=== PATIENT | female | born 1955 | race Caucasian/White ===

== ENCOUNTER 2017-11-02 21:20 | Emergency (ER) | payer MEDICARE, MEDICAID, SELFPAY ==
[2017-11-02 21:23] VITALS: BP 234/82; PULSE 73; RESP 19; TEMP 36.7; O2SAT 99; BMI 35.4
[2017-11-02 22:21] LABS: Absolute Lymphocyte Count 2.65 X10^3/ul (0.83-4.51); Absolute Neutrophil Count 5.7 X10^3/uL (2.0-7.7); Basophil# 0.06 X10^3/uL; Basophil% 0.6 % (0-1); Eosinophil# 0.25 X10^3/uL; Eosinophils% 2.7 % (0-5); Hematocrit 36.4 % (37-47); Hemoglobin 11.7 g/dl (12.0-15.0); Lymphocyte # 2.65 X10^3/ul (4.0); Lymphocyte % 28.3 % (19-41); Mean Corp Hgb Conc 32.1 g/gl (32-36); Mean Corpuscular Hgb 28.8 pg (27.0-32.0); Mean Corpuscular Volume 89.7 fL (81-99); Mean Platelet Vol. 10.6 fl (6.2-12.0); Monocyte# 0.67 X10^3/uL; Monocyte% 7.1 % (0-10); Neutrophil # 5.72 X10^3/uL (2.7-7.7); POSITIVE COUNT NO; POSITIVE DIFFERENTIAL NO; POSITIVE MORPHOLOGY NO; Platelet Count 381 K/mm3 (150-450); RBC Distribution Width CV 17.1 % (11.6-14.6); RBC Distribution Width SD 54.3 fl (35.1-43.9); Red Blood Count 4.06 M/mm3 (4.2-5.4); White Blood Count 9.4 K/mm3 (4.4-11.0)
[2017-11-02 22:31] LABS: Anion Gap 6 (5-15); BUN 7 mg/dL (7-18); BUN/Creat Ratio 13.3 RATIO (10-20); Calcium,Total 8.8 mg/dL (8.5-10.1); Chloride 105 mmol/L (98-107); Creatinine, Serum 0.53 mg/dL (0.55-1.02); EST Glomerular Filtration Rate 125 mL/min (>60); Est Glom Filt Rate - Afr Amer 152 mL/min (>60); Estimated Creatinine Clearance 92.21 ml/min; Glucose 88 mg/dL (70-110); Potassium 3.8 mmol/L (3.5-5.1); Sodium Level 141 mmol/L (136-145)
[2017-11-02 23:25] VITALS: BP 192/75; PULSE 70; RESP 13
--- NOTE | 2017-11-02 23:37 | ED.DCSUM_ITS ---
- ER Visit Summary Date of Service: 11/02/17 Chief Complaint: Swelling and redness right and left leg. History of Present Illness: The patient is a 61 F who presents because of redness to the right and left leg. She also reports swelling. She states all of these symptoms started today. She denies fever, chills night sweats. She denies neuropathy or diabetes. Per old records she has history of peripheral arterial disease. There is no history of trauma. She denies symptoms of claudication. There is a history of congestive heart failure however, she denies orthopnea PND. Physical Examination: Vital signs are marked for an elevated blood pressure 192/ 75. She is obese with a BMI of 35.4. HEENT exam is unremarkable. Heart is regular without murmur, gallop or rub. S1 and S2 are normal. Lungs are clear to auscultation with good movement of air bilaterally. There is lymphedema that is 2+ right and left leg and feet. DP pulse is palpable bilaterally. There is erythema with slight warmth anterior distal one third of the right leg and there is faint erythema anterior left leg. There is no induration, lymphangitis or popliteal/inguinal lymphadenopathy. Test Results: White count is normal with a hemoglobin 11.7. Electrode panel is normal. Emergency Department Course and Treatment: This may represent cellulitis. There is evidence of lymphedema secondary to inactivity. Blood work was obtained to assess kidney function and white count. I was informed by nursing staff several times that she requested pain medicine. She was offered Tylenol. Of note she had minimal pain when I assessed her. She does have a depressed affect. Treatment Plan: Because she has allergy to amoxicillin she was treated with clindamycin for strep and staph coverage. She was given a prescription for clindamycin. Disposition: Discharge to home with appropriate home-going instructions Impression: 1. Cellulitis anterior right leg 2. Bilateral lymphedema This note was generated with [employer] dictation software. It may contain incorrect words, spelling, and punctuation that were not noted in review of the chart prior to signing ED Disposition - Plan for ED Patient: Disposition: Home or Assisted Living Chief Complaint: Cellulitis Instructions: Discharge Instructions for Cellulitis, ED Lymphedema Prescriptions: Clindamycin HCl 300 mg PO 4X/DAY #30 cap Referrals: Isidro Brian MD [Primary Care Provider] - 3-5 Days Additional Instructions: Recommend taking Tylenol for your pain.
[2017-11-03] MEDS: Clindamycin HCl 150 MG Capsule 300 MG PO (00:11)
[2017-11-03 00:20] VITALS: BP 194/70; PULSE 71; RESP 20; O2SAT 98
--- NOTE | 2017-11-03 00:20 | ED.RN ---
PT BP ELEVATED SINCE ARRIVAL BY SQUAD IN ED. PT HYPERTENSIVE WHEN APPROVED FOR DISCHARGE. THIS RN SPOKE WITH DR. TRAN ABOUT PT ELEVATED BP SINCE DR. MICHELLE HAD LEFT FOR DAY. DR. TRAN REVIEWED PT VS IN ED AND HOME MEDICATIONS. PT EDUCATED TO MONITOR BP AT HOME TWICE DAILY FOR NEXT WEEK. PT DENIES PEÑALOZA, DIZZINESS, CHEST OR OTHER HTN SX. PT HAS FOLLOW UP WITH DR. HOWE TODAY. VERBALIZES UNDERSTANDING OF IMPORTANCE OF MONITORING BLOOD PRESSURE AND TAKING MEDICATION PRESCRIBED. PT EDUCATED TO RETURN IF HAVING ANY SX OF HTN SUCH HEADACHE DIZZINESS WEAKNESS. PT VERBALIZES UNDERSTANDING. IV D/C AND COVERED WITH 2X2 GAUZE AND PAPER TAPE. MINIMAL BLEEDING NOTED. PT WHEELED TO FAMILY VEHICLE IN WHEELCHAIR AFTER BEING ASSISTED UP TO BATHROOM BY THIS RN. PT VERBALIZES UNDERSTANDING OF HOMEGOING SCRIPT.
== END 2017-11-03 00:25 | disposition home or self-care (01) ==
PROVIDERS: Emergency Provider Emergency Medicine; Family Provider Internal Medicine; PCP Internal Medicine
DX: L03.115 Cellulitis of right lower limb (principal); I89.0 Lymphedema, not elsewhere classified; E66.9 Obesity, unspecified; Z68.35 Body mass index [BMI] 35.0-35.9, adult; I11.0 Hypertensive heart disease with heart failure; I50.9 Heart failure, unspecified; I73.9 Peripheral vascular disease, unspecified; Z79.82 Long term (current) use of aspirin; Z79.899 Other long term (current) drug therapy; Z72.0 Tobacco use
CPT/HCPCS: 80048; 85025; 99285; A4216

== ENCOUNTER 2017-11-12 13:50 | Emergency (ER) | payer MEDICARE, MEDICAID, SELFPAY ==
[2017-11-12 13:50] VITALS: BP 165/89; PULSE 79; RESP 16; TEMP 36.5; O2SAT 96; BMI 35.4
--- NOTE | 2017-11-12 14:07 | RAD_ITS ---
STUDY: X-RAY - PELVIS AND LEFT HIP REASON FOR EXAM: Female, 61 years old. Pain after fall from bed. TECHNIQUE: Radiological exam, hip, unilateral, with pelvis when performed; 2 or 3 views. COMPARISON: None. FINDINGS: There is a non-specific bowel gas pattern. Normal visualized soft tissue structures. Normal bilateral iliac wings, sacroiliac joints and visualized sacrum. Normal bilateral superior and inferior pubic rami. Normal pubic symphysis. Normal bilateral ischial tuberosities. Normal left visualized femoral head. Normal left acetabulum. Normal left hip joint space. Foreshortening of the right femoral neck. Impaction fracture of the right femoral neck into the right femoral head is worrisome. RAD/Hip 2-3 Views with Pelvis IMPRESSION: 1. No acute fracture or dislocation of the pelvis and left hip. 2. Suspicious telescoping fracture of the right femoral neck into the right femoral head. Dedicated radiographs of the right hip will be helpful if clinically warranted. Electronically Signed: Enrico Bermeo MD at 15:42 EST , Service support ,
--- NOTE | 2017-11-12 14:13 | RAD_ITS ---
STUDY: X-RAY - RIGHT KNEE REASON FOR EXAM: Female, 61 years old. Pain after fall from bed. TECHNIQUE: 4 view(s) of the knee. COMPARISON: 10/16/2017. FINDINGS: Diffuse osteopenia. Normal visualized distal femur. Osteophytic spurs in the medial and lateral proximal tibial condyles. Suspicious old fracture deformity underneath the medial femoral condyle. This is unchanged. Normal proximal tibiofibular articulation. Narrowing of the medial femorotibial compartment. Normal lateral femorotibial compartment. Pronounced narrowing of the patellofemoral articulation with chronic lateral subluxation of the patella. No joint effusion. The soft tissue structures are unremarkable. RAD/Knee 4 or More Views IMPRESSION: 1. 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 2. Mild degenerative osteoarthrosis in the medial femorotibial compartment. 3. Suspicious old fracture deformity underneath the left medial proximal tibial condyle. 4. No obvious acute fracture or dislocation. 5. No obvious significant interval changes when compared to 10/16/2017. COMMENT: If fracture remains a strong clinical suspicion, CT of the right knee with coronal and sagittal reconstructions will help clarify. Electronically Signed: Enrico Bermeo MD at 15:32 EST , Service support ,
--- NOTE | 2017-11-12 14:14 | RAD_ITS ---
STUDY: X-RAY - LEFT KNEE REASON FOR EXAM: Female, 61 years old. Pain after fall from bed. TECHNIQUE: 4 view(s) of the knee. COMPARISON: None. FINDINGS: Diffuse osteopenia. Normal visualized distal femur. Minimal spurs in the medial and lateral proximal tibial condyles. Normal proximal fibula. Normal proximal tibiofibular articulation. Pronounced narrowing of the medial femorotibial compartment due to chondromalacia. Normal lateral femorotibial compartment. Pronounced narrowing of the patellofemoral articulation with spur formation. There is chronic lateral subluxation of patella. The soft tissue structures are unremarkable. RAD/Knee 4 or More Views IMPRESSION: 1. No suspicious acute fracture or dislocation of the left knee. 2. Pronounced degenerative osteoarthrosis of the patellofemoral articulation with probable chronic lateral subluxation of the patella. 3. 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 Electronically Signed: Enrico Bermeo MD at 15:33 EST , Service support ,
[2017-11-12] MEDS: oxyCODONE 5 MG Tablet PO (14:26)
[2017-11-12 14:34] LABS: Absolute Lymphocyte Count 2.56 X10^3/ul (0.83-4.51); Absolute Neutrophil Count 9.4 X10^3/uL (2.0-7.7); Basophil# 0.04 X10^3/uL; Basophil% 0.3 % (0-1); Eosinophil# 0.08 X10^3/uL; Eosinophils% 0.6 % (0-5); Hematocrit 42.6 % (37-47); Hemoglobin 14.3 g/dl (12.0-15.0); Lymphocyte # 2.56 X10^3/ul (4.0); Lymphocyte % 20.3 % (19-41); Mean Corp Hgb Conc 33.6 g/gl (32-36); Mean Corpuscular Hgb 29.4 pg (27.0-32.0); Mean Corpuscular Volume 87.7 fL (81-99); Mean Platelet Vol. 9.5 fl (6.2-12.0); Monocyte# 0.52 X10^3/uL; Monocyte% 4.1 % (0-10); Neutrophil # 9.38 X10^3/uL (2.7-7.7); Neutrophil % 74.5 % (47-70); POSITIVE COUNT NO; POSITIVE DIFFERENTIAL NO; POSITIVE MORPHOLOGY NO; Platelet Count 399 K/mm3 (150-450); RBC Distribution Width CV 16.7 % (11.6-14.6); RBC Distribution Width SD 53.5 fl (35.1-43.9); Red Blood Count 4.86 M/mm3 (4.2-5.4); White Blood Count 12.6 K/mm3 (4.4-11.0)
[2017-11-12 14:48] LABS: Anion Gap 7 (5-15); BUN 7 mg/dL (7-18); BUN/Creat Ratio 12.6 RATIO (10-20); Chloride 106 mmol/L (98-107); Creatinine, Serum 0.56 mg/dL (0.55-1.02); EST Glomerular Filtration Rate 118 mL/min (>60); Est Glom Filt Rate - Afr Amer 142 mL/min (>60); Estimated Creatinine Clearance 87.27 ml/min; Glucose 95 mg/dL (74-106); Potassium 3.6 mmol/L (3.5-5.1); Sodium Level 137 mmol/L (136-145)
--- NOTE | 2017-11-12 15:53 | EKG12_ITS ---
Test Reason : DYSRHYTHMIA Blood Pressure : / mmHG Vent. Rate : 071 BPM Atrial Rate : 071 BPM P-R Int : 170 ms QRS Dur : 084 ms QT Int : 404 ms P-R-T Axes : 065 079 076 degrees QTc Int : 439 ms Normal sinus rhythm Poor R wave progression Confirmed by SHAVON ESCOBAR, AURORA ([id number]), news editor MORTEZA HUSTON ([id number]) on 11/14/2017 9:44:29 AM Referred By: MELLY Confirmed By:AURORA SANDS MD
[2017-11-12] MEDS: Ondansetron 4 MG/2 ML Vial IV (16:01)
--- NOTE | 2017-11-12 16:15 | RAD_ITS ---
STUDY: X-RAY - PELVIS AND RIGHT HIP REASON FOR EXAM: Female, 61 years old. Fall TECHNIQUE: Radiological exam, hip, unilateral, with pelvis when performed; 2 or 3 views. COMPARISON: None. FINDINGS: The bones are diffusely demineralized. There are surgical clips within the right inguinal region. There appears to be a subcapital femoral fracture. There are degenerative changes of the right hip. RAD/Hip Min 2 Views (Portable) IMPRESSION: Findings concerning for a nondisplaced right femoral fracture. Electronically Signed: Lianet Mcghee MD at 17:22 EST Tel , Service support ,
--- NOTE | 2017-11-12 16:22 | CT_ITS ---
Study: CT right lower extremity without contrast Prior study: None. CLINICAL HISTORY: Status post fall from syncope, abnormal right hip x-ray PROCEDURE: Multiple computed tomographic images of the right hip were obtained at 2.5 mm intervals using contiguous 2.5 mm thick slices in the axial projection. Coronal and sagittal reconstructions were obtained. Radiation dose: Total exam DLP: 1025.46 FINDINGS: There is no evidence of fracture of the visualized proximal right femur, right hip, or right hemipelvis. There are degenerative changes of the right femoral head with subchondral geode formation. Joint space narrowing is seen. There is subcutaneous fatty stranding of the medial right gluteal region. There is no evidence of soft tissue hematoma. Soft tissue fascial planes are preserved. An iliac bypass graft is noted. CT/Extremity Lower without Contra IMPRESSION: No evidence of fracture. Degenerative changes of the right hip as reported above. Subcutaneous fatty stranding of the medial right gluteal region. Electronically Signed: Gordon Munoz MD at 18:15 EST , Service support ,
[2017-11-12 16:24] VITALS: BP 157/79; PULSE 69; RESP 16; O2SAT 95
--- NOTE | 2017-11-12 16:26 | ED.VISSUMM ---
- ER Visit Summary Date of Service: 11/12/17 Chief Complaint: Bilateral hip and knee pain after rolling out of bed History of Present Illness: The patient is a 61 F rolled out of bed today and landed on her left hip but then essentially rolled over and hit her right hip and knee as well. She was able to walk afterwards but is having pain, mostly in the left hip. She did not hit her head or lose consciousness. She recalls the entire event and is quite adamant that she did not lose consciousness or have a syncopal event. She has no symptoms of infection or other complaints at this time. Physical Examination: No sign of head trauma. No neck tenderness. Heart tones are regular without murmur. Lungs are clear bilaterally. Abdomen is soft and nontender. No focal or lateralizing neuro findings. She does have tenderness on the left hip laterally but no pain with logroll. Bilateral knee tenderness but still fairly full range of motion. Skin is intact. No deformity. Normal distal neurovascular examination. She does have a wound on her right distal leg which she states is being treated as an outpatient and actually looks better than it has for the last few months. Test Results: Labs are basically within normal limits. Left hip plain films negative for acute fracture but revealed a possible right femoral neck fracture seen on the AP pelvis. Bilateral knee plain films negative for acute fracture. There is an old appearing fracture on the right however she really does not have any significant tenderness there and I do not think she needs a CT of the right knee as I think the likelihood of an occult fracture is extremely low. In terms of her right hip, I did reevaluate her and she does have moderate tenderness laterally but really no significant pain with logroll. She was bearing weight at home without much difficulty. I did obtain dedicated right hip plain films and the cortex appears fairly smooth inferiorly but there is a possible femoral neck fracture noted. I am not absolutely convinced that this represents a fracture and I think a CT scan is indicated at this time. This will be turned over to the oncoming physician to check the results. If negative, she would like to go home because she was ambulating prior to arrival however if positive she will be admitted for orthopedics consultation. Emergency Department Course and Treatment: CT right hip pending, to be checked by the oncoming physician Treatment Plan: Discharge home if CT right hip negative, admit if there is a fracture Disposition: Impression: Initial encounter bilateral knee contusions, initial encounter left hip contusion, initial encounter right hip pain with possible femoral neck fracture, CT scan pending This note was generated with [employer] dictation software. It may contain incorrect words, spelling, and punctuation that were not noted in review of the chart prior to signing ED Disposition - Plan for ED Patient: Chief Complaint: Syncope Referrals: Isidro Brian MD [Primary Care Provider] -
--- NOTE | 2017-11-12 18:21 | ED.DEP ---
ED Disposition - Plan for ED Patient: Chief Complaint: Syncope Instructions: ED Contusion Soft Tissue Referrals: Isidro Brian MD [Primary Care Provider] -
[2017-11-12] MEDS: oxyCODONE 5 MG Tablet 10 MG PO (18:30)
[2017-11-12 18:39] VITALS: BP 157/74; PULSE 74; O2SAT 93
== END 2017-11-12 18:41 | disposition home or self-care (01) ==
PROVIDERS: Emergency Provider Emergency Medicine; Family Provider Internal Medicine; PCP Internal Medicine
DX: S70.02XA Contusion of left hip, initial encounter (principal); S80.02XA Contusion of left knee, initial encounter; S80.01XA Contusion of right knee, initial encounter; M25.551 Pain in right hip; W06.XXXA Fall from bed, initial encounter; Y93.89 Activity, other specified; Y92.9 Unspecified place or not applicable; I73.9 Peripheral vascular disease, unspecified; I10 Essential (primary) hypertension; E78.00 Pure hypercholesterolemia, unspecified; F17.200 Nicotine dependence, unspecified, uncomplicated; Z79.82 Long term (current) use of aspirin; Z79.899 Other long term (current) drug therapy
CPT/HCPCS: 73502; 73564; 73700; 80048; 85025; 93005; 96374; 99285; A4216; J2405

== ENCOUNTER → 2018-06-04 12:44 | Outpatient (CLI) | payer MEDICARE, MEDICAID, SELFPAY ==
[2018-06-04 13:39] LABS: BUP Internal Control LINE = VALID (VALID); Buprenorphine Drug Screen Positive (<10 ng/mL)
[2018-06-04 13:46] LABS: Amphetamine Urine VISTA NEGATIVE (<1000 ng/mL); Barbiturate Urine VISTA NEGATIVE (< 200 ng/mL); Benzodiazepine Urine VISTA NEGATIVE (< 200 ng/mL); Cocaine Urine VISTA NEGATIVE (< 300 ng/mL); Ecstacy Urine VISTA POSITIVE (< 500 ng/mL); Methadone Urine VISTA NEGATIVE (< 300 ng/mL); PCP Urine VISTA NEGATIVE (< 25 ng/mL); THC Urine VISTA NEGATIVE (< 50 ng/mL); Vista UDS pH Range 5
== END ==
PROVIDERS: Family Provider Internal Medicine; PCP Internal Medicine; Visit Provider Anesthesiology Pain Medicine
DX: F11.20 Opioid dependence, uncomplicated (principal)
CPT/HCPCS: 80307

== ENCOUNTER → 2018-06-25 12:30 | Outpatient (CLI) | payer MEDICARE, MEDICAID, SELFPAY ==
[2018-06-25 12:45] LABS: Mucous, Urine 0 SEEN /hpf (<or=2+)
[2018-06-25 13:08] LABS: Color, Urine Yellow (Yellow); Glucose, Dipstick Normal (Normal); Ketone-Dipstick Negative (Negative); Leukocyte Esterase-Dipstick 25 /ul (Negative); Nitrite-Dipstick Negative (Negative); Occult Blood-Urine 10 /ul (Negative); Protein-Dipstick 30 mg/dl (Negative); Urine Bilirubin Dipstick Negative (Negative); Urine Clarity Sl. Cloudy (Clear); Urine Urobilinogen Normal (Normal)
[2018-06-25 13:14] LABS: Bacteria RARE /hpf (None Seen); Red Blood Cells-Urine 0-5 SEEN /hpf (0-5); Squamous Epithelial Cells - UA 0-5 SEEN /hpf (5-10); White Blood Cells 0-5 SEEN /hpf (0-5)
[2018-06-25 13:42] LABS: ALB/GLOB Ratio 0.6 RATIO (0.9-2.4); AST(SGOT) 16 U/L (15-37); Alanine Aminotransfer ALT/SGPT 11 U/L (13-56); Albumin, Serum 2.7 g/dL (3.2-5.0); Alkaline Phosphatase 118 U/L (45-117); Anion Gap 9 (5-15); BUN 15 mg/dL (7-18); BUN/Creat Ratio 19.3 RATIO (10-20); Calcium,Total 8.6 mg/dL (8.5-10.1); Chloride 107 mmol/L (98-107); Creatinine, Serum 0.78 mg/dL (0.55-1.02); EST Glomerular Filtration Rate 80 mL/min (>60); Est Glom Filt Rate - Afr Amer 96 mL/min (>60); Globulin 4.7 g/dL (2.2-4.2); Glucose 101 mg/dL (74-106); Potassium 4.4 mmol/L (3.5-5.1); Protein, Total 7.4 g/dL (6.4-8.2); Sodium Level 139 mmol/L (136-145)
== END ==
PROVIDERS: Family Provider Internal Medicine; PCP Internal Medicine; Visit Provider Internal Medicine
DX: K81.9 Cholecystitis, unspecified (principal); R82.99 Other abnormal findings in urine
CPT/HCPCS: 36415; 80053; 81001

== ENCOUNTER 2018-07-06 11:00 | Outpatient (RCR) | payer MEDICARE, MEDICAID, SELFPAY ==
[2018-06-15 09:16] VITALS: BP 148/62; PULSE 89; RESP 18; TEMP 35.1; BMI 33.6
--- NOTE | 2018-06-15 10:49 | PCM.WC.HP ---
(1) Peripheral arterial disease Status: Chronic Current Visit: Yes Code(s): I73.9 - Peripheral vascular disease, unspecified (2) Peripheral neuropathy Status: Chronic Current Visit: Yes Qualifiers: Peripheral neuropathy type: polyneuropathy associated with underlying disease Qualified Code(s): G63 - Polyneuropathy in diseases classified elsewhere Code(s): G62.9 - Polyneuropathy, unspecified (3) Tobacco abuse Status: Chronic Current Visit: Yes Code(s): Z72.0 - Tobacco use (4) Ulcer of left lower extremity with fat layer exposed Status: Chronic Current Visit: No Code(s): L97.922 - Non-pressure chronic ulcer of unspecified part of left lower leg with fat layer exposed (5) Venous insufficiency Status: Chronic Current Visit: Yes Code(s): I87.2 - Venous insufficiency (chronic) (peripheral) (6) stents in leg for neuropathy Status: Chronic Current Visit: Yes (7) Traumatic ulcer of left lower leg with fat layer exposed Status: Acute Current Visit: Yes Code(s): L97.922 - Non-pressure chronic ulcer of unspecified part of left lower leg with fat layer exposed History of Present Illness Date of Service: 06/15/18 Chief Complaint: Left lower leg ulcer for 3 months History of Wound: -year-old white female they came to us with an open ulcer on her left lower extremity. Patient hit it on a chair or something at home has been using antibiotic ointments she thought she had closed it and then it reopened and is now much deeper and bigger. Been followed by her primary care doctor that has been using Santyl on the ulcer and is now referred to the wound center for not improvement. Patient has the glove effect up just above the ulcer on both legs of peripheral arterial disease of redness and poor circulation. Skin is hard and she suffers from neuropathy. Past Medical History Past Medical History: Chronic Problems (Last Reviewed 06/06/18 @ 13:17 by Yaima Daniel) Ulcer of left lower extremity with fat layer exposed (Chronic) Venous insufficiency (Chronic) Tricompartmental knee joint arthritis (Chronic) Degeneration of lumbar intervertebral disc (Chronic) Asymptomatic postmenopausal status (Chronic) Impaired physical mobility (Chronic) stents in leg for neuropathy (Chronic) trigeminal neuralgia repair (Chronic) Anxiety (Chronic) Hypertension (Chronic) Dyspnea on exertion (Chronic) Peripheral arterial disease (Chronic) Peripheral neuropathy (Chronic) Localized swelling, mass or lump of neck (Chronic) Gallstone (Chronic) Goiter (Chronic) Tobacco abuse (Chronic) Past Medical History: Open ulcer traumatic left inner leg Surgical History: - Allergies/Adverse Reactions: Allergies amoxicillin Allergy (Unknown, Verified 05/25/18 15:57) Vomiting Home Medications: Ambulatory Orders Medication Instructions Recorded Tizanidine HCl [Zanaflex] 4 mg PO 4X/DAY 07/26/17 Aspirin [Aspirin, Baby] 81 mg PO DAILY@0800 07/27/17 traZODone [Desyrel] 50 mg PO QHS PRN 08/17/17 Buprenorphine 1 patch TRANSDERMAL QWEEK #1 10/19/17 patch.tdwk lisinopril 5 mg tablet 10 mg PO BID tab 11/03/17 albuterol sulfate HFA 90 2 puff INHALATION Q6H 02/06/18 mcg/actuation aerosol inhaler gabapentin 600 mg tablet 400 mg PO .qid tab 02/06/18 tramadol 50 mg tablet 50 mg PO ONCE 02/06/18 duloxetine 30 mg capsule,delayed 60 mg PO DAILY #180 cap 03/01/18 release varenicline 0.5 mg (11)-1 mg (42) See Label Instructions PO PER PKG 06/06/18 tablets in a dose pack DIR #53 tab - Family History Maternal Family History: Family History (Last Reviewed 06/06/18 @ 13:17 by Yaima Daniel) Mother Heart disease Myocardial infarction Hypertension Father Cancer Heart Disease Paternal Family History: Family History (Last Reviewed 06/06/18 @ 13:17 by Yaima Daniel) Mother Heart disease Myocardial infarction Hypertension Father Cancer No pertinent history Smoking Status: Current every day smoker Review of Systems Constitutional: Denies: Chills, Fever Eyes: Denies: Blurred vision, Drainage, Pain HEENT: Denies: Difficulty Hearing, Difficulty Swallowing, Sore Throat, Visual Changes Cardiovascular: Denies: Chest Pain, Palpitations, Syncope Respiratory: Denies: Cough, Shortness of Breath Gastrointestinal: Denies: Abdominal Pain, Nausea, Vomiting Genitourinary: Denies: Dysuria, Frequency Musculoskeletal: Denies: Joint Pain, Muscle pain Skin: Reports: Wounds - Left lower leg ulcer traumatic. Denies: Jaundice, Rash Neurological: Denies: Balance problems, Change in Speech, Difficulty swallowing, Focal weakness Psychiatric: Denies: Anxiety, Depression Endocrine: Denies: Change in Body Habitus Hematologic/ Lymphatic: Denies: Adenopathy - Physical Exam Vital Signs Temp Pulse Resp BP 95.1 F L 89 18 148/62 H 06/15/18 09:16 06/15/18 09:16 06/15/18 09:16 06/15/18 09:16 General: Oriented x3, Cooperative, Well developed HEENT: Atraumatic, PERRLA Oral: Moist Mucosa Neck: Supple, No JVD Lungs: Clear to auscultation, Normal air movement Cardiovascular: Regular rate, Regular Rhythm, Murmur Abdomen: Bowel Sounds Present, Soft, Non Tender, No Hepato-splenomegaly Extremities: No clubbing, No edema Skin: Ulcer/ Wound - Ulcer on her left lower leg inner traumatic Wound Measurements and Assessment WC - Nurse 1 - General Ulcer Measurement Start: 06/15/18 08:56 Freq: Status: Active Protocol: Activity Type Activity Date Activity User E-Sign Co-Sign Detail Recorded Client Recorded Date Recorded By Document 06/15/18 09:16 [id number] 06/15/18 09:41 06/15/18 09:16 Wound Center Nurse 1 [Ulcer Assessment] #1 LLE MEDIAL ULCER -Combined with other wound No -Current Size (cm) - Length 4.3 -Current Size (cm) - Width 2.8 -Current Size (cm) - Depth 0.3 -Total Square Cm 12.04 -Date of Last Picture (Recall this 06/15/18 field) -Photo Taken Yes -Epithelialization None Present -Tunneling No -Undermining/Tunneling Yes -Undermining/Tunneling Starts (O' 2 clock) -Undermining/Tunneling Ends (O'clock) 4 -Maximum Distance (cm) 0.4 -Circular Undermining No -Exudate Amt Medium (34-66%) -Exudate Type Serosanguineous -Wound Margin Distinct, Outline Attached -Granulation Amt None Present (0 %) -Granulation Quality N/A -Slough/Fibrin Yes -Necrosis Amt Medium (34-66%) -Necrotic Tissue Type Adherent Slough -Structure Exposed None/Limited to Skin Breakdown -Texture (Pilar-wound Skin Appearance) Assessed Localized Edema -Moisture (Pilar-wound Skin Appearance No Abnormality ) Assessed -Color (Pilar-wound Skin Appearance) Assessed Erythema -Temperature (Pilar-wound Skin No Abnormality Appearance) (Pt Warm) -Tenderness on Palpation (Pilar-wound No Skin Appearance) -Ulcer Cleansing Rinsed/ Irrigated with Saline -Foul Odor after Cleansing No -Anesthetic Used 4% Lidocaine Solution [Edema Assessment] -Lower Limb Edema Present Yes -Right Calf (cm) 32 -Right Ankle (cm) 21.5 -Left Calf (cm) 40 -Left Ankle (cm) 22 WC - Nurse 2 - General Ulcer CM Notes Start: 06/15/18 08:56 Freq: Status: Active Protocol: Activity Type Activity Date Activity User E-Sign Co-Sign Detail Recorded Client Recorded Date Recorded By Document 06/15/18 09:55 MW [id number] 06/15/18 10:02 MW 06/15/18 09:55 Wound Center Nurse 2 [Procedure/Treatment] #1 LLE MEDIAL ULCER -Time 09:56 -Correct Patient Yes -Correct Side, Site, Position Yes -Correct Procedure Yes -Procedure Performed Yes -Type of Procedure Debridement -Clinical Debridement Subcutaneous -Post Debridement Size (cm) - Length 4.3 -Post Debridement Size (cm) - Width 2.5 -Post Debridement Size (cm) - Depth 1.5 -Total Square Cm 10.75 -Wound/Ulcer Outcome Not Healed -Ulcer Cleansing Rinsed/ Irrigated with Saline -Foul Odor after Cleansing No -Bioengineered Tissue No -Bleeding Controlled with Pressure -Treatment Response Procedure Tolerated Well [See Physician Procedure note for Specifics] Pain Scale: 0-10 Numeric [Pain] -Is Patient Pain Free? Yes Musculoskeletal: No Tenderness to Palpation of Joints or Extremities Lymphatic: No Cervical, Supraclavicular, or Inguinal Adenopathy Neurological: Cranial nerves II-XII grossly intact, Neuro grossly intact Psych/Mental Status: Normal Affect, Appropriate Debridement Note Post-Debridement Measurements/Treatment WC - Nurse 2 - General Ulcer CM Notes Start: 06/15/18 08:56 Freq: Status: Active Protocol: Activity Type Activity Date Activity User E-Sign Co-Sign Detail Recorded Client Recorded Date Recorded By Document 06/15/18 09:55 MW [id number] 06/15/18 10:02 MW 06/15/18 09:55 Wound Center Nurse 2 #1 LLE MEDIAL ULCER -Time 09:56 -Correct Patient Yes -Correct Side, Site, Position Yes -Correct Procedure Yes -Procedure Performed Yes -Type of Procedure Debridement -Clinical Debridement Subcutaneous -Post Debridement Size (cm) - Length 4.3 -Post Debridement Size (cm) - Width 2.5 -Post Debridement Size (cm) - Depth 1.5 -Total Square Cm 10.75 -Wound/Ulcer Outcome Not Healed -Ulcer Cleansing Rinsed/ Irrigated with Saline -Foul Odor after Cleansing No -Bioengineered Tissue No -Bleeding Controlled with Pressure -Treatment Response Procedure Tolerated Well Pain Scale: 0-10 Numeric Is Patient Pain Free? Yes Wound debrided: Eft lower leg medial side traumatic Type of Debridement: Excisional debridement Anesthesia Used: 5% Lidocaine Gel Depth: Down to and including healthy tissue, in the subcutaneous layer, to muscle Percentage of wound debrided: 100 Instrument Used: 7mm curette Tissue Removed: Fibrin and devitalized tissue Severity: Fat Layer Exposed Amount of bleeding with debridement: Mild Bleeding Controlled with: Compression and gauze Patient tolerated procedure well Assessment/Plan Active Problems (Last Reviewed 06/06/18 @ 13:17 by Yaima Daniel) Traumatic ulcer of left lower leg with fat layer exposed (Acute) Venous insufficiency (Chronic) stents in leg for neuropathy (Chronic) Peripheral arterial disease (Chronic) Peripheral neuropathy (Chronic) Tobacco abuse (Chronic) Assessment: Traumatic ulcer left lower leg. PAD. PVD. Neuropathy bilateral lower legs Plan: Wash leg with Hibiclens. Continue using Santyl to the wound base nickel thickness cover with moistened gauze then regular gauze Mik and a single layer Tubigrip. Follow-up in 2 weeks
[2018-07-06 11:54] VITALS: BP 135/54; PULSE 95; RESP 16; TEMP 35.8; BMI 33.6
--- NOTE | 2018-07-06 12:28 | PCM.WC.PN ---
(1) Peripheral arterial disease Status: Chronic Current Visit: Yes Code(s): I73.9 - Peripheral vascular disease, unspecified (2) Peripheral neuropathy Status: Chronic Current Visit: Yes Qualifiers: Peripheral neuropathy type: polyneuropathy associated with underlying disease Qualified Code(s): G63 - Polyneuropathy in diseases classified elsewhere Code(s): G62.9 - Polyneuropathy, unspecified (3) Tobacco abuse Status: Chronic Current Visit: Yes Code(s): Z72.0 - Tobacco use (4) Ulcer of left lower extremity with fat layer exposed Status: Chronic Current Visit: No Code(s): L97.922 - Non-pressure chronic ulcer of unspecified part of left lower leg with fat layer exposed (5) Venous insufficiency Status: Chronic Current Visit: Yes Code(s): I87.2 - Venous insufficiency (chronic) (peripheral) (6) stents in leg for neuropathy Status: Chronic Current Visit: Yes (7) Traumatic ulcer of left lower leg with fat layer exposed Status: Acute Current Visit: Yes Code(s): L97.922 - Non-pressure chronic ulcer of unspecified part of left lower leg with fat layer exposed Type of Wound Chief Complaint: Left lower leg ulcer for 3 months History of Wound: -year-old white female they came to us with an open wound on her left lower extremity. Patient hit it on a chair or something at home has been using antibiotic ointments she thought she had closed it and then it reopened and is now much deeper and bigger. Been followed by her primary care doctor that has been using Santyl on the wound and is now referred to the wound center for not improvement. Patient has the glove effect up just above the ulcer on both legs of peripheral arterial disease of redness and poor circulation. Skin is hard and she suffers from neuropathy. Progress of Wound: Today is the first time we have seen her in over 2 weeks patient was put on Santyl which seems to be helping with the debridement. Large amounts of yellow slough was cleaned out of the wound. Patient tolerated well will continue using Santyl for another week before changing to may be a skin substitute. - Physical Exam Vital Signs Temp Pulse Resp BP 96.5 F L 95 16 135/54 H 07/06/18 11:54 07/06/18 11:54 07/06/18 11:54 07/06/18 11:54 General: Oriented x3, Cooperative, Well developed HEENT: Atraumatic, PERRLA Oral: Moist Mucosa Neck: Supple, No JVD Lungs: Clear to auscultation, Normal air movement Cardiovascular: Regular rate, Regular Rhythm Abdomen: Bowel Sounds Present, Soft, Non Tender, No Hepato-splenomegaly Extremities: No clubbing, Edema, - Skin: Ulcer/ Wound - Wound left lower medial leg Wound Measurements and Assessment WC - Nurse 1 - General Ulcer Measurement Start: 06/15/18 08:56 Freq: Status: Active Protocol: Activity Type Activity Date Activity User E-Sign Co-Sign Detail Recorded Client Recorded Date Recorded By Document 07/06/18 11:54 MT [id number] 07/06/18 11:56 MT 07/06/18 11:54 Wound Center Nurse 1 [Ulcer Assessment] #1 LLE MEDIAL ULCER -Combined with other wound No -Current Size (cm) - Length 4.5 -Current Size (cm) - Width 2.2 -Current Size (cm) - Depth 0.2 -Total Square Cm 9.90 -Photo Taken No -Tunneling No -Undermining/Tunneling No -Circular Undermining No -Exudate Amt Small (1-33%) -Exudate Type Serosanguineous -Wound Margin Thickened & Rolled Under -Granulation Amt Large (67-100%) -Granulation Quality Pale -Necrosis Amt Small (1-33%) -Necrotic Tissue Type Adherent Slough -Texture (Pilar-wound Skin Appearance) Assessed Localized Edema -Moisture (Pilar-wound Skin Appearance Assessed ) -Color (Pilar-wound Skin Appearance) Assessed Hemosiderin Staining -Temperature (Pilar-wound Skin No Abnormality Appearance) (Pt Warm) -Tenderness on Palpation (Pilar-wound Yes Skin Appearance) -Ulcer Cleansing Rinsed/ Irrigated with Saline -Foul Odor after Cleansing No -Anesthetic Used 4% Lidocaine Solution [Edema Assessment] -Lower Limb Edema Present Yes -Left Calf (cm) 38 -Left Ankle (cm) 22.5 WC - Nurse 2 - General Ulcer CM Notes Start: 06/15/18 08:56 Freq: Status: Active Protocol: Activity Type Activity Date Activity User E-Sign Co-Sign Detail Recorded Client Recorded Date Recorded By Document 07/06/18 12:03 MW [id number] 07/06/18 12:05 MW 09/28/18 12:03 Wound Center Nurse 2 [Procedure/Treatment] #1 LLE MEDIAL ULCER -Time 12:04 -Correct Patient Yes -Correct Side, Site, Position Yes -Correct Procedure Yes -Procedure Performed Yes -Type of Procedure Debridement -Clinical Debridement Subcutaneous -Post Debridement Size (cm) - Length 4.5 -Post Debridement Size (cm) - Width 2.2 -Post Debridement Size (cm) - Depth 0.3 -Total Square Cm 9.90 -Wound/Ulcer Outcome Not Healed -Ulcer Cleansing Rinsed/ Irrigated with Saline -Foul Odor after Cleansing No -Bioengineered Tissue No -Bleeding Controlled with Pressure -Treatment Response Procedure Tolerated Well [See Physician Procedure note for Specifics] Pain Scale: 0-10 Numeric [Pain] -Is Patient Pain Free? Yes Musculoskeletal: No Tenderness to Palpation of Joints or Extremities Lymphatic: No Cervical, Supraclavicular, or Inguinal Adenopathy Neurological: Cranial nerves II-XII grossly intact, Neuro grossly intact Psych/Mental Status: Normal Affect, Appropriate Debridement Note Post-Debridement Measurements/Treatment WC - Nurse 2 - General Ulcer CM Notes Start: 06/15/18 08:56 Freq: Status: Active Protocol: Activity Type Activity Date Activity User E-Sign Co-Sign Detail Recorded Client Recorded Date Recorded By Document 06/15/18 09:55 MW [id number] 06/15/18 10:02 MW Document 07/06/18 12:03 MW [id number] 07/06/18 12:05 MW 06/15/18 07/06/18 09:55 12:03 Wound Center Nurse 2 #1 LLE MEDIAL ULCER -Time 09:56 12:04 -Correct Patient Yes Yes -Correct Side, Site, Position Yes Yes -Correct Procedure Yes Yes -Procedure Performed Yes Yes -Type of Procedure Debridement Debridement -Clinical Debridement Subcutaneous Subcutaneous -Post Debridement Size (cm) - Length 4.3 4.5 -Post Debridement Size (cm) - Width 2.5 2.2 -Post Debridement Size (cm) - Depth 1.5 0.3 -Total Square Cm 10.75 9.90 -Wound/Ulcer Outcome Not Healed Not Healed -Ulcer Cleansing Rinsed/ Rinsed/ Irrigated with Irrigated with Saline Saline -Foul Odor after Cleansing No No -Bioengineered Tissue No No -Bleeding Controlled with Pressure Pressure -Treatment Response Procedure Procedure Tolerated Well Tolerated Well Pain Scale: 0-10 Numeric Is Patient Pain Free? Yes Yes Wound debrided: Left lower leg wound Type of Debridement: Excisional debridement Anesthesia Used: 5% Lidocaine Gel Depth: Down to and including healthy tissue, in the subcutaneous layer, to muscle Percentage of wound debrided: 100 Instrument Used: 7mm curette Tissue Removed: Slough Amount of bleeding with debridement: Mild Assessment/Plan Active Problems (Last Reviewed 06/06/18 @ 13:17 by Yaima Daniel) Traumatic ulcer of left lower leg with fat layer exposed (Acute) Venous insufficiency (Chronic) stents in leg for neuropathy (Chronic) Peripheral arterial disease (Chronic) Peripheral neuropathy (Chronic) Tobacco abuse (Chronic) Assessment: Traumatic ulcer left lower leg. PAD. PVD. Neuropathy bilateral lower legs Plan: Wash leg with Hibiclens. Continue using Santyl to the wound base nickel thickness cover with moistened gauze then regular gauze Mik and a single layer Tubigrip. Follow-up in 1 weeks
== END 2018-07-08 23:59 ==
LOC: WC 11:00
PROVIDERS: Family Provider Internal Medicine; PCP Internal Medicine; Visit Provider Nurse Practitioner
DX: I73.9 Peripheral vascular disease, unspecified (principal); G62.9 Polyneuropathy, unspecified; I87.2 Venous insufficiency (chronic) (peripheral); L97.822 Non-pressure chronic ulcer of other part of left lower leg with fat layer exposed; Z72.0 Tobacco use; I10 Essential (primary) hypertension; Z79.899 Other long term (current) drug therapy; Z79.82 Long term (current) use of aspirin
CPT/HCPCS: 11042; 87070; 87075; 87076; 87077; 87186; 87205; 99213; G0463

== ENCOUNTER 2018-07-20 08:19 | Outpatient (RCR) | payer MEDICARE, SELFPAY ==
[2018-07-09 00:15] VITALS: BP 135/54; PULSE 95; RESP 16; TEMP 35.8
[2018-07-20 11:31] VITALS: BP 123/56; PULSE 62; RESP 18; TEMP 35.8
--- NOTE | 2018-07-20 12:39 | PN.PCM_ITS ---
(1) MRSA (methicillin resistant Staphylococcus aureus) infection Status: Acute Current Visit: Yes Code(s): A49.02 - Methicillin resistant Staphylococcus aureus infection, unspecified site (2) Nonhealing ulcer of left lower extremity Status: Acute Current Visit: Yes Code(s): L97.929 - Non-pressure chronic ulcer of unspecified part of left lower leg with unspecified severity Type of Wound Chief Complaint: Left lower leg ulcer for 3 months History of Wound: -year-old white female they came to us with an open wound on her left lower extremity. Patient hit it on a chair or something at home has been using antibiotic ointments she thought she had closed it and then it reopened and is now much deeper and bigger. Been followed by her primary care doctor that has been using Santyl on the wound and is now referred to the wound center for not improvement. Patient has the glove effect up just above the ulcer on both legs of peripheral arterial disease of redness and poor circulation. Skin is hard and she suffers from neuropathy. Progress of Wound: Santyl which seems to be helping with the debridement somewhat we had to score today but did get a lot of debridement out. Recultured her because she was growing MRSA and some other bizarre bacteria's. Large amounts of yellow slough was cleaned out of the wound. Will apply for skin substitute for her and continue with the Santyl to we can get it cleaned. Still very dark and erythematous around the edge of the wound - Physical Exam Vital Signs Temp Pulse Resp BP 96.4 F L 62 18 123/56 H 07/20/18 11:31 07/20/18 11:31 07/20/18 11:31 07/20/18 11:31 General: Oriented x3, Cooperative, Well developed HEENT: Atraumatic, PERRLA Oral: Moist Mucosa Neck: Supple, No JVD Lungs: Clear to auscultation, Normal air movement Cardiovascular: Regular rate, Regular Rhythm Abdomen: Bowel Sounds Present, Soft, Non Tender, No Hepato-splenomegaly Extremities: No clubbing, No edema, - - Left lower leg wound Wound Measurements and Assessment WC - Nurse 1 - General Ulcer Measurement Start: 07/20/18 11:30 Freq: Status: Active Protocol: Activity Type Activity Date Activity User E-Sign Co-Sign Detail Recorded Client Recorded Date Recorded By Document 10/12/18 11:31 RB [id number] 07/20/18 11:47 RB 07/20/18 11:31 Wound Center Nurse 1 [Ulcer Assessment] #1 LLE MEDIAL ULCER -Combined with other wound No -Current Size (cm) - Length 4.5 -Current Size (cm) - Width 2.1 -Current Size (cm) - Depth 0.4 -Total Square Cm 9.45 -Photo Taken No -Tunneling No -Undermining/Tunneling No -Circular Undermining No -Exudate Amt Small (1-33%) -Exudate Type Serosanguineous -Wound Margin Distinct, Outline Attached -Granulation Amt Small (1-33%) -Granulation Quality [place] -Slough/Fibrin Yes -Necrosis Amt Large (67-100%) -Necrotic Tissue Type Adherent Slough -Structure Exposed N/A -Texture (Pilar-wound Skin Appearance) Assessed -Moisture (Pilar-wound Skin Appearance Assessed ) -Color (Pilar-wound Skin Appearance) Assessed -Temperature (Pilar-wound Skin No Abnormality Appearance) (Pt Warm) -Tenderness on Palpation (Pilar-wound No Skin Appearance) -Ulcer Cleansing Rinsed/ Irrigated with Saline -Foul Odor after Cleansing No -Anesthetic Used 5% Lidocaine Gel [Edema Assessment] -Lower Limb Edema Present Yes -Left Calf (cm) 37 -Left Ankle (cm) 20 WC - Nurse 2 - General Ulcer CM Notes Start: 07/20/18 11:30 Freq: Status: Active Protocol: Activity Type Activity Date Activity User E-Sign Co-Sign Detail Recorded Client Recorded Date Recorded By Document 07/20/18 12:12 MW [id number] 07/20/18 12:15 MW 07/20/18 12:12 Wound Center Nurse 2 [Procedure/Treatment] #1 LLE MEDIAL ULCER -Time 12:12 -Correct Patient Yes -Correct Side, Site, Position Yes -Correct Procedure Yes -Procedure Performed Yes -Type of Procedure Debridement -Clinical Debridement Subcutaneous -Post Debridement Size (cm) - Length 4.5 -Post Debridement Size (cm) - Width 2.0 -Post Debridement Size (cm) - Depth 0.3 -Total Square Cm 9.00 -Wound/Ulcer Outcome Not Healed -Ulcer Cleansing Rinsed/ Irrigated with Saline -Foul Odor after Cleansing No -Bioengineered Tissue No -Bleeding Controlled with Pressure -Treatment Response Procedure Tolerated Well [See Physician Procedure note for Specifics] Pain Scale: 0-10 Numeric [Pain] -Is Patient Pain Free? Yes Musculoskeletal: No Tenderness to Palpation of Joints or Extremities Lymphatic: No Cervical, Supraclavicular, or Inguinal Adenopathy Neurological: Cranial nerves II-XII grossly intact, Neuro grossly intact Psych/Mental Status: Normal Affect, Appropriate Debridement Note Post-Debridement Measurements/Treatment WC - Nurse 2 - General Ulcer CM Notes Start: 07/20/18 11:30 Freq: Status: Active Protocol: Activity Type Activity Date Activity User E-Sign Co-Sign Detail Recorded Client Recorded Date Recorded By Document 07/20/18 12:12 MW [id number] 07/20/18 12:15 MW 07/20/18 12:12 Wound Center Nurse 2 #1 LLE MEDIAL ULCER -Time 12:12 -Correct Patient Yes -Correct Side, Site, Position Yes -Correct Procedure Yes -Procedure Performed Yes -Type of Procedure Debridement -Clinical Debridement Subcutaneous -Post Debridement Size (cm) - Length 4.5 -Post Debridement Size (cm) - Width 2.0 -Post Debridement Size (cm) - Depth 0.3 -Total Square Cm 9.00 -Wound/Ulcer Outcome Not Healed -Ulcer Cleansing Rinsed/ Irrigated with Saline -Foul Odor after Cleansing No -Bioengineered Tissue No -Bleeding Controlled with Pressure -Treatment Response Procedure Tolerated Well Pain Scale: 0-10 Numeric Is Patient Pain Free? Yes Wound debrided: Eft lower leg wound Type of Debridement: Excisional debridement Anesthesia Used: 5% Lidocaine Gel Depth: Down to and including healthy tissue, in the subcutaneous layer Percentage of wound debrided: 100 Instrument Used: 7mm curette, #15 blade Tissue Removed: Slough Severity: Limited To Skin Breakdown Amount of bleeding with debridement: Mild Bleeding Controlled with: Compression and gauze Patient tolerated procedure well Assessment/Plan Cultures of the wound aerobic and anaerobic wound Active Problems (Last Reviewed 06/06/18 @ 13:17 by Yaima Daniel) MRSA (methicillin resistant Staphylococcus aureus) infection (Acute) Nonhealing ulcer of left lower extremity (Acute) Assessment: Traumatic ulcer left lower leg. PAD. PVD. Neuropathy bilateral lower legs Plan: Wash leg with Hibiclens. Continue using Santyl to the wound base nickel thickness cover with moistened gauze then regular gauze Mik and a single layer Tubigrip. Follow-up in 2 weeks. Call back with results of cultures
== END 2018-08-08 23:59 ==
LOC: WC 08:19
PROVIDERS: Family Provider Internal Medicine; PCP Internal Medicine; Referring Provider Nurse Practitioner; Visit Provider Internal Medicine
DX: I73.9 Peripheral vascular disease, unspecified (principal); Z86.14 Personal history of Methicillin resistant Staphylococcus aureus infection; G62.9 Polyneuropathy, unspecified; L97.821 Non-pressure chronic ulcer of other part of left lower leg limited to breakdown of skin
CPT/HCPCS: 11042

== ENCOUNTER 2018-09-07 10:15 | Outpatient (RCR) | payer MEDICARE, SELFPAY ==
[2018-08-09 00:27] VITALS: BP 123/56; PULSE 62; RESP 18; TEMP 35.8
[2018-08-09 10:37] VITALS: BP 128/79; PULSE 98; RESP 22; TEMP 36.3
--- NOTE | 2018-08-09 12:57 | HP.PCM_ITS ---
(1) Nonhealing ulcer of left lower extremity Status: Chronic Current Visit: Yes Code(s): L97.929 - Non-pressure chronic ulcer of unspecified part of left lower leg with unspecified severity (2) Peripheral arterial disease Status: Chronic Current Visit: Yes Code(s): I73.9 - Peripheral vascular disease, unspecified (3) Tobacco abuse Status: Chronic Current Visit: No Code(s): Z72.0 - Tobacco use (4) Venous insufficiency Status: Chronic Current Visit: Yes Code(s): I87.2 - Venous insufficiency (chronic) (peripheral) History of Present Illness Chief Complaint: Left lower leg ulcer for 3 months History of Wound: Ms. Narayanan is a 62yo well known to me and who has been seen here at the wound center by Heather Borges NP. She is now transferring care to [place]. She has been managed for left lower extremity ulcer. Denies any complaints at this time. Has been applying Santyl with some improvement noted per patient. Past Medical History Past Medical History: Chronic Problems (Last Reviewed 06/06/18 @ 13:17 by Yaima Daniel) Nonhealing ulcer of left lower extremity (Chronic) Ulcer of left lower extremity with fat layer exposed (Chronic) Venous insufficiency (Chronic) Tricompartmental knee joint arthritis (Chronic) Degeneration of lumbar intervertebral disc (Chronic) Asymptomatic postmenopausal status (Chronic) Impaired physical mobility (Chronic) stents in leg for neuropathy (Chronic) trigeminal neuralgia repair (Chronic) Anxiety (Chronic) Hypertension (Chronic) Dyspnea on exertion (Chronic) Peripheral arterial disease (Chronic) Peripheral neuropathy (Chronic) Localized swelling, mass or lump of neck (Chronic) Gallstone (Chronic) Goiter (Chronic) Tobacco abuse (Chronic) Surgical History: - Allergies/Adverse Reactions: Allergies amoxicillin Allergy (Unknown, Verified 05/25/18 15:57) Vomiting Home Medications: Ambulatory Orders Medication Instructions Recorded Tizanidine HCl [Zanaflex] 4 mg PO 4X/DAY 07/26/17 Aspirin [Aspirin, Baby] 81 mg PO DAILY@0800 07/27/17 Buprenorphine 1 patch TRANSDERMAL QWEEK #1 10/19/17 patch.tdwk lisinopril 5 mg tablet 10 mg PO BID tab 11/03/17 albuterol sulfate HFA 90 2 puff INHALATION Q6H 02/06/18 mcg/actuation aerosol inhaler gabapentin 600 mg tablet 400 mg PO .qid tab 02/06/18 tramadol 50 mg tablet 50 mg PO ONCE 02/06/18 duloxetine 30 mg capsule,delayed 60 mg PO DAILY #180 cap 03/01/18 release varenicline 0.5 mg (11)-1 mg (42) See Rx Instructions PO PER PKG DIR 06/06/18 tablets in a dose pack #53 tab trazodone 50 mg tablet 50 mg PO QHS PRN #60 tab 07/18/18 - Family History Maternal Family History: Family History (Last Reviewed 06/06/18 @ 13:17 by Yaima Daniel) Mother Heart disease Myocardial infarction Hypertension Father Cancer Heart Disease Paternal Family History: Family History (Last Reviewed 06/06/18 @ 13:17 by Yaima Daniel) Mother Heart disease Myocardial infarction Hypertension Father Cancer No pertinent history Smoking Status: Current every day smoker Review of Systems Constitutional: Denies: Anorexia, Chills, Malaise, Weakness Eyes: Denies: Blurred vision, Pain HEENT: Denies: Difficulty Hearing, Difficulty Swallowing Cardiovascular: Denies: Chest Pain, Chest Tightness Gastrointestinal: Denies: Abdominal Pain, Hematemesis, Vomiting Skin: Denies: Jaundice - Physical Exam Vital Signs Temp Pulse Resp BP 97.3 F L 98 22 H 128/79 H 08/09/18 10:37 08/09/18 10:37 08/09/18 10:37 08/09/18 10:37 General: Alert, Oriented x3, Cooperative, No apparent distress HEENT: Atraumatic Oral: Moist Mucosa Neck: Supple Lungs: Normal air movement Abdomen: Soft, Obese Extremities: No cyanosis, Edema Skin: Ulcer/ Wound Wound Measurements and Assessment WC - Nurse 1 - General Ulcer Measurement Start: 08/09/18 10:36 Freq: Status: Active Protocol: Activity Type Activity Date Activity User E-Sign Co-Sign Detail Recorded Client Recorded Date Recorded By Document 08/09/18 10:37 DL [id number] 08/09/18 10:49 DL 08/09/18 10:37 Wound Center Nurse 1 [Ulcer Assessment] #1 LLE MEDIAL ULCER -Current Size (cm) - Length 4.6 -Current Size (cm) - Width 2.2 -Current Size (cm) - Depth 0.4 -Total Square Cm 10.12 -Photo Taken No -Exudate Amt Medium (34-66%) -Exudate Type Serosanguineous -Wound Margin Distinct, Outline Attached -Granulation Amt None Present (0 %) -Slough/Fibrin Yes -Necrosis Amt Large (67-100%) -Necrotic Tissue Type Adherent Slough -Structure Exposed N/A -Texture (Pilar-wound Skin Appearance) Excoriation Localized Edema Scarring -Color (Pilar-wound Skin Appearance) Hemosiderin Staining Rubor -Temperature (Pilar-wound Skin No Abnormality Appearance) (Pt Warm) -Tenderness on Palpation (Pilar-wound No Skin Appearance) -Ulcer Cleansing Wound Cleanser -Foul Odor after Cleansing No -Anesthetic Used 4% Lidocaine Solution WC - Nurse 2 - General Ulcer CM Notes Start: 08/09/18 10:36 Freq: Status: Active Protocol: Activity Type Activity Date Activity User E-Sign Co-Sign Detail Recorded Client Recorded Date Recorded By Document 08/09/18 10:59 MW [id number] 08/09/18 11:03 MW 08/09/18 10:59 Wound Center Nurse 2 [Procedure/Treatment] -Time 11:00 -Correct Patient Yes -Correct Side, Site, Position Yes -Correct Procedure Yes -Procedure Performed Yes -Type of Procedure Debridement -Clinical Debridement Subcutaneous -Post Debridement Size (cm) - Length 4.6 -Post Debridement Size (cm) - Width 2.6 -Post Debridement Size (cm) - Depth 0.6 -Total Square Cm 11.96 -Wound/Ulcer Outcome Not Healed -Ulcer Cleansing Rinsed/ Irrigated with Saline -Foul Odor after Cleansing No -Bioengineered Tissue No -Bleeding Controlled with Pressure -Treatment Response Procedure Tolerated Well [See Physician Procedure note for Specifics] Pain Scale: 0-10 Numeric [Pain] -Is Patient Pain Free? Yes Musculoskeletal: No Muscle Wasting Neurological: Cranial nerves II-XII grossly intact Psych/Mental Status: Normal Affect Debridement Note Post-Debridement Measurements/Treatment - Nurse 2 - General Ulcer CM Notes Start: 08/09/18 10:36 Freq: Status: Active Protocol: Activity Type Activity Date Activity User E-Sign Co-Sign Detail Recorded Client Recorded Date Recorded By Document 08/09/18 10:59 MW [id number] 08/09/18 11:03 MW 08/09/18 10:59 Wound Center Nurse 2 #1 LLE MEDIAL ULCER -Time 11:00 -Correct Patient Yes -Correct Side, Site, Position Yes -Correct Procedure Yes -Procedure Performed Yes -Type of Procedure Debridement -Clinical Debridement Subcutaneous -Post Debridement Size (cm) - Length 4.6 -Post Debridement Size (cm) - Width 2.6 -Post Debridement Size (cm) - Depth 0.6 -Total Square Cm 11.96 -Wound/Ulcer Outcome Not Healed -Ulcer Cleansing Rinsed/ Irrigated with Saline -Foul Odor after Cleansing No -Bioengineered Tissue No -Bleeding Controlled with Pressure -Treatment Response Procedure Tolerated Well Pain Scale: 0-10 Numeric Is Patient Pain Free? Yes Wound debrided: Left lower extremity Wound Grade/Stage: Stage II Type of Debridement: Excisional debridement Anesthesia Used: 4% Lidocaine Solution Depth: Down to and including healthy tissue, in the subcutaneous layer Percentage of wound debrided: 100 Instrument Used: 7mm curette - Vitals Tissue Removed: Slough and devitalized tissue. Severity: Fat Layer Exposed Amount of bleeding with debridement: Mild Bleeding Controlled with: Pressure Patient tolerated procedure well Assessment/Plan Active Problems (Last Reviewed 06/06/18 @ 13:17 by Yaima Daniel) Nonhealing ulcer of left lower extremity (Chronic) Venous insufficiency (Chronic) Peripheral arterial disease (Chronic) Assessment: Left lower extremity ulcer. Peripheral arterial disease. Bilateral lower extremity edema. Plan: Debridement done as documented above. Procedure was well-tolerated. Continue Santyl daily with Adaptic over top. Double layer Tubigrip for edema management. Elevate lower extremities when seated and in bed. Avoid idle standing. Increased protein intake recommended. Exercise as tolerated. Advised to call with any questions or concerns. Follow-up in 1 week. This note was generated with [employer] dictation software. It may contain incorrect words, spelling, and punctuation that were not noted in checking the note before signing.
[2018-09-07 10:17] VITALS: BP 163/88; PULSE 78; RESP 16; TEMP 36.6
--- NOTE | 2018-09-07 11:58 | PN.PCM_ITS ---
(1) Infection of right eye Status: Acute Current Visit: Yes Code(s): H44.001 - Unspecified purulent endophthalmitis, right eye (2) Nonhealing ulcer of left lower extremity Status: Chronic Current Visit: Yes Code(s): L97.929 - Non-pressure chronic ulcer of unspecified part of left lower leg with unspecified severity (3) Peripheral arterial disease Status: Chronic Current Visit: Yes Code(s): I73.9 - Peripheral vascular disease, unspecified (4) Venous insufficiency Status: Chronic Current Visit: Yes Code(s): I87.2 - Venous insufficiency (chronic) (peripheral) (5) MRSA (methicillin resistant Staphylococcus aureus) infection Status: Acute Current Visit: No Code(s): A49.02 - Methicillin resistant Staphylococcus aureus infection, unspecified site (6) Traumatic ulcer of left lower leg with fat layer exposed Status: Acute Current Visit: No Code(s): L97.922 - Non-pressure chronic ulcer of unspecified part of left lower leg with fat layer exposed Type of Wound Chief Complaint: Left lower leg ulcer for 3 months History of Wound: Ms. Narayanan is a 62yo well known to me and who has been seen here at the wound center by Heather Borges NP. She has been managed for left lower extremity wound. The wound appears bigger and deeper at this point the slough is better we will stop using Santyl and try Huma. Noticed an odor to the ulcer and cultures will be obtained. Complaining of a right eye infection also that is watery swollen and crusts at night. Denies any complaints at this time. Has been applying Santyl with some improvement noted per patient. Progress of Wound: Santyl which seems to be helping with the debridement somewhat we had to score today but did get a lot of debridement out. Recultured her because she was growing MRSA and some other bizarre bacteria's. Large amounts of yellow slough was cleaned out of the wound. Will apply for skin substitute for her and continue with the Santyl to we can get it cleaned. Still very dark and erythematous around the edge of the wound the ulcer is improved and but still deep and bigger will try Huma now and stop Santyl. Poor healing due to her peripheral vascular disease and arterial disease we will get studies done also - Physical Exam Vital Signs Temp Pulse Resp BP 97.8 F 78 16 163/88 H 09/07/18 10:17 09/07/18 10:17 09/07/18 10:17 09/07/18 10:17 General: Oriented x3, Cooperative, Well developed HEENT: Atraumatic, PERRLA Oral: Moist Mucosa Neck: Supple, No JVD Lungs: Clear to auscultation, Normal air movement Cardiovascular: Regular rate, Regular Rhythm Abdomen: Bowel Sounds Present, Soft, Non Tender, No Hepato-splenomegaly Extremities: No clubbing, No edema, - - Left lower leg wound Wound Measurements and Assessment WC - Nurse 1 - General Ulcer Measurement Start: 08/09/18 10:36 Freq: Status: Active Protocol: Activity Type Activity Date Activity User E-Sign Co-Sign Detail Recorded Client Recorded Date Recorded By Document 09/07/18 10:17 [id number] 09/07/18 10:23 09/07/18 10:17 Wound Center Nurse 1 [Ulcer Assessment] #1 LLE MEDIAL ULCER -Combined with other wound No -Current Size (cm) - Length 5 -Current Size (cm) - Width 3.2 -Current Size (cm) - Depth 0.2 -Total Square Cm 16.0 -Date of Last Picture (Recall this 09/07/18 field) -Photo Taken Yes -Epithelialization None Present -Tunneling No -Undermining/Tunneling No -Circular Undermining No -Exudate Amt Large (67-100%) -Exudate Type Yellow/Green -Wound Margin Distinct, Outline Attached -Granulation Amt Small (1-33%) -Granulation Quality Pale [place] -Slough/Fibrin Yes -Necrosis Amt Medium (34-66%) -Necrotic Tissue Type Adherent Slough -Structure Exposed None/Limited to Skin Breakdown -Texture (Pilar-wound Skin Appearance) Assessed Localized Edema -Moisture (Pilar-wound Skin Appearance No Abnormality ) Assessed -Color (Pilar-wound Skin Appearance) Assessed Erythema Hemosiderin Staining -Temperature (Pilar-wound Skin No Abnormality Appearance) (Pt Warm) -Tenderness on Palpation (Pilar-wound Yes Skin Appearance) -Ulcer Cleansing Rinsed/ Irrigated with Saline -Foul Odor after Cleansing No -Anesthetic Used 4% Lidocaine Solution [Edema Assessment] -Lower Limb Edema Present Yes -Left Calf (cm) 37.5 -Left Ankle (cm) 22.2 WC - Nurse 2 - General Ulcer CM Notes Start: 08/09/18 10:36 Freq: Status: Active Protocol: Activity Type Activity Date Activity User E-Sign Co-Sign Detail Recorded Client Recorded Date Recorded By Document 09/07/18 10:38 MW [id number] 09/07/18 10:48 MW 09/07/18 10:38 Wound Center Nurse 2 [Procedure/Treatment] #1 LLE MEDIAL ULCER -Time 10:39 -Correct Patient Yes -Correct Side, Site, Position Yes -Correct Procedure Yes -Procedure Performed Yes -Type of Procedure Debridement -Clinical Debridement Subcutaneous -Post Debridement Size (cm) - Length 5.0 -Post Debridement Size (cm) - Width 3.0 -Post Debridement Size (cm) - Depth 0.4 -Total Square Cm 15.00 -Wound/Ulcer Outcome Not Healed -Ulcer Cleansing Rinsed/ Irrigated with Saline -Foul Odor after Cleansing No -Bioengineered Tissue No -Bleeding Controlled with Pressure -Offloading No -Treatment Response Procedure Tolerated Well [See Physician Procedure note for Specifics] Pain Scale: 0-10 Numeric [Pain] -Is Patient Pain Free? Yes Musculoskeletal: No Tenderness to Palpation of Joints or Extremities Lymphatic: No Cervical, Supraclavicular, or Inguinal Adenopathy Neurological: Cranial nerves II-XII grossly intact, Neuro grossly intact Psych/Mental Status: Normal Affect, Appropriate Debridement Note Post-Debridement Measurements/Treatment WC - Nurse 2 - General Ulcer CM Notes Start: 08/09/18 10:36 Freq: Status: Active Protocol: Activity Type Activity Date Activity User E-Sign Co-Sign Detail Recorded Client Recorded Date Recorded By Document 08/09/18 10:59 MW [id number] 08/09/18 11:03 MW Document 09/07/18 10:38 MW [id number] 09/07/18 10:48 MW 08/09/18 09/07/18 10:59 10:38 Wound Center Nurse 2 #1 LLE MEDIAL ULCER -Time 11:00 10:39 -Correct Patient Yes Yes -Correct Side, Site, Position Yes Yes -Correct Procedure Yes Yes -Procedure Performed Yes Yes -Type of Procedure Debridement Debridement -Clinical Debridement Subcutaneous Subcutaneous -Post Debridement Size (cm) - Length 4.6 5.0 -Post Debridement Size (cm) - Width 2.6 3.0 -Post Debridement Size (cm) - Depth 0.6 0.4 -Total Square Cm 11.96 15.00 -Wound/Ulcer Outcome Not Healed Not Healed -Ulcer Cleansing Rinsed/ Rinsed/ Irrigated with Irrigated with Saline Saline -Foul Odor after Cleansing No No -Bioengineered Tissue No No -Bleeding Controlled with Pressure Pressure -Offloading No -Treatment Response Procedure Procedure Tolerated Well Tolerated Well Pain Scale: 0-10 Numeric Is Patient Pain Free? Yes Yes Wound debrided: Lower leg wound Type of Debridement: Excisional debridement Anesthesia Used: 5% Lidocaine Gel Depth: Down to and including healthy tissue, in the subcutaneous layer Percentage of wound debrided: 100 Instrument Used: 7mm curette Tissue Removed: Slough and fibrin Severity: Limited To Skin Breakdown Amount of bleeding with debridement: Mild Bleeding Controlled with: Compression and gauze Patient tolerated procedure well Assessment/Plan Cultures to be done in a pre-albumin Active Problems (Last Reviewed 08/15/18 @ 13:38 by Juli Quarles) Nonhealing ulcer of left lower extremity (Chronic) Infection of right eye (Acute) Venous insufficiency (Chronic) Peripheral arterial disease (Chronic) Assessment: Left lower extremity ulcer. Peripheral arterial disease. Bilateral lower extremity edema. Plan: Debridement done as documented above. Procedure was well-tolerated. Sta rt Huma covered with Adaptic gauze and dressing daily. Double layer Tubigrip for edema management. Elevate lower extremities when seated and in bed. Avoid idle standing. Increased protein intake recommended. Exercise as tolerated. Will get arterial brachial and venous studies. Will start ciprofloxacin 500 mg twice daily times 14 days. Metronidazole 250 mg 3 times daily times 14 days. Erythromycin ophthalmic ointment 1 ribbon to right lower lid 3 times daily for 5 days if not improved see ophthalmology. Follow-up in 1 week. Advised to call with any questions or concerns. Follow-up in 1 week. This note was generated with [employer] software. It may contain incorrect words, spelling, and punctuation that were not noted in checking the note before signing.
[2018-09-07 15:09] LABS: Prealbumin 17.7 mg/dL (20.0-40.0)
== END 2018-09-07 23:59 ==
LOC: WC 10:15
PROVIDERS: Family Provider Internal Medicine; PCP Internal Medicine; Referring Provider Nurse Practitioner; Visit Provider Nurse Practitioner
DX: I73.9 Peripheral vascular disease, unspecified (principal); I87.2 Venous insufficiency (chronic) (peripheral); G62.9 Polyneuropathy, unspecified; Z72.0 Tobacco use; Z86.14 Personal history of Methicillin resistant Staphylococcus aureus infection; L97.822 Non-pressure chronic ulcer of other part of left lower leg with fat layer exposed; R60.0 Localized edema; I10 Essential (primary) hypertension; Z79.899 Other long term (current) drug therapy; Z79.82 Long term (current) use of aspirin
CPT/HCPCS: 11042; 84134; 87070; 87075; 87076; 87077; 87186; 87205

== ENCOUNTER 2018-10-05 11:00 | Outpatient (RCR) | payer MEDICARE, SELFPAY ==
[2018-09-08 00:30] VITALS: BP 163/88; PULSE 78; RESP 16; TEMP 36.6; BMI 35.4
[2018-09-21 11:25] VITALS: BP 186/78; PULSE 71; RESP 18; TEMP 37.4; BMI 35.4
--- NOTE | 2018-09-21 12:40 | PCM.WC.PN ---
(1) MRSA (methicillin resistant Staphylococcus aureus) infection Status: Acute Current Visit: Yes Code(s): A49.02 - Methicillin resistant Staphylococcus aureus infection, unspecified site (2) Traumatic ulcer of left lower leg with fat layer exposed Status: Acute Current Visit: Yes Code(s): L97.922 - Non-pressure chronic ulcer of unspecified part of left lower leg with fat layer exposed (3) Anxiety Status: Chronic Current Visit: Yes Code(s): F41.9 - Anxiety disorder, unspecified (4) Nonhealing ulcer of left lower extremity Status: Chronic Current Visit: Yes Code(s): L97.929 - Non-pressure chronic ulcer of unspecified part of left lower leg with unspecified severity Type of Wound Chief Complaint: Left lower leg ulcer for 3 months History of Wound: Ms. Narayanan is a 62yo well known to me and who has been seen here at the wound center by Heather Borges NP. She has been managed for left lower extremity wound. The wound appears bigger and deeper at this point the slough is better we will stop using Santyl and try Huma. Noticed an odor to the ulcer and cultures will be obtained. Complaining of a right eye infection also that is watery swollen and crusts at night. Denies any complaints at this time. Has been applying Santyl with some improvement noted per patient. Progress of Wound: Based still is some yellow discharge but lifts out easily patient was approved for puraply #1 was applied today. Patient tolerated well the wound is smaller than it measured 2 weeks ago patient has a compliance problem. Her eye is completely healed - Physical Exam Vital Signs Temp Pulse Resp BP 99.3 F H 71 18 186/78 H 09/21/18 11:25 09/21/18 11:25 09/21/18 11:25 09/21/18 11:25 General: Oriented x3, Cooperative, Well developed HEENT: Atraumatic, PERRLA Oral: Moist Mucosa Neck: Supple, No JVD Lungs: Clear to auscultation, Normal air movement Cardiovascular: Regular rate, Regular Rhythm Abdomen: Bowel Sounds Present, Soft, Non Tender, No Hepato-splenomegaly Extremities: No clubbing, No edema, - - Open ulcer left lower inner leg Skin: Ulcer/ Wound Wound Measurements and Assessment WC - Nurse 1 - General Ulcer Measurement Start: 12/14/18 11:19 Freq: Status: Active Protocol: Activity Type Activity Date Activity User E-Sign Co-Sign Detail Recorded Client Recorded Date Recorded By Document 09/21/18 11:25 CS [id number] 09/21/18 11:27 CS 09/21/18 11:25 Wound Center Nurse 1 [Ulcer Assessment] #1 LLE MEDIAL ULCER -Combined with other wound No -Current Size (cm) - Length 4.8 -Current Size (cm) - Width 3.2 -Current Size (cm) - Depth 0.2 -Total Square Cm 15.36 -Photo Taken No -Epithelialization None Present -Tunneling No -Undermining/Tunneling No -Circular Undermining No -Exudate Amt Medium (34-66%) -Exudate Type Serosanguineous -Wound Margin Distinct, Outline Attached -Granulation Amt None Present (0 %) -Granulation Quality N/A -Slough/Fibrin Yes -Necrosis Amt Medium (34-66%) -Necrotic Tissue Type Adherent Slough -Structure Exposed None/Limited to Skin Breakdown -Texture (Pilar-wound Skin Appearance) Localized Edema -Moisture (Pilar-wound Skin Appearance Assessed ) -Color (Pilar-wound Skin Appearance) Assessed Erythema -Temperature (Pilar-wound Skin No Abnormality Appearance) (Pt Warm) -Tenderness on Palpation (Pilar-wound Yes Skin Appearance) -Ulcer Cleansing Rinsed/ Irrigated with Saline -Foul Odor after Cleansing No -Anesthetic Used 4% Lidocaine Solution [Edema Assessment] -Lower Limb Edema Present Yes -Right Calf (cm) 36 -Right Ankle (cm) 24 -Left Calf (cm) 37 -Left Ankle (cm) 21.5 WC - Nurse 2 - General Ulcer CM Notes Start: 09/21/18 11:19 Freq: Status: Active Protocol: Activity Type Activity Date Activity User E-Sign Co-Sign Detail Recorded Client Recorded Date Recorded By Document 09/21/18 11:51 MW [id number] 09/21/18 11:55 MW 09/21/18 11:51 Wound Center Nurse 2 [Procedure/Treatment] #1 LLE MEDIAL ULCER -Time 11:51 -Correct Patient Yes -Correct Side, Site, Position Yes -Correct Procedure Yes -Procedure Performed Yes -Type of Procedure Debridement -Clinical Debridement Subcutaneous -Post Debridement Size (cm) - Length 4.8 -Post Debridement Size (cm) - Width 2.5 -Post Debridement Size (cm) - Depth 0.4 -Total Square Cm 12.00 -Wound/Ulcer Outcome Not Healed -Ulcer Cleansing Rinsed/ Irrigated with Saline -Foul Odor after Cleansing No -Bioengineered Tissue Yes -Type of bioengineered Tissue [id number] -Expiration Date 01/11/21 -Product Lot Number [id number] -Percent Used 100 -Saline Lot Number [id number] -Bleeding Controlled with Pressure -Offloading No -Treatment Response Procedure Tolerated Well [See Physician Procedure note for Specifics] Pain Scale: 0-10 Numeric [Pain] -Is Patient Pain Free? Yes Musculoskeletal: No Tenderness to Palpation of Joints or Extremities Lymphatic: No Cervical, Supraclavicular, or Inguinal Adenopathy Neurological: Cranial nerves II-XII grossly intact, Neuro grossly intact Psych/Mental Status: Normal Affect, Appropriate Debridement Note Post-Debridement Measurements/Treatment WC - Nurse 2 - General Ulcer CM Notes Start: 09/21/18 11:19 Freq: Status: Active Protocol: Activity Type Activity Date Activity User E-Sign Co-Sign Detail Recorded Client Recorded Date Recorded By Document 09/21/18 11:51 MW [id number] 09/21/18 11:55 MW 09/21/18 11:51 Wound Center Nurse 2 #1 LLE MEDIAL ULCER -Time 11:51 -Correct Patient Yes -Correct Side, Site, Position Yes -Correct Procedure Yes -Procedure Performed Yes -Type of Procedure Debridement -Clinical Debridement Subcutaneous -Post Debridement Size (cm) - Length 4.8 -Post Debridement Size (cm) - Width 2.5 -Post Debridement Size (cm) - Depth 0.4 -Total Square Cm 12.00 -Wound/Ulcer Outcome Not Healed -Ulcer Cleansing Rinsed/ Irrigated with Saline -Foul Odor after Cleansing No -Bioengineered Tissue Yes -Type of bioengineered Tissue [id number] -Expiration Date 01/11/21 -Product Lot Number [id number] -Percent Used 100 -Saline Lot Number [id number] -Bleeding Controlled with Pressure -Offloading No -Treatment Response Procedure Tolerated Well Pain Scale: 0-10 Numeric Is Patient Pain Free? Yes Wound debrided: Left lower leg wound Type of Debridement: Excisional debridement Anesthesia Used: 5% Lidocaine Gel Depth: Down to and including healthy tissue, in the subcutaneous layer, to muscle Percentage of wound debrided: 100 Instrument Used: 5mm curette Tissue Removed: Slough and fibrin Severity: Fat Layer Exposed Amount of bleeding with debridement: Mild Bleeding Controlled with: Compression and gauze Patient tolerated procedure well Assessment/Plan Active Problems (Last Reviewed 08/15/18 @ 13:38 by Juli Quarles) Traumatic ulcer of left lower leg with fat layer exposed (Acute) MRSA (methicillin resistant Staphylococcus aureus) infection (Acute) Nonhealing ulcer of left lower extremity (Chronic) Anxiety (Chronic) Assessment: Left lower extremity ulcer. Peripheral arterial disease. Bilateral lower extremity edema. MRSA infection finishing antibiotics now Plan: Debridement done as documented above. Procedure was well-tolerated. 1 puraply applied to the area if comes off she is to go to a Promogran dressing patient is to leave dressing alone and for 1 week and follow-up in 1 week . Exercise as tolerated. Advised to call with any questions or concerns. Follow-up in 1 week. This note was generated with [employer] dictation software. It may contain incorrect words, spelling, and punctuation that were not noted in checking the note before signing.
--- NOTE | 2018-09-21 12:44 | PN.PCM_ITS ---
(1) MRSA (methicillin resistant Staphylococcus aureus) infection Status: Acute Current Visit: Yes Code(s): A49.02 - Methicillin resistant Staphylococcus aureus infection, unspecified site (2) Traumatic ulcer of left lower leg with fat layer exposed Status: Acute Current Visit: Yes Code(s): L97.922 - Non-pressure chronic ulcer of unspecified part of left lower leg with fat layer exposed (3) Anxiety Status: Chronic Current Visit: Yes Code(s): F41.9 - Anxiety disorder, unspecified (4) Nonhealing ulcer of left lower extremity Status: Chronic Current Visit: Yes Code(s): L97.929 - Non-pressure chronic ulcer of unspecified part of left lower leg with unspecified severity Type of Wound Chief Complaint: Left lower leg ulcer for 3 months History of Wound: Ms. Narayanan is a 62yo well known to me and who has been seen here at the wound center by Heather Borges NP. She has been managed for left lower extremity wound. The wound appears bigger and deeper at this point the slough is better we will stop using Santyl and try Huma. Noticed an odor to the ulcer and cultures will be obtained. Complaining of a right eye infection also that is watery swollen and crusts at night. Denies any complaints at this time. Has been applying Santyl with some improvement noted per patient. Progress of Wound: Based still is some yellow discharge but lifts out easily patient was approved for puraply #1 was applied today. Patient tolerated well the wound is smaller than it measured 2 weeks ago patient has a compliance problem. Her eye is completely healed - Physical Exam Vital Signs Temp Pulse Resp BP 99.3 F H 71 18 186/78 H 09/21/18 11:25 09/21/18 11:25 09/21/18 11:25 09/21/18 11:25 General: Oriented x3, Cooperative, Well developed HEENT: Atraumatic, PERRLA Oral: Moist Mucosa Neck: Supple, No JVD Lungs: Clear to auscultation, Normal air movement Cardiovascular: Regular rate, Regular Rhythm Abdomen: Bowel Sounds Present, Soft, Non Tender, No Hepato-splenomegaly Extremities: No clubbing, No edema, - - Open ulcer left lower inner leg Skin: Ulcer/ Wound Wound Measurements and Assessment WC - Nurse 1 - General Ulcer Measurement Start: 12/14/18 11:19 Freq: Status: Active Protocol: Activity Type Activity Date Activity User E-Sign Co-Sign Detail Recorded Client Recorded Date Recorded By Document 09/21/18 11:25 CS [id number] 09/21/18 11:27 CS 09/21/18 11:25 Wound Center Nurse 1 [Ulcer Assessment] #1 LLE MEDIAL ULCER -Combined with other wound No -Current Size (cm) - Length 4.8 -Current Size (cm) - Width 3.2 -Current Size (cm) - Depth 0.2 -Total Square Cm 15.36 -Photo Taken No -Epithelialization None Present -Tunneling No -Undermining/Tunneling No -Circular Undermining No -Exudate Amt Medium (34-66%) -Exudate Type Serosanguineous -Wound Margin Distinct, Outline Attached -Granulation Amt None Present (0 %) -Granulation Quality N/A -Slough/Fibrin Yes -Necrosis Amt Medium (34-66%) -Necrotic Tissue Type Adherent Slough -Structure Exposed None/Limited to Skin Breakdown -Texture (Pilar-wound Skin Appearance) Localized Edema -Moisture (Pilar-wound Skin Appearance Assessed ) -Color (Pilar-wound Skin Appearance) Assessed Erythema -Temperature (Pilar-wound Skin No Abnormality Appearance) (Pt Warm) -Tenderness on Palpation (Pilar-wound Yes Skin Appearance) -Ulcer Cleansing Rinsed/ Irrigated with Saline -Foul Odor after Cleansing No -Anesthetic Used 4% Lidocaine Solution [Edema Assessment] -Lower Limb Edema Present Yes -Right Calf (cm) 36 -Right Ankle (cm) 24 -Left Calf (cm) 37 -Left Ankle (cm) 21.5 WC - Nurse 2 - General Ulcer CM Notes Start: 09/21/18 11:19 Freq: Status: Active Protocol: Activity Type Activity Date Activity User E-Sign Co-Sign Detail Recorded Client Recorded Date Recorded By Document 09/21/18 11:51 MW [id number] 09/21/18 11:55 MW 09/21/18 11:51 Wound Center Nurse 2 [Procedure/Treatment] #1 LLE MEDIAL ULCER -Time 11:51 -Correct Patient Yes -Correct Side, Site, Position Yes -Correct Procedure Yes -Procedure Performed Yes -Type of Procedure Debridement -Clinical Debridement Subcutaneous -Post Debridement Size (cm) - Length 4.8 -Post Debridement Size (cm) - Width 2.5 -Post Debridement Size (cm) - Depth 0.4 -Total Square Cm 12.00 -Wound/Ulcer Outcome Not Healed -Ulcer Cleansing Rinsed/ Irrigated with Saline -Foul Odor after Cleansing No -Bioengineered Tissue Yes -Type of bioengineered Tissue [id number] -Expiration Date 01/11/21 -Product Lot Number [id number] -Percent Used 100 -Saline Lot Number [id number] -Bleeding Controlled with Pressure -Offloading No -Treatment Response Procedure Tolerated Well [See Physician Procedure note for Specifics] Pain Scale: 0-10 Numeric [Pain] -Is Patient Pain Free? Yes Musculoskeletal: No Tenderness to Palpation of Joints or Extremities Lymphatic: No Cervical, Supraclavicular, or Inguinal Adenopathy Neurological: Cranial nerves II-XII grossly intact, Neuro grossly intact Psych/Mental Status: Normal Affect, Appropriate Debridement Note Post-Debridement Measurements/Treatment WC - Nurse 2 - General Ulcer CM Notes Start: 09/21/18 11:19 Freq: Status: Active Protocol: Activity Type Activity Date Activity User E-Sign Co-Sign Detail Recorded Client Recorded Date Recorded By Document 09/21/18 11:51 MW [id number] 09/21/18 11:55 MW 09/21/18 11:51 Wound Center Nurse 2 #1 LLE MEDIAL ULCER -Time 11:51 -Correct Patient Yes -Correct Side, Site, Position Yes -Correct Procedure Yes -Procedure Performed Yes -Type of Procedure Debridement -Clinical Debridement Subcutaneous -Post Debridement Size (cm) - Length 4.8 -Post Debridement Size (cm) - Width 2.5 -Post Debridement Size (cm) - Depth 0.4 -Total Square Cm 12.00 -Wound/Ulcer Outcome Not Healed -Ulcer Cleansing Rinsed/ Irrigated with Saline -Foul Odor after Cleansing No -Bioengineered Tissue Yes -Type of bioengineered Tissue [id number] -Expiration Date 01/11/21 -Product Lot Number [id number] -Percent Used 100 -Saline Lot Number [id number] -Bleeding Controlled with Pressure -Offloading No -Treatment Response Procedure Tolerated Well Pain Scale: 0-10 Numeric Is Patient Pain Free? Yes Wound debrided: Left lower leg wound Type of Debridement: Excisional debridement Anesthesia Used: 5% Lidocaine Gel Depth: Down to and including healthy tissue, in the subcutaneous layer, to muscle Percentage of wound debrided: 100 Instrument Used: 5mm curette Tissue Removed: Slough and fibrin Severity: Fat Layer Exposed Amount of bleeding with debridement: Mild Bleeding Controlled with: Compression and gauze Patient tolerated procedure well Assessment/Plan Active Problems (Last Reviewed 08/15/18 @ 13:38 by Juli Quarles) Traumatic ulcer of left lower leg with fat layer exposed (Acute) MRSA (methicillin resistant Staphylococcus aureus) infection (Acute) Nonhealing ulcer of left lower extremity (Chronic) Anxiety (Chronic) Assessment: Left lower extremity ulcer. Peripheral arterial disease. Bilateral lower extremity edema. MRSA infection finishing antibiotics now Plan: Debridement done as documented above. Procedure was well-tolerated. 1 puraply applied to the area if comes off she is to go to a Promogran dressing patient is to leave dressing alone and for 1 week and follow-up in 1 week . Exercise as tolerated. Advised to call with any questions or concerns. Follow- up in 1 week. This note was generated with [employer] dictation software. It may contain incorrect words, spelling, and punctuation that were not noted in checking the note before signing.
[2018-09-28 11:04] VITALS: BP 119/73; PULSE 95; RESP 18; TEMP 36.8; BMI 35.4
--- NOTE | 2018-09-28 11:26 | PCM.WC.PN ---
(1) MRSA (methicillin resistant Staphylococcus aureus) infection Status: Acute Current Visit: Yes Code(s): A49.02 - Methicillin resistant Staphylococcus aureus infection, unspecified site (2) Traumatic ulcer of left lower leg with fat layer exposed Status: Acute Current Visit: Yes Code(s): L97.922 - Non-pressure chronic ulcer of unspecified part of left lower leg with fat layer exposed (3) Anxiety Status: Chronic Current Visit: Yes Code(s): F41.9 - Anxiety disorder, unspecified (4) Nonhealing ulcer of left lower extremity Status: Chronic Current Visit: Yes Code(s): L97.929 - Non-pressure chronic ulcer of unspecified part of left lower leg with unspecified severity Type of Wound Chief Complaint: Left lower leg ulcer for 3 months History of Wound: Ms. Narayanan is a 62yo well known to me and who has been seen here at the wound center by Heather Borges NP. She has been managed for left lower extremity wound. The wound appears bigger and deeper at this point the slough is better we will stop using Santyl and try Huma. Noticed an odor to the ulcer and cultures will be obtained. Complaining of a right eye infection also that is watery swollen and crusts at night. Denies any complaints at this time. Has been applying Santyl with some improvement noted per patient. Progress of Wound: Based still is some yellow discharge but lifts out easily patient was approved for puraply #2 was applied today. Patient complained of some swelling in the upper leg above the ulcer will again culture wound to make sure we are on the right track area around the wound is good supple skin. Patient tolerated well the wound is smaller than it measured 2 weeks ago patient has a compliance problem. - Physical Exam Vital Signs Temp Pulse Resp BP 98.2 F 95 18 119/73 09/28/18 11:04 09/28/18 11:04 09/28/18 11:04 09/28/18 11:04 General: Oriented x3, Cooperative, Well developed HEENT: Atraumatic, PERRLA Oral: Moist Mucosa Neck: Supple, No JVD Lungs: Clear to auscultation, Normal air movement Cardiovascular: Regular rate, Regular Rhythm Abdomen: Bowel Sounds Present, Soft, Non Tender, No Hepato-splenomegaly Extremities: No clubbing, No edema Wound Measurements and Assessment WC - Nurse 1 - General Ulcer Measurement Start: 12/14/18 11:19 Freq: Status: Active Protocol: Activity Type Activity Date Activity User E-Sign Co-Sign Detail Recorded Client Recorded Date Recorded By Document 09/28/18 11:04 [facility] [id number] 09/28/18 11:10 [facility] 09/28/18 11:04 Wound Center Nurse 1 [Ulcer Assessment] #1 LLE MEDIAL ULCER -Combined with other wound No -Current Size (cm) - Length 5.1 -Current Size (cm) - Width 2.1 -Current Size (cm) - Depth 0.3 -Total Square Cm 10.71 -Photo Taken No -Tunneling No -Undermining/Tunneling No -Circular Undermining No -Exudate Amt Medium (34-66%) -Exudate Type Serosanguineous -Wound Margin Thickened -Granulation Amt Small (1-33%) -Granulation Quality [place] -Slough/Fibrin Yes -Necrosis Amt Large (67-100%) -Necrotic Tissue Type Adherent Slough -Structure Exposed N/A -Texture (Pilar-wound Skin Appearance) Scarring Rash -Moisture (Pilar-wound Skin Appearance Assessed ) -Color (Pilar-wound Skin Appearance) Assessed -Temperature (Pilar-wound Skin No Abnormality Appearance) (Pt Warm) -Tenderness on Palpation (Pilar-wound No Skin Appearance) -Anesthetic Used 5% Lidocaine Gel [Edema Assessment] -Lower Limb Edema Present Yes -Left Calf (cm) 40.1 -Left Ankle (cm) 20 WC - Nurse 2 - General Ulcer CM Notes Start: 09/21/18 11:19 Freq: Status: Active Protocol: Activity Type Activity Date Activity User E-Sign Co-Sign Detail Recorded Client Recorded Date Recorded By Document 09/28/18 11:21 [id number] 09/28/18 11:23 09/28/18 11:21 Wound Center Nurse 2 [Procedure/Treatment] #1 LLE MEDIAL ULCER -Time 11:21 -Correct Patient Yes -Correct Side, Site, Position Yes -Correct Procedure Yes -Procedure Performed Yes -Type of Procedure Debridement -Clinical Debridement Subcutaneous -Post Debridement Size (cm) - Length 5.0 -Post Debridement Size (cm) - Width 2.3 -Post Debridement Size (cm) - Depth 0.3 -Total Square Cm 11.50 -Wound/Ulcer Outcome Not Healed -Ulcer Cleansing Rinsed/ Irrigated with Saline -Foul Odor after Cleansing No -Bioengineered Tissue Yes -Type of bioengineered Tissue [id number] -Expiration Date 01/11/21 -Product Lot Number [id number] -Percent Used 100 -Saline Lot Number [id number] -Bleeding Controlled with Pressure -Offloading No -Treatment Response Procedure Tolerated Well [See Physician Procedure note for Specifics] Pain Scale: 0-10 Numeric [Pain] -Is Patient Pain Free? Yes Musculoskeletal: No Tenderness to Palpation of Joints or Extremities Lymphatic: No Cervical, Supraclavicular, or Inguinal Adenopathy Neurological: Cranial nerves II-XII grossly intact, Neuro grossly intact Psych/Mental Status: Normal Affect, Appropriate, Alert and oriented to time, place, person, mood and affect Debridement Note Post-Debridement Measurements/Treatment WC - Nurse 2 - General Ulcer CM Notes Start: 09/21/18 11:19 Freq: Status: Active Protocol: Activity Type Activity Date Activity User E-Sign Co-Sign Detail Recorded Client Recorded Date Recorded By Document 09/21/18 11:51 MW [id number] 09/21/18 11:55 MW Document 09/28/18 11:21 MW [id number] 09/28/18 11:23 MW 09/21/18 09/28/18 11:51 11:21 Wound Center Nurse 2 #1 LLE MEDIAL ULCER -Time 11:51 11:21 -Correct Patient Yes Yes -Correct Side, Site, Position Yes Yes -Correct Procedure Yes Yes -Procedure Performed Yes Yes -Type of Procedure Debridement Debridement -Clinical Debridement Subcutaneous Subcutaneous -Post Debridement Size (cm) - Length 4.8 5.0 -Post Debridement Size (cm) - Width 2.5 2.3 -Post Debridement Size (cm) - Depth 0.4 0.3 -Total Square Cm 12.00 11.50 -Wound/Ulcer Outcome Not Healed Not Healed -Ulcer Cleansing Rinsed/ Rinsed/ Irrigated with Irrigated with Saline Saline -Foul Odor after Cleansing No No -Bioengineered Tissue Yes Yes -Type of bioengineered Tissue [id number] -Expiration Date 01/11/21 01/11/21 -Product Lot Number [id number] -Percent Used 100 100 -Saline Lot Number [id number] -Bleeding Controlled with Pressure Pressure -Offloading No No -Treatment Response Procedure Procedure Tolerated Well Tolerated Well Pain Scale: 0-10 Numeric Is Patient Pain Free? Yes Yes Wound debrided: Left medial lower leg Type of Debridement: Excisional debridement Anesthesia Used: 5% Lidocaine Gel Depth: Down to and including healthy tissue, in the subcutaneous layer Instrument Used: 7mm curette Tissue Removed: Slough and fibrin Severity: Limited To Skin Breakdown Amount of bleeding with debridement: Mild Bleeding Controlled with: Compression and gauze Assessment/Plan Ulcers to the ulcer aerobic and anaerobic Active Problems (Last Reviewed 08/15/18 @ 13:38 by Juli Quarles) Traumatic ulcer of left lower leg with fat layer exposed (Acute) MRSA (methicillin resistant Staphylococcus aureus) infection (Acute) Nonhealing ulcer of left lower extremity (Chronic) Anxiety (Chronic) Assessment: Left lower extremity ulcer. Peripheral arterial disease. Bilateral lower extremity edema. MRSA infection finishing antibiotics now Plan: Debridement done as documented above. Procedure was well-tolerated. #2 puraply applied to the area if comes off she is to go to a Promogran dressing patient is to leave dressing alone and for 1 week and follow-up in 1 week . Exercise as tolerated. Advised to call with any questions or concerns. Follow-up in 1 week. This note was generated with [employer] dictation software. It may contain incorrect words, spelling, and punctuation that were not noted in checking the note before signing.
--- NOTE | 2018-09-28 11:29 | PN.PCM_ITS ---
(1) MRSA (methicillin resistant Staphylococcus aureus) infection Status: Acute Current Visit: Yes Code(s): A49.02 - Methicillin resistant Staphylococcus aureus infection, unspecified site (2) Traumatic ulcer of left lower leg with fat layer exposed Status: Acute Current Visit: Yes Code(s): L97.922 - Non-pressure chronic ulcer of unspecified part of left lower leg with fat layer exposed (3) Anxiety Status: Chronic Current Visit: Yes Code(s): F41.9 - Anxiety disorder, unspecified (4) Nonhealing ulcer of left lower extremity Status: Chronic Current Visit: Yes Code(s): L97.929 - Non-pressure chronic ulcer of unspecified part of left lower leg with unspecified severity Type of Wound Chief Complaint: Left lower leg ulcer for 3 months History of Wound: Ms. Narayanan is a 62yo well known to me and who has been seen here at the wound center by Heather Borges NP. She has been managed for left lower extremity wound. The wound appears bigger and deeper at this point the slough is better we will stop using Santyl and try Huma. Noticed an odor to the ulcer and cultures will be obtained. Complaining of a right eye infection also that is watery swollen and crusts at night. Denies any complaints at this time. Has been applying Santyl with some improvement noted per patient. Progress of Wound: Based still is some yellow discharge but lifts out easily patient was approved for puraply #2 was applied today. Patient complained of some swelling in the upper leg above the ulcer will again culture wound to make sure we are on the right track area around the wound is good supple skin. Patient tolerated well the wound is smaller than it measured 2 weeks ago patient has a compliance problem. - Physical Exam Vital Signs Temp Pulse Resp BP 98.2 F 95 18 119/73 09/28/18 11:04 09/28/18 11:04 09/28/18 11:04 09/28/18 11:04 General: Oriented x3, Cooperative, Well developed HEENT: Atraumatic, PERRLA Oral: Moist Mucosa Neck: Supple, No JVD Lungs: Clear to auscultation, Normal air movement Cardiovascular: Regular rate, Regular Rhythm Abdomen: Bowel Sounds Present, Soft, Non Tender, No Hepato-splenomegaly Extremities: No clubbing, No edema Wound Measurements and Assessment WC - Nurse 1 - General Ulcer Measurement Start: 12/14/18 11:19 Freq: Status: Active Protocol: Activity Type Activity Date Activity User E-Sign Co-Sign Detail Recorded Client Recorded Date Recorded By Document 09/28/18 11:04 [facility] [id number] 09/28/18 11:10 [facility] 09/28/18 11:04 Wound Center Nurse 1 [Ulcer Assessment] #1 LLE MEDIAL ULCER -Combined with other wound No -Current Size (cm) - Length 5.1 -Current Size (cm) - Width 2.1 -Current Size (cm) - Depth 0.3 -Total Square Cm 10.71 -Photo Taken No -Tunneling No -Undermining/Tunneling No -Circular Undermining No -Exudate Amt Medium (34-66%) -Exudate Type Serosanguineous -Wound Margin Thickened -Granulation Amt Small (1-33%) -Granulation Quality [place] -Slough/Fibrin Yes -Necrosis Amt Large (67-100%) -Necrotic Tissue Type Adherent Slough -Structure Exposed N/A -Texture (Pilar-wound Skin Appearance) Scarring Rash -Moisture (Pilar-wound Skin Appearance Assessed ) -Color (Pilar-wound Skin Appearance) Assessed -Temperature (Pilar-wound Skin No Abnormality Appearance) (Pt Warm) -Tenderness on Palpation (Pilar-wound No Skin Appearance) -Anesthetic Used 5% Lidocaine Gel [Edema Assessment] -Lower Limb Edema Present Yes -Left Calf (cm) 40.1 -Left Ankle (cm) 20 WC - Nurse 2 - General Ulcer CM Notes Start: 09/21/18 11:19 Freq: Status: Active Protocol: Activity Type Activity Date Activity User E-Sign Co-Sign Detail Recorded Client Recorded Date Recorded By Document 09/28/18 11:21 [id number] 09/28/18 11:23 09/28/18 11:21 Wound Center Nurse 2 [Procedure/Treatment] #1 LLE MEDIAL ULCER -Time 11:21 -Correct Patient Yes -Correct Side, Site, Position Yes -Correct Procedure Yes -Procedure Performed Yes -Type of Procedure Debridement -Clinical Debridement Subcutaneous -Post Debridement Size (cm) - Length 5.0 -Post Debridement Size (cm) - Width 2.3 -Post Debridement Size (cm) - Depth 0.3 -Total Square Cm 11.50 -Wound/Ulcer Outcome Not Healed -Ulcer Cleansing Rinsed/ Irrigated with Saline -Foul Odor after Cleansing No -Bioengineered Tissue Yes -Type of bioengineered Tissue [id number] -Expiration Date 01/11/21 -Product Lot Number [id number] -Percent Used 100 -Saline Lot Number [id number] -Bleeding Controlled with Pressure -Offloading No -Treatment Response Procedure Tolerated Well [See Physician Procedure note for Specifics] Pain Scale: 0-10 Numeric [Pain] -Is Patient Pain Free? Yes Musculoskeletal: No Tenderness to Palpation of Joints or Extremities Lymphatic: No Cervical, Supraclavicular, or Inguinal Adenopathy Neurological: Cranial nerves II-XII grossly intact, Neuro grossly intact Psych/Mental Status: Normal Affect, Appropriate, Alert and oriented to time, place, person, mood and affect Debridement Note Post-Debridement Measurements/Treatment WC - Nurse 2 - General Ulcer CM Notes Start: 09/21/18 11:19 Freq: Status: Active Protocol: Activity Type Activity Date Activity User E-Sign Co-Sign Detail Recorded Client Recorded Date Recorded By Document 09/21/18 11:51 MW [id number] 09/21/18 11:55 MW Document 09/28/18 11:21 MW [id number] 09/28/18 11:23 MW 09/21/18 09/28/18 11:51 11:21 Wound Center Nurse 2 #1 LLE MEDIAL ULCER -Time 11:51 11:21 -Correct Patient Yes Yes -Correct Side, Site, Position Yes Yes -Correct Procedure Yes Yes -Procedure Performed Yes Yes -Type of Procedure Debridement Debridement -Clinical Debridement Subcutaneous Subcutaneous -Post Debridement Size (cm) - Length 4.8 5.0 -Post Debridement Size (cm) - Width 2.5 2.3 -Post Debridement Size (cm) - Depth 0.4 0.3 -Total Square Cm 12.00 11.50 -Wound/Ulcer Outcome Not Healed Not Healed -Ulcer Cleansing Rinsed/ Rinsed/ Irrigated with Irrigated with Saline Saline -Foul Odor after Cleansing No No -Bioengineered Tissue Yes Yes -Type of bioengineered Tissue [id number] -Expiration Date 01/11/21 01/11/21 -Product Lot Number [id number] -Percent Used 100 100 -Saline Lot Number [id number] -Bleeding Controlled with Pressure Pressure -Offloading No No -Treatment Response Procedure Procedure Tolerated Well Tolerated Well Pain Scale: 0-10 Numeric Is Patient Pain Free? Yes Yes Wound debrided: Left medial lower leg Type of Debridement: Excisional debridement Anesthesia Used: 5% Lidocaine Gel Depth: Down to and including healthy tissue, in the subcutaneous layer Instrument Used: 7mm curette Tissue Removed: Slough and fibrin Severity: Limited To Skin Breakdown Amount of bleeding with debridement: Mild Bleeding Controlled with: Compression and gauze Assessment/Plan Ulcers to the ulcer aerobic and anaerobic Active Problems (Last Reviewed 08/15/18 @ 13:38 by Juli Quarles) Traumatic ulcer of left lower leg with fat layer exposed (Acute) MRSA (methicillin resistant Staphylococcus aureus) infection (Acute) Nonhealing ulcer of left lower extremity (Chronic) Anxiety (Chronic) Assessment: Left lower extremity ulcer. Peripheral arterial disease. Bilateral lower extremity edema. MRSA infection finishing antibiotics now Plan: Debridement done as documented above. Procedure was well-tolerated. #2 puraply applied to the area if comes off she is to go to a Promogran dressing patient is to leave dressing alone and for 1 week and follow-up in 1 week . Exercise as tolerated. Advised to call with any questions or concerns. Follow- up in 1 week. This note was generated with [employer] dictation software. It may contain incorrect words, spelling, and punctuation that were not noted in checking the note before signing.
[2018-10-05 11:18] VITALS: BP 142/87; PULSE 91; RESP 18; TEMP 36.5; BMI 35.4
--- NOTE | 2018-10-05 11:56 | PN.PCM_ITS ---
(1) MRSA (methicillin resistant Staphylococcus aureus) infection Status: Acute Current Visit: No Code(s): A49.02 - Methicillin resistant Staphylococcus aureus infection, unspecified site (2) Traumatic ulcer of left lower leg with fat layer exposed Status: Acute Current Visit: Yes Code(s): L97.922 - Non-pressure chronic ulcer of unspecified part of left lower leg with fat layer exposed (3) Anxiety Status: Chronic Current Visit: Yes Code(s): F41.9 - Anxiety disorder, unspecified (4) Nonhealing ulcer of left lower extremity Status: Chronic Current Visit: Yes Code(s): L97.929 - Non-pressure chronic ulcer of unspecified part of left lower leg with unspecified severity Type of Wound Chief Complaint: Left lower leg ulcer for 3 months History of Wound: Ms. Narayanan is a 62yo well known to me and who has been seen here at the wound center by Heather Borges NP. She has been managed for left lower extremity wound. The wound appears bigger and deeper at this point the slough is better we will stop using Santyl and try Huma. Noticed an odor to the ulcer and cultures will be obtained. Complaining of a right eye infection also that is watery swollen and crusts at night. Denies any complaints at this time. Has been applying Santyl with some improvement noted per patient. Progress of Wound: Based still is some yellow discharge but lifts out easily patient was approved for puraply #3 was applied today. The wound is extremely much metal cleaner and is actually smaller and less deep. - Physical Exam Vital Signs Temp Pulse Resp BP 97.7 F L 91 18 142/87 H 10/05/18 11:18 10/05/18 11:18 10/05/18 11:18 10/05/18 11:18 General: Oriented x3, Cooperative, Well developed HEENT: Atraumatic, PERRLA Oral: Moist Mucosa Neck: Supple, No JVD Lungs: Clear to auscultation, Normal air movement Cardiovascular: Regular rate, Regular Rhythm Abdomen: Bowel Sounds Present, Soft, Non Tender, No Hepato-splenomegaly Extremities: No clubbing, No edema, - - Left lower leg ulcer Wound Measurements and Assessment WC - Nurse 1 - General Ulcer Measurement Start: 09/21/18 11:19 Freq: Status: Active Protocol: Activity Type Activity Date Activity User E-Sign Co-Sign Detail Recorded Client Recorded Date Recorded By Document 10/05/18 11:18 DV [id number] 10/05/18 11:20 DV 10/05/18 11:18 Wound Center Nurse 1 [Ulcer Assessment] #1 LLE MEDIAL ULCER -Combined with other wound No -Current Size (cm) - Length 5.2 -Current Size (cm) - Width 2.2 -Current Size (cm) - Depth 0.3 -Total Square Cm 11.44 -Photo Taken No -Epithelialization Small 1-33% -Tunneling No -Undermining/Tunneling No -Circular Undermining No -Classification - Thickness Full Thickness without Exposed Support Structure -Exudate Amt Small (1-33%) -Exudate Type Yellow/Green -Wound Margin Thickened -Granulation Amt Small (1-33%) -Granulation Quality Pale -Necrosis Amt Medium (34-66%) -Necrotic Tissue Type Adherent Slough -Structure Exposed None/Limited to Skin Breakdown -Texture (Pilar-wound Skin Appearance) Assessed Scarring -Moisture (Pilar-wound Skin Appearance Assessed ) Dry/Scaly -Color (Pilar-wound Skin Appearance) Assessed Erythema -Temperature (Pilar-wound Skin No Abnormality Appearance) (Pt Warm) -Ulcer Cleansing Rinsed/ Irrigated with Saline -Foul Odor after Cleansing No -Anesthetic Used 5% Lidocaine Gel [Edema Assessment] -Right Calf (cm) 48.6 -Right Ankle (cm) 25.0 WC - Nurse 2 - General Ulcer CM Notes Start: 09/21/18 11:19 Freq: Status: Active Protocol: Activity Type Activity Date Activity User E-Sign Co-Sign Detail Recorded Client Recorded Date Recorded By Document 10/05/18 11:31 MW [id number] 10/05/18 11:33 MW 10/05/18 11:31 Wound Center Nurse 2 [Procedure/Treatment] #1 LLE MEDIAL ULCER -Time 11:31 -Correct Patient Yes -Correct Side, Site, Position Yes -Correct Procedure Yes -Procedure Performed Yes -Type of Procedure Debridement -Clinical Debridement Subcutaneous -Post Debridement Size (cm) - Length 5.5 -Post Debridement Size (cm) - Width 2.0 -Post Debridement Size (cm) - Depth 0.3 -Total Square Cm 11.00 -Wound/Ulcer Outcome Not Healed -Ulcer Cleansing Rinsed/ Irrigated with Saline -Foul Odor after Cleansing No -Bioengineered Tissue Yes -Type of bioengineered Tissue [id number] -Expiration Date 01/11/21 -Product Lot Number [id number] -Percent Used 100 -Saline Lot Number [id number] -Bleeding Controlled with Pressure -Offloading No -Treatment Response Procedure Tolerated Well [See Physician Procedure note for Specifics] Pain Scale: 0-10 Numeric [Pain] -Is Patient Pain Free? Yes Musculoskeletal: No Tenderness to Palpation of Joints or Extremities Lymphatic: No Cervical, Supraclavicular, or Inguinal Adenopathy Neurological: Cranial nerves II-XII grossly intact, Neuro grossly intact Psych/Mental Status: Normal Affect, Appropriate Debridement Note Post-Debridement Measurements/Treatment WC - Nurse 2 - General Ulcer CM Notes Start: 09/21/18 11:19 Freq: Status: Active Protocol: Activity Type Activity Date Activity User E-Sign Co-Sign Detail Recorded Client Recorded Date Recorded By Document 09/21/18 11:51 MW [id number] 09/21/18 11:55 MW Document 09/28/18 11:21 MW [id number] 09/28/18 11:23 MW Document 10/05/18 11:31 MW [id number] 10/05/18 11:33 MW 09/21/18 09/28/18 10/05/18 11:51 11:21 11:31 Wound Center Nurse 2 #1 LLE MEDIAL ULCER -Time 11:51 11:21 11:31 -Correct Patient Yes Yes Yes -Correct Side, Site, Position Yes Yes Yes -Correct Procedure Yes Yes Yes -Procedure Performed Yes Yes Yes -Type of Procedure Debridement Debridement Debridement -Clinical Debridement Subcutaneous Subcutaneous Subcutaneous -Post Debridement Size (cm) - Length 4.8 5.0 5.5 -Post Debridement Size (cm) - Width 2.5 2.3 2.0 -Post Debridement Size (cm) - Depth 0.4 0.3 0.3 -Total Square Cm 12.00 11.50 11.00 -Wound/Ulcer Outcome Not Healed Not Healed Not Healed -Ulcer Cleansing Rinsed/ Rinsed/ Rinsed/ Irrigated with Irrigated with Irrigated with Saline Saline Saline -Foul Odor after Cleansing No No No -Bioengineered Tissue Yes Yes Yes -Type of bioengineered Tissue [id number]-CONF-CR [id number] -Expiration Date 01/11/21 01/11/21 01/11/21 -Product Lot Number [id number] -Percent Used 100 100 100 -Saline Lot Number [id number] -Bleeding Controlled with Pressure Pressure Pressure -Offloading No No No -Treatment Response Procedure Procedure Procedure Tolerated Well Tolerated Well Tolerated Well Pain Scale: 0-10 Numeric Is Patient Pain Free? Yes Yes Yes Wound debrided: Left lower leg ulcer Type of Debridement: Excisional debridement Anesthesia Used: 5% Lidocaine Gel Depth: Down to and including healthy tissue, in the subcutaneous layer Percentage of wound debrided: 100 Instrument Used: 7mm curette Tissue Removed: Slough and some fibrin Severity: Limited To Skin Breakdown Amount of bleeding with debridement: Mild Bleeding Controlled with: Compression and gauze Patient tolerated procedure well Assessment/Plan Active Problems (Last Reviewed 08/15/18 @ 13:38 by Juli Quarles) Traumatic ulcer of left lower leg with fat layer exposed (Acute) Nonhealing ulcer of left lower extremity (Chronic) Anxiety (Chronic) Assessment: Left lower extremity ulcer. Peripheral arterial disease. Bilateral lower extremity edema. MRSA infection finishing antibiotics now Plan: Debridement done as documented above. Procedure was well-tolerated. #3 puraply applied to the area if comes off she is to go to a Promogran dressing patient is to leave dressing alone and for 1 week and follow-up in 1 week . Exercise as tolerated. Advised to call with any questions or concerns. Follow- up in 1 week. This note was generated with [employer] software. It may contain incorrect words, spelling, and punctuation that were not noted in checking the note before signing.
== END 2018-10-08 23:59 ==
LOC: WC 11:00
PROVIDERS: Family Provider Internal Medicine; PCP Internal Medicine; Referring Provider Nurse Practitioner; Visit Provider Nurse Practitioner
DX: I73.9 Peripheral vascular disease, unspecified (principal); L97.822 Non-pressure chronic ulcer of other part of left lower leg with fat layer exposed; F41.9 Anxiety disorder, unspecified; B95.62 Methicillin resistant Staphylococcus aureus infection as the cause of diseases classified elsewhere; R60.0 Localized edema
CPT/HCPCS: 15271; 87070; 87075; 87186; 87205; Q4172

== ENCOUNTER 2018-10-12 10:48 | Outpatient (RCR) | payer MEDICARE, SELFPAY ==
[2018-10-05 13:17] VITALS: BMI 35.4
[2018-10-09 00:31] VITALS: BP 142/87; PULSE 91; RESP 18; TEMP 36.5
[2018-10-12 10:50] VITALS: BP 110/67; PULSE 95; RESP 18; TEMP 36.4; BMI 35.4
--- NOTE | 2018-10-12 12:01 | PCM.WC.PN ---
(1) Blister Status: Acute Current Visit: Yes Code(s): T14.8XXA - Other injury of unspecified body region, initial encounter (2) Traumatic ulcer of left lower leg with fat layer exposed Status: Acute Current Visit: Yes Code(s): L97.922 - Non-pressure chronic ulcer of unspecified part of left lower leg with fat layer exposed (3) Impaired physical mobility Status: Chronic Current Visit: Yes Code(s): Z74.09 - Other reduced mobility (4) Nonhealing ulcer of left lower extremity Status: Chronic Current Visit: Yes Code(s): L97.929 - Non-pressure chronic ulcer of unspecified part of left lower leg with unspecified severity (5) Peripheral arterial disease Status: Chronic Current Visit: Yes Code(s): I73.9 - Peripheral vascular disease, unspecified (6) Peripheral neuropathy Status: Chronic Current Visit: Yes Qualifiers: Code(s): G62.9 - Polyneuropathy, unspecified (7) Tobacco abuse Status: Chronic Current Visit: Yes Code(s): Z72.0 - Tobacco use (8) Ulcer of left lower extremity with fat layer exposed Status: Chronic Current Visit: Yes Code(s): L97.922 - Non-pressure chronic ulcer of unspecified part of left lower leg with fat layer exposed (9) Venous insufficiency Status: Chronic Current Visit: Yes Code(s): I87.2 - Venous insufficiency (chronic) (peripheral) (10) stents in leg for neuropathy Status: Chronic Current Visit: Yes Type of Wound Chief Complaint: Left lower leg ulcer for 3 months History of Wound: Ms. Narayanan is a 62yo well known to me and who has been seen here at the wound center by Heather Borgse NP. She has been managed for left lower extremity wound. The wound appears bigger and deeper at this point the slough is better we will stop using Santyl and try Huma. Noticed an odor to the ulcer and cultures will be obtained. Complaining of a right eye infection also that is watery swollen and crusts at night. Denies any complaints at this time. Has been applying Santyl with some improvement noted per patient. Progress of Wound: Based still is some yellow discharge but lifts out easily patient was approved for puraply #4 was applied today. Developing a lot of maceration and redness around the left lower leg were thinking is that the lifting out of the yellow slough from the puraply. We will try using a ABD pad for absorption patient was suggested not using any kind of tape on her legs. Wound noted on right heel from blister now open with some yellow slough and center patient started using her own Santyl will continue the Santyl for another week Or re-seen by another physician and I will see her in the following week. Cultures taken of the left lower ulcer. - Physical Exam Vital Signs Temp Pulse Resp BP 97.6 F L 95 18 110/67 10/12/18 10:50 10/12/18 10:50 10/12/18 10:50 10/12/18 10:50 General: Oriented x3, Cooperative, Well developed HEENT: Atraumatic, PERRLA Oral: Moist Mucosa Neck: Supple, No JVD Lungs: Clear to auscultation, Normal air movement Cardiovascular: Regular rate, Regular Rhythm Abdomen: Bowel Sounds Present, Soft, Non Tender, No Hepato-splenomegaly Extremities: No clubbing, No edema, Edema, - - Left lower leg ulcer right heel ulcer Skin: Ulcer/ Wound Wound Measurements and Assessment WC - Nurse 1 - General Ulcer Measurement Start: 10/12/18 10:50 Freq: Status: Active Protocol: Activity Type Activity Date Activity User E-Sign Co-Sign Detail Recorded Client Recorded Date Recorded By Document 10/12/18 10:50 DE [id number] 10/12/18 11:02 DE 10/12/18 10:50 Wound Center Nurse 1 [Ulcer Assessment] #2 Right Heel -Current Size (cm) - Length 3 -Current Size (cm) - Width 1.8 -Current Size (cm) - Depth 0.1 -Total Square Cm 5.4 -Date of Last Picture (Recall this 10/12/18 field) -Photo Taken Yes -Exudate Amt Small (1-33%) -Exudate Type Serosanguineous -Wound Margin Flat & Intact -Granulation Amt Medium (34-66%) -Granulation Quality Pale [place] -Necrosis Amt Medium (34-66%) -Necrotic Tissue Type Adherent Slough -Texture (Pilar-wound Skin Appearance) Assessed Localized Edema -Moisture (Pilar-wound Skin Appearance Assessed ) Maceration -Color (Pilar-wound Skin Appearance) Assessed -Temperature (Pilar-wound Skin No Abnormality Appearance) (Pt Warm) -Tenderness on Palpation (Pilar-wound No Skin Appearance) -Ulcer Cleansing Rinsed/ Irrigated with Saline -Foul Odor after Cleansing No -Anesthetic Used 5% Lidocaine Gel #1 LLE MEDIAL ULCER -Combined with other wound No -Current Size (cm) - Length 5.8 -Current Size (cm) - Width 8 -Current Size (cm) - Depth 0.2 -Total Square Cm 46.4 -Epithelialization Small 1-33% -Tunneling No -Undermining/Tunneling No -Circular Undermining No -Classification - Thickness Full Thickness without Exposed Support Structure -Exudate Amt Medium (34-66%) -Exudate Type Purulent -Wound Margin Flat & Intact -Granulation Amt Small (1-33%) -Granulation Quality Pale [place] -Necrosis Amt Large (67-100%) -Necrotic Tissue Type Adherent Slough -Structure Exposed None/Limited to Skin Breakdown -Texture (Pilar-wound Skin Appearance) Assessed Localized Edema -Moisture (Pilar-wound Skin Appearance Assessed ) Maceration -Color (Pilar-wound Skin Appearance) Assessed -Temperature (Pilar-wound Skin No Abnormality Appearance) (Pt Warm) -Ulcer Cleansing Rinsed/ Irrigated with Saline -Foul Odor after Cleansing No -Anesthetic Used 5% Lidocaine Gel [Edema Assessment] -Right Calf (cm) 36.6 -Right Ankle (cm) 22.5 -Left Calf (cm) 37 -Point of Measurement (cm from the 22.5 medial instep) WC - Nurse 2 - General Ulcer CM Notes Start: 10/12/18 10:50 Freq: Status: Active Protocol: Activity Type Activity Date Activity User E-Sign Co-Sign Detail Recorded Client Recorded Date Recorded By Document 10/12/18 11:06 DE [id number] 10/12/18 11:20 DE 10/12/18 11:06 Wound Center Nurse 2 [Procedure/Treatment] #2 Right Heel -Time 11:07 -Correct Patient Yes -Correct Side, Site, Position Yes -Correct Procedure Yes -Procedure Performed Yes -Type of Procedure Debridement -Clinical Debridement Subcutaneous -Post Debridement Size (cm) - Length 3.0 -Post Debridement Size (cm) - Width 2.4 -Post Debridement Size (cm) - Depth 0.2 -Total Square Cm 7.20 -Wound/Ulcer Outcome Not Healed -Ulcer Cleansing Rinsed/ Irrigated with Saline -Foul Odor after Cleansing No -Bioengineered Tissue No -Bleeding Controlled with Pressure -Offloading No -Treatment Response Procedure Tolerated Well #1 LLE MEDIAL ULCER -Time 11:07 -Correct Patient Yes -Correct Side, Site, Position Yes -Correct Procedure Yes -Procedure Performed Yes -Type of Procedure Debridement -Clinical Debridement Subcutaneous -Post Debridement Size (cm) - Length 5.3 -Post Debridement Size (cm) - Width 2.5 -Post Debridement Size (cm) - Depth 0.4 -Total Square Cm 13.25 -Wound/Ulcer Outcome Not Healed -Ulcer Cleansing Rinsed/ Irrigated with Saline -Foul Odor after Cleansing No -Bioengineered Tissue Yes -Type of bioengineered Tissue [id number] -Expiration Date 11/03/20 -Product Lot Number [id number] -Percent Used 100 -Saline Lot Number [id number] -Bleeding Controlled with Pressure -Offloading No -Treatment Response Procedure Tolerated Well [See Physician Procedure note for Specifics] Pain Scale: 0-10 Numeric [Pain] -Is Patient Pain Free? Yes Musculoskeletal: No Tenderness to Palpation of Joints or Extremities Lymphatic: No Cervical, Supraclavicular, or Inguinal Adenopathy Neurological: Cranial nerves II-XII grossly intact, Neuro grossly intact Psych/Mental Status: Normal Affect, Appropriate Debridement Note Post-Debridement Measurements/Treatment WC - Nurse 2 - General Ulcer CM Notes Start: 10/12/18 10:50 Freq: Status: Active Protocol: Activity Type Activity Date Activity User E-Sign Co-Sign Detail Recorded Client Recorded Date Recorded By Document 10/12/18 11:06 DE [id number] 10/12/18 11:20 DE 10/12/18 11:06 Wound Center Nurse 2 #2 Right Heel -Time 11:07 -Correct Patient Yes -Correct Side, Site, Position Yes -Correct Procedure Yes -Procedure Performed Yes -Type of Procedure Debridement -Clinical Debridement Subcutaneous -Post Debridement Size (cm) - Length 3.0 -Post Debridement Size (cm) - Width 2.4 -Post Debridement Size (cm) - Depth 0.2 -Total Square Cm 7.20 -Wound/Ulcer Outcome Not Healed -Ulcer Cleansing Rinsed/ Irrigated with Saline -Foul Odor after Cleansing No -Bioengineered Tissue No -Bleeding Controlled with Pressure -Offloading No -Treatment Response Procedure Tolerated Well #1 LLE MEDIAL ULCER -Time 11:07 -Correct Patient Yes -Correct Side, Site, Position Yes -Correct Procedure Yes -Procedure Performed Yes -Type of Procedure Debridement -Clinical Debridement Subcutaneous -Post Debridement Size (cm) - Length 5.3 -Post Debridement Size (cm) - Width 2.5 -Post Debridement Size (cm) - Depth 0.4 -Total Square Cm 13.25 -Wound/Ulcer Outcome Not Healed -Ulcer Cleansing Rinsed/ Irrigated with Saline -Foul Odor after Cleansing No -Bioengineered Tissue Yes -Type of bioengineered Tissue [id number] -Expiration Date 11/03/20 -Product Lot Number [id number] -Percent Used 100 -Saline Lot Number [id number] -Bleeding Controlled with Pressure -Offloading No -Treatment Response Procedure Tolerated Well Pain Scale: 0-10 Numeric Is Patient Pain Free? Yes Wound debrided: Lower leg Type of Debridement: Excisional debridement Anesthesia Used: 5% Lidocaine Gel Depth: Down to and including healthy tissue, in the subcutaneous layer Percentage of wound debrided: 100 Instrument Used: 7mm curette Tissue Removed: Slough some fibrin Severity: Fat Layer Exposed Amount of bleeding with debridement: None Patient tolerated procedure well - Additional Wound Wound debrided: Right heel Type of Debridement: Excisional debridement Anesthesia Used: 5% Lidocaine Gel Depth: Down to and including healthy tissue, in the subcutaneous layer Percentage of wound debrided: 100 Instrument Used: 7mm curette Tissue Removed: Slough Severity: Limited To Skin Breakdown Amount of bleeding with debridement: None Bleeding Controlled with: Pressure Patient tolerated procedure: Patient tolerated procedure well Assessment/Plan Aerobic and anaerobic cultures taken of left lower leg Active Problems (Last Reviewed 10/05/18 @ 13:14 by Juli Quarles) Traumatic ulcer of left lower leg with fat layer exposed (Acute) Nonhealing ulcer of left lower extremity (Chronic) Blister (Acute) Ulcer of left lower extremity with fat layer exposed (Chronic) Venous insufficiency (Chronic) Impaired physical mobility (Chronic) stents in leg for neuropathy (Chronic) Peripheral arterial disease (Chronic) Peripheral neuropathy (Chronic) Tobacco abuse (Chronic) Assessment: Left lower extremity ulcer. Peripheral arterial disease. Bilateral lower extremity edema. Right heel blister now open ulcer Plan: Debridement done as documented above. Procedure was well-tolerated. #4 puraply applied to the area if comes off she is to go to a Promogran dressing patient is to leave dressing alone and for 1 week and follow-up in 1 week . Right heel ulcer apply Santyl nickel thickness to area cover with gauze and Coban and and follow-up in 1 week. This note was generated with [employer] dictation software. It may contain incorrect words, spelling, and punctuation that were not noted in checking the note before signing.
--- NOTE | 2018-10-12 12:05 | PN.PCM_ITS ---
(1) Blister Status: Acute Current Visit: Yes Code(s): T14.8XXA - Other injury of unspecified body region, initial encounter (2) Traumatic ulcer of left lower leg with fat layer exposed Status: Acute Current Visit: Yes Code(s): L97.922 - Non-pressure chronic ulcer of unspecified part of left lower leg with fat layer exposed (3) Impaired physical mobility Status: Chronic Current Visit: Yes Code(s): Z74.09 - Other reduced mobility (4) Nonhealing ulcer of left lower extremity Status: Chronic Current Visit: Yes Code(s): L97.929 - Non-pressure chronic ulcer of unspecified part of left lower leg with unspecified severity (5) Peripheral arterial disease Status: Chronic Current Visit: Yes Code(s): I73.9 - Peripheral vascular disease, unspecified (6) Peripheral neuropathy Status: Chronic Current Visit: Yes Qualifiers: Code(s): G62.9 - Polyneuropathy, unspecified (7) Tobacco abuse Status: Chronic Current Visit: Yes Code(s): Z72.0 - Tobacco use (8) Ulcer of left lower extremity with fat layer exposed Status: Chronic Current Visit: Yes Code(s): L97.922 - Non-pressure chronic ulcer of unspecified part of left lower leg with fat layer exposed (9) Venous insufficiency Status: Chronic Current Visit: Yes Code(s): I87.2 - Venous insufficiency (chronic) (peripheral) (10) stents in leg for neuropathy Status: Chronic Current Visit: Yes Type of Wound Chief Complaint: Left lower leg ulcer for 3 months History of Wound: Ms. Narayanan is a 62yo well known to me and who has been seen here at the wound center by Heather Borges NP. She has been managed for left lower extremity wound. The wound appears bigger and deeper at this point the slough is better we will stop using Santyl and try Huma. Noticed an odor to the ulcer and cultures will be obtained. Complaining of a right eye infection also that is watery swollen and crusts at night. Denies any complaints at this time. Has been applying Santyl with some improvement noted per patient. Progress of Wound: Based still is some yellow discharge but lifts out easily patient was approved for puraply #4 was applied today. Developing a lot of maceration and redness around the left lower leg were thinking is that the lifting out of the yellow slough from the puraply. We will try using a ABD pad for absorption patient was suggested not using any kind of tape on her legs. Wound noted on right heel from blister now open with some yellow slough and center patient started using her own Santyl will continue the Santyl for another week Or re-seen by another physician and I will see her in the following week. Cultures taken of the left lower ulcer. - Physical Exam Vital Signs Temp Pulse Resp BP 97.6 F L 95 18 110/67 10/12/18 10:50 10/12/18 10:50 10/12/18 10:50 10/12/18 10:50 General: Oriented x3, Cooperative, Well developed HEENT: Atraumatic, PERRLA Oral: Moist Mucosa Neck: Supple, No JVD Lungs: Clear to auscultation, Normal air movement Cardiovascular: Regular rate, Regular Rhythm Abdomen: Bowel Sounds Present, Soft, Non Tender, No Hepato-splenomegaly Extremities: No clubbing, No edema, Edema, - - Left lower leg ulcer right heel ulcer Skin: Ulcer/ Wound Wound Measurements and Assessment WC - Nurse 1 - General Ulcer Measurement Start: 10/12/18 10:50 Freq: Status: Active Protocol: Activity Type Activity Date Activity User E-Sign Co-Sign Detail Recorded Client Recorded Date Recorded By Document 10/12/18 10:50 TN [id number] 10/12/18 11:02 TN 10/12/18 10:50 Wound Center Nurse 1 [Ulcer Assessment] #2 Right Heel -Current Size (cm) - Length 3 -Current Size (cm) - Width 1.8 -Current Size (cm) - Depth 0.1 -Total Square Cm 5.4 -Date of Last Picture (Recall this 10/12/18 field) -Photo Taken Yes -Exudate Amt Small (1-33%) -Exudate Type Serosanguineous -Wound Margin Flat & Intact -Granulation Amt Medium (34-66%) -Granulation Quality Pale [place] -Necrosis Amt Medium (34-66%) -Necrotic Tissue Type Adherent Slough -Texture (Pilar-wound Skin Appearance) Assessed Localized Edema -Moisture (Pilar-wound Skin Appearance Assessed ) Maceration -Color (Pilar-wound Skin Appearance) Assessed -Temperature (Pilar-wound Skin No Abnormality Appearance) (Pt Warm) -Tenderness on Palpation (Pilar-wound No Skin Appearance) -Ulcer Cleansing Rinsed/ Irrigated with Saline -Foul Odor after Cleansing No -Anesthetic Used 5% Lidocaine Gel #1 LLE MEDIAL ULCER -Combined with other wound No -Current Size (cm) - Length 5.8 -Current Size (cm) - Width 8 -Current Size (cm) - Depth 0.2 -Total Square Cm 46.4 -Epithelialization Small 1-33% -Tunneling No -Undermining/Tunneling No -Circular Undermining No -Classification - Thickness Full Thickness without Exposed Support Structure -Exudate Amt Medium (34-66%) -Exudate Type Purulent -Wound Margin Flat & Intact -Granulation Amt Small (1-33%) -Granulation Quality Pale [place] -Necrosis Amt Large (67-100%) -Necrotic Tissue Type Adherent Slough -Structure Exposed None/Limited to Skin Breakdown -Texture (Pilar-wound Skin Appearance) Assessed Localized Edema -Moisture (Pilar-wound Skin Appearance Assessed ) Maceration -Color (Pilar-wound Skin Appearance) Assessed -Temperature (Pilar-wound Skin No Abnormality Appearance) (Pt Warm) -Ulcer Cleansing Rinsed/ Irrigated with Saline -Foul Odor after Cleansing No -Anesthetic Used 5% Lidocaine Gel [Edema Assessment] -Right Calf (cm) 36.6 -Right Ankle (cm) 22.5 -Left Calf (cm) 37 -Point of Measurement (cm from the 22.5 medial instep) WC - Nurse 2 - General Ulcer CM Notes Start: 10/12/18 10:50 Freq: Status: Active Protocol: Activity Type Activity Date Activity User E-Sign Co-Sign Detail Recorded Client Recorded Date Recorded By Document 10/12/18 11:06 TN [id number] 10/12/18 11:20 TN 10/12/18 11:06 Wound Center Nurse 2 [Procedure/Treatment] #2 Right Heel -Time 11:07 -Correct Patient Yes -Correct Side, Site, Position Yes -Correct Procedure Yes -Procedure Performed Yes -Type of Procedure Debridement -Clinical Debridement Subcutaneous -Post Debridement Size (cm) - Length 3.0 -Post Debridement Size (cm) - Width 2.4 -Post Debridement Size (cm) - Depth 0.2 -Total Square Cm 7.20 -Wound/Ulcer Outcome Not Healed -Ulcer Cleansing Rinsed/ Irrigated with Saline -Foul Odor after Cleansing No -Bioengineered Tissue No -Bleeding Controlled with Pressure -Offloading No -Treatment Response Procedure Tolerated Well #1 LLE MEDIAL ULCER -Time 11:07 -Correct Patient Yes -Correct Side, Site, Position Yes -Correct Procedure Yes -Procedure Performed Yes -Type of Procedure Debridement -Clinical Debridement Subcutaneous -Post Debridement Size (cm) - Length 5.3 -Post Debridement Size (cm) - Width 2.5 -Post Debridement Size (cm) - Depth 0.4 -Total Square Cm 13.25 -Wound/Ulcer Outcome Not Healed -Ulcer Cleansing Rinsed/ Irrigated with Saline -Foul Odor after Cleansing No -Bioengineered Tissue Yes -Type of bioengineered Tissue [id number] -Expiration Date 11/03/20 -Product Lot Number [id number] -Percent Used 100 -Saline Lot Number [id number] -Bleeding Controlled with Pressure -Offloading No -Treatment Response Procedure Tolerated Well [See Physician Procedure note for Specifics] Pain Scale: 0-10 Numeric [Pain] -Is Patient Pain Free? Yes Musculoskeletal: No Tenderness to Palpation of Joints or Extremities Lymphatic: No Cervical, Supraclavicular, or Inguinal Adenopathy Neurological: Cranial nerves II-XII grossly intact, Neuro grossly intact Psych/Mental Status: Normal Affect, Appropriate Debridement Note Post-Debridement Measurements/Treatment WC - Nurse 2 - General Ulcer CM Notes Start: 10/12/18 10:50 Freq: Status: Active Protocol: Activity Type Activity Date Activity User E-Sign Co-Sign Detail Recorded Client Recorded Date Recorded By Document 10/12/18 11:06 TN [id number] 10/12/18 11:20 TN 10/12/18 11:06 Wound Center Nurse 2 #2 Right Heel -Time 11:07 -Correct Patient Yes -Correct Side, Site, Position Yes -Correct Procedure Yes -Procedure Performed Yes -Type of Procedure Debridement -Clinical Debridement Subcutaneous -Post Debridement Size (cm) - Length 3.0 -Post Debridement Size (cm) - Width 2.4 -Post Debridement Size (cm) - Depth 0.2 -Total Square Cm 7.20 -Wound/Ulcer Outcome Not Healed -Ulcer Cleansing Rinsed/ Irrigated with Saline -Foul Odor after Cleansing No -Bioengineered Tissue No -Bleeding Controlled with Pressure -Offloading No -Treatment Response Procedure Tolerated Well #1 LLE MEDIAL ULCER -Time 11:07 -Correct Patient Yes -Correct Side, Site, Position Yes -Correct Procedure Yes -Procedure Performed Yes -Type of Procedure Debridement -Clinical Debridement Subcutaneous -Post Debridement Size (cm) - Length 5.3 -Post Debridement Size (cm) - Width 2.5 -Post Debridement Size (cm) - Depth 0.4 -Total Square Cm 13.25 -Wound/Ulcer Outcome Not Healed -Ulcer Cleansing Rinsed/ Irrigated with Saline -Foul Odor after Cleansing No -Bioengineered Tissue Yes -Type of bioengineered Tissue [id number] -Expiration Date 11/03/20 -Product Lot Number [id number] -Percent Used 100 -Saline Lot Number [id number] -Bleeding Controlled with Pressure -Offloading No -Treatment Response Procedure Tolerated Well Pain Scale: 0-10 Numeric Is Patient Pain Free? Yes Wound debrided: Lower leg Type of Debridement: Excisional debridement Anesthesia Used: 5% Lidocaine Gel Depth: Down to and including healthy tissue, in the subcutaneous layer Percentage of wound debrided: 100 Instrument Used: 7mm curette Tissue Removed: Slough some fibrin Severity: Fat Layer Exposed Amount of bleeding with debridement: None Patient tolerated procedure well - Additional Wound Wound debrided: Right heel Type of Debridement: Excisional debridement Anesthesia Used: 5% Lidocaine Gel Depth: Down to and including healthy tissue, in the subcutaneous layer Percentage of wound debrided: 100 Instrument Used: 7mm curette Tissue Removed: Slough Severity: Limited To Skin Breakdown Amount of bleeding with debridement: None Bleeding Controlled with: Pressure Patient tolerated procedure: Patient tolerated procedure well Assessment/Plan Aerobic and anaerobic cultures taken of left lower leg Active Problems (Last Reviewed 10/05/18 @ 13:14 by Juli Quarles) Traumatic ulcer of left lower leg with fat layer exposed (Acute) Nonhealing ulcer of left lower extremity (Chronic) Blister (Acute) Ulcer of left lower extremity with fat layer exposed (Chronic) Venous insufficiency (Chronic) Impaired physical mobility (Chronic) stents in leg for neuropathy (Chronic) Peripheral arterial disease (Chronic) Peripheral neuropathy (Chronic) Tobacco abuse (Chronic) Assessment: Left lower extremity ulcer. Peripheral arterial disease. Bilateral lower extremity edema. Right heel blister now open ulcer Plan: Debridement done as documented above. Procedure was well-tolerated. #4 puraply applied to the area if comes off she is to go to a Promogran dressing patient is to leave dressing alone and for 1 week and follow-up in 1 week . Right heel ulcer apply Santyl nickel thickness to area cover with gauze and Coban and and follow-up in 1 week. This note was generated with [employer] dictation software. It may contain incorrect words, spelling, and punctuation that were not noted in checking the note before signing.
[2018-10-12 12:35] LABS: Prealbumin 20.4 mg/dL (20.0-40.0)
== END 2018-11-08 23:59 ==
LOC: WC 10:48
PROVIDERS: Family Provider Internal Medicine; PCP Internal Medicine; Referring Provider Nurse Practitioner; Visit Provider Nurse Practitioner
DX: I73.9 Peripheral vascular disease, unspecified (principal); L97.822 Non-pressure chronic ulcer of other part of left lower leg with fat layer exposed; F41.9 Anxiety disorder, unspecified; R60.0 Localized edema; B95.62 Methicillin resistant Staphylococcus aureus infection as the cause of diseases classified elsewhere; G62.9 Polyneuropathy, unspecified; Z74.09 Other reduced mobility; I87.2 Venous insufficiency (chronic) (peripheral); L97.411 Non-pressure chronic ulcer of right heel and midfoot limited to breakdown of skin
CPT/HCPCS: 11042; 15271; 84134; 87070; 87075; 87076; 87077; 87186; 87205; Q4196

== ENCOUNTER 2018-11-30 13:45 | Outpatient (RCR) | payer MEDICARE, SELFPAY ==
[2018-11-09 00:57] VITALS: BP 110/67; PULSE 95; RESP 18; TEMP 36.4
[2018-11-22 14:51] VITALS: BP 150/79; PULSE 83; RESP 18; TEMP 36.6; BMI 35.4
--- NOTE | 2018-11-22 19:36 | PCM.WC.HP ---
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: Acute Code(s): L97.922 - Non-pressure chronic ulcer of unspecified part of left lower leg with fat layer exposed (2) Ulcer of right heel Status: Acute Code(s): L97.419 - Non-pressure chronic ulcer of right heel and midfoot with unspecified severity (3) Goiter Status: Chronic Code(s): E04.9 - Nontoxic goiter, unspecified (4) Hypertension Status: Chronic Code(s): I10 - Essential (primary) hypertension (5) Impaired physical mobility Status: Chronic Code(s): Z74.09 - Other reduced mobility (6) Peripheral arterial disease Status: Chronic Code(s): I73.9 - Peripheral vascular disease, unspecified (7) Peripheral neuropathy Status: Chronic Qualifiers: Code(s): G62.9 - Polyneuropathy, unspecified (8) Venous insufficiency Status: Chronic Code(s): I87.2 - Venous insufficiency (chronic) (peripheral) (9) stents in leg for neuropathy Status: Chronic History of Present Illness Date of Service: 11/22/18 Chief Complaint: Left lower leg ulcer for 5 months History of Wound: Ms. Narayanan is a 62yo well known to me and who has been seen here at the wound center by Heather Borges NP. She has been managed for left lower extremity wound. Unfortunately, due to scheduling conflicts the patient states that she has missed the last 6 weeks of appointments. The ulceration to the left lower anterior extremity appears bigger and deeper at this point with a large amount of slough, the patient has been using antibiotic ointment on this. He also has a ulceration to her right heel which she refuses debridement to and has been using antibiotic ointment on that as well. She has recently noticed an odor to the ulcer and cultures will be obtained. She denies any systemic signs of infection at this time. The patient otherwise denies any fever, chills, nausea, vomiting, shortness of breath, chest pain or pressure, palpitations, orthopnea, lower extremity edema, syncope or presyncopal episodes. Past Medical History Past Medical History: Chronic Problems (Last Reviewed 10/05/18 @ 13:14 by Juli Quarles) Nonhealing ulcer of left lower extremity (Chronic) Ulcer of left lower extremity with fat layer exposed (Chronic) Venous insufficiency (Chronic) Tricompartmental knee joint arthritis (Chronic) Degeneration of lumbar intervertebral disc (Chronic) Asymptomatic postmenopausal status (Chronic) Impaired physical mobility (Chronic) stents in leg for neuropathy (Chronic) trigeminal neuralgia repair (Chronic) Anxiety (Chronic) Hypertension (Chronic) Dyspnea on exertion (Chronic) Peripheral arterial disease (Chronic) Peripheral neuropathy (Chronic) Localized swelling, mass or lump of neck (Chronic) Gallstone (Chronic) Goiter (Chronic) Tobacco abuse (Chronic) Surgical History: - Allergies/Adverse Reactions: Allergies No Known Allergies Allergy (Unverified 11/22/18 15:08) Home Medications: Ambulatory Orders Medication Instructions Recorded Tizanidine HCl [Zanaflex] 4 mg PO 4X/DAY 07/26/17 Aspirin [Aspirin, Baby] 81 mg PO DAILY@0800 07/27/17 Buprenorphine 1 patch TRANSDERMAL QWEEK #1 10/19/17 patch.tdwk lisinopril 5 mg tablet 10 mg PO BID tab 11/03/17 gabapentin 600 mg tablet 400 mg PO .qid tab 02/06/18 trazodone 50 mg tablet 50 mg PO QHS PRN #60 tab 07/18/18 levothyroxine 100 mcg capsule 100 mcg PO DAILY 08/15/18 ondansetron HCl 4 mg tablet 4 mg PO Q12H PRN tab 08/15/18 tramadol 50 mg tablet 50 mg PO Q12H tab 08/15/18 buPROPion tablets [Wellbutrin 50 mg 11/22/18 tablets] doxycycline monohydrate 100 mg 100 mg PO BID #20 cap 11/27/18 capsule - Family History Maternal Family History: Family History (Last Reviewed 10/05/18 @ 13:14 by Juli Quarles) Mother Heart disease Myocardial infarction Hypertension Father Cancer Heart Disease Paternal Family History: Family History (Last Reviewed 10/05/18 @ 13:14 by Juli Quarles) Mother Heart disease Myocardial infarction Hypertension Father Cancer No pertinent history Smoking Status: Current every day smoker Review of Systems Constitutional: Denies: Chills, Fever, Weight Change Eyes: Denies: Pain, Vision Change HEENT: Denies: Difficulty Hearing, Difficulty Swallowing, Sinus Congestion Cardiovascular: Denies: Chest Pain, Palpitations Respiratory: Denies: Cough, Shortness of Breath Gastrointestinal: Denies: Diarrhea, Nausea, Vomiting Genitourinary: Denies: Dysuria, Hematuria Skin: Reports: Wounds - See HPI Neurological: Denies: Balance problems, Blurred vision, Difficulty swallowing, Focal weakness Psychiatric: Denies: Anxiety, Depression Endocrine: Denies: Heat/ Cold Intolerance, Polydipsia, Polyuria Hematologic/ Lymphatic: Denies: Easy Bruising, Easy Bleeding - Physical Exam Vital Signs Temp Pulse Resp BP 97.8 F 83 18 150/79 H 11/22/18 14:51 11/22/18 14:51 11/22/18 14:51 11/22/18 14:51 General: Alert, Oriented x3, Cooperative, No apparent distress HEENT: Atraumatic, PERRLA Oral: Moist Mucosa Neck: Supple, - - Large goiter Lungs: Clear to auscultation, Normal air movement, No rhonchi, No wheeze, No rales Cardiovascular: Regular rate, Regular Rhythm, Normal S1, Normal S2 Abdomen: Bowel Sounds Present, Soft, Non Tender, Non-Distended, Obese Extremities: No clubbing, No cyanosis, Diminished Peripheral Pulses, Edema - Generalized +1 bilateral lower extremity edema Skin: Ulcer/ Wound - Ulceration to left anterior lower extremity with adherent slough, periwound bed slightly inflamed, no signs of obvious infection at this time with no streaking, malodor, or drainage, right heel ulceration covered with slough, no redness or signs of infection, patient refuses debridement Debridement Note Post-Debridement Measurements/Treatment WC - Nurse 2 - General Ulcer CM Notes Start: 11/22/18 14:50 Freq: Status: Active Protocol: Activity Type Activity Date Activity User E-Sign Co-Sign Detail Recorded Client Recorded Date Recorded By Document 11/22/18 16:29 DV [id number] 11/22/18 16:36 DV 11/22/18 16:29 Wound Center Nurse 2 #4 L Lower Leg -Time 16:31 -Correct Patient Yes -Correct Side, Site, Position Yes -Correct Procedure Yes -Procedure Performed Yes -Type of Procedure Debridement -Clinical Debridement Subcutaneous -Post Debridement Size (cm) - Length 5.2 -Post Debridement Size (cm) - Width 3.2 -Post Debridement Size (cm) - Depth 0.6 -Total Square Cm 16.64 -Wound/Ulcer Outcome Not Healed -Ulcer Cleansing Rinsed/ Irrigated with Saline -Foul Odor after Cleansing No -Bioengineered Tissue No -Bleeding Controlled with Pressure -Offloading No -Treatment Response Procedure Tolerated Well #3 R Heel -Time 16:32 -Correct Patient Yes -Correct Side, Site, Position Yes -Procedure Performed No -Post Debridement Size (cm) - Length 1.5 -Post Debridement Size (cm) - Width 0.6 -Post Debridement Size (cm) - Depth 0.1 -Total Square Cm 0.90 -Wound/Ulcer Outcome Not Healed -Ulcer Cleansing Rinsed/ Irrigated with Saline -Foul Odor after Cleansing No -Bioengineered Tissue No Wound debrided: Left anterior venous leg ulcer Laterality: Left Type of Debridement: Excisional debridement Anesthesia Used: 5% Lidocaine Gel Depth: in the subcutaneous layer Percentage of wound debrided: 100 Instrument Used: 5mm curette Tissue Removed: Slough and devitalized tissue Severity: Fat Layer Exposed Amount of bleeding with debridement: Mild Bleeding Controlled with: Pressure Patient tolerated procedure well Assessment/Plan Assessment: Left lower extremity ulcer suspect mixed venous and arterial component. Peripheral arterial disease. Bilateral lower extremity edema. Right heel blister now open ulcer with adherent slough, patient refuses debridement Plan: The patient was seen and examined at the wound center today and was updated on the plan of care. A subcutaneous debridement was performed today. The patient tolerated the procedure well. The patients wound care will consist of:apply santyl to both ulcerations daily and cover with gauze. Double tubigrips for compression. Wound cultures were collected. Patient educated on the importance of diet on wound healing and instructed to increase protein and vitamin C intake. Patient verbalized understanding. Patient will follow up at wound healing center in one week or sooner if needed. Educated on the importance of following up and not missing her wound center appts. This note was generated with [employer] dictation software. It may contain incorrect words, spelling, and punctuation that were not noted in checking the note before signing. Code Visit Office Visits / Consults: [id number] OV L3 Est [id number]: [id number] Yaquelin subq tissue 20 sq cm/<
[2018-11-23 17:31] LABS: M R Staph aureus DNA By PCR POSITIVE (Negative); Probe Check PASS; Staph aureus DNA By PCR POSITIVE (Negative)
[2018-11-30 14:01] VITALS: BP 169/73; PULSE 82; RESP 18; TEMP 37.4; BMI 35.4
--- NOTE | 2018-11-30 19:42 | PCM.WC.HP ---
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 Current Visit: Yes Code(s): L97.922 - Non-pressure chronic ulcer of unspecified part of left lower leg with fat layer exposed (2) MRSA (methicillin resistant Staphylococcus aureus) infection Status: Acute Current Visit: Yes Code(s): A49.02 - Methicillin resistant Staphylococcus aureus infection, unspecified site Comment: left lower leg (3) Nonhealing ulcer of left lower extremity Status: Chronic Current Visit: Yes Qualifiers: Non-pressure ulcer stage: with fat layer exposed Qualified Code(s): L97.922 - Non-pressure chronic ulcer of unspecified part of left lower leg with fat layer exposed Code(s): L97.929 - Non-pressure chronic ulcer of unspecified part of left lower leg with unspecified severity (4) Ulcer of left lower extremity with fat layer exposed Status: Chronic Current Visit: Yes Code(s): L97.922 - Non-pressure chronic ulcer of unspecified part of left lower leg with fat layer exposed (5) Venous insufficiency Status: Chronic Current Visit: Yes Code(s): I87.2 - Venous insufficiency (chronic) (peripheral) (6) Peripheral arterial disease Status: Chronic Current Visit: Yes Code(s): I73.9 - Peripheral vascular disease, unspecified History of Present Illness Date of Service: 11/30/18 Chief Complaint: Left lower leg ulcer for 5 months History of Wound: Ms. Narayanan is a 62yo who has been seen here at the wound center by Heather Borges CNP and Damon Mccarty CNP. She has been managed for left lower extremity wound. Unfortunately, due to scheduling conflicts the patient states that she has missed the last 6 weeks of appointments. The ulceration to the left lower anterior extremity appears bigger and deeper at this point with a large amount of slough, the patient has been using antibiotic ointment on this until last week when Santyl was started. Wound culture was positive for MRSA and she was started on doxycycline but has been having severe itching and increased erythema surrounding her wound. She denies any systemic signs of infection at this time. The patient otherwise denies any fever, chills, nausea, vomiting, shortness of breath, chest pain or pressure, palpitations, orthopnea, lower extremity edema, syncope or presyncopal episodes. Past Medical History Past Medical History: Chronic Problems (Last Reviewed 12/28/18 @ 13:14 by Juli Quarles) Traumatic ulcer of left lower leg with fat layer exposed (Chronic) Nonhealing ulcer of left lower extremity (Chronic) Ulcer of left lower extremity with fat layer exposed (Chronic) Venous insufficiency (Chronic) Tricompartmental knee joint arthritis (Chronic) Degeneration of lumbar intervertebral disc (Chronic) Asymptomatic postmenopausal status (Chronic) Impaired physical mobility (Chronic) stents in leg for neuropathy (Chronic) trigeminal neuralgia repair (Chronic) Anxiety (Chronic) Hypertension (Chronic) Dyspnea on exertion (Chronic) Peripheral arterial disease (Chronic) Peripheral neuropathy (Chronic) Localized swelling, mass or lump of neck (Chronic) Gallstone (Chronic) Goiter (Chronic) Tobacco abuse (Chronic) Surgical History: - Allergies/Adverse Reactions: Allergies No Known Allergies Allergy (Unverified 11/22/18 15:08) Home Medications: Ambulatory Orders Medication Instructions Recorded Tizanidine HCl [Zanaflex] 4 mg PO 4X/DAY 07/26/17 Aspirin [Aspirin, Baby] 81 mg PO DAILY@0800 07/27/17 Buprenorphine 1 patch TRANSDERMAL QWEEK #1 10/19/17 patch.tdwk lisinopril 5 mg tablet 10 mg PO BID tab 11/03/17 gabapentin 600 mg tablet 400 mg PO .qid tab 02/06/18 trazodone 50 mg tablet 50 mg PO QHS PRN #60 tab 07/18/18 levothyroxine 100 mcg capsule 100 mcg PO DAILY 08/15/18 ondansetron HCl 4 mg tablet 4 mg PO Q12H PRN tab 08/15/18 tramadol 50 mg tablet 50 mg PO Q12H tab 08/15/18 buPROPion tablets [Wellbutrin 50 mg 11/22/18 tablets] doxycycline monohydrate 100 mg 100 mg PO BID #20 cap 11/27/18 capsule - Family History Maternal Family History: Family History (Last Reviewed 10/05/18 @ 13:14 by Juli Quarles) Mother Heart disease Myocardial infarction Hypertension Father Cancer Heart Disease Paternal Family History: Family History (Last Reviewed 10/05/18 @ 13:14 by Juli Quarles) Mother Heart disease Myocardial infarction Hypertension Father Cancer No pertinent history Smoking Status: Current every day smoker Tobacco Use: Cigarettes Alcohol: None Drugs: None Review of Systems Constitutional: Denies: Chills, Fever, Weight Change Eyes: Denies: Pain, Vision Change HEENT: Denies: Difficulty Hearing, Difficulty Swallowing, Sinus Congestion Cardiovascular: Reports: Edema. Denies: Chest Pain, Palpitations Respiratory: Denies: Cough, Shortness of Breath Gastrointestinal: Denies: Diarrhea, Nausea, Vomiting Musculoskeletal: Reports: Leg Pain Skin: Reports: Rash, Wounds Hematologic/ Lymphatic: Denies: Easy Bruising, Easy Bleeding - Physical Exam Vital Signs Temp Pulse Resp BP 99.3 F H 82 18 169/73 H 11/30/18 14:01 11/30/18 14:01 11/30/18 14:01 11/30/18 14:01 General: Alert, Oriented x3, Cooperative, No apparent distress HEENT: Atraumatic, Normocephalic Oral: Moist Mucosa Lungs: Clear to auscultation Cardiovascular: Regular rate, Regular Rhythm Abdomen: Soft, Non Tender, Obese Extremities: Edema Skin: Ulcer/ Wound Wound Measurements and Assessment WC - Nurse 1 - General Ulcer Measurement Start: 11/22/18 14:50 Freq: Status: Active Protocol: Activity Type Activity Date Activity User E-Sign Co-Sign Detail Recorded Client Recorded Date Recorded By Document 11/30/18 14:01 AN [id number] 11/30/18 14:15 AN 11/30/18 14:01 Wound Center Nurse 1 [Ulcer Assessment] #4 L Lower Leg -Current Size (cm) - Length 5 -Current Size (cm) - Width 3.5 -Current Size (cm) - Depth 0.4 -Total Square Cm 17.5 -Classification - Thickness Full Thickness without Exposed Support Structure -Exudate Amt Medium -Exudate Type Serosanguineous -Wound Margin Distinct, Outline Attached -Granulation Amt Medium (34-66%) -Granulation Quality Pale [place] -Slough/Fibrin Yes -Necrosis Amt Medium (34-66%) -Necrotic Tissue Type Adherent Slough -Structure Exposed None/Limited to Skin Breakdown -Texture (Pilar-wound Skin Appearance) Assessed Localized Edema Rash -Moisture (Pilar-wound Skin Appearance Assessed ) -Color (Pilar-wound Skin Appearance) Assessed -Temperature (Pilar-wound Skin Hot Appearance) -Tenderness on Palpation (Pilar-wound Yes Skin Appearance) -Ulcer Cleansing Rinsed/ Irrigated with Saline -Foul Odor after Cleansing No -Anesthetic Used 4% Lidocaine Solution 5% Lidocaine Gel #3 R Heel -Current Size (cm) - Length 0.1 -Current Size (cm) - Width 0.1 -Current Size (cm) - Depth 0.1 -Total Square Cm 0.01 -Classification - Thickness Unclassifiable (Eschar Covered ) -Exudate Amt None Present -Wound Margin Flat & Intact -Granulation Amt None Present (0 %) -Necrosis Amt Large (67-100%) -Necrotic Tissue Type Eschar -Structure Exposed None/Limited to Skin Breakdown -Texture (Pilar-wound Skin Appearance) Assessed Callus -Moisture (Pilar-wound Skin Appearance Assessed ) -Color (Pilar-wound Skin Appearance) Assessed -Temperature (Pilar-wound Skin No Abnormality Appearance) (Pt Warm) -Tenderness on Palpation (Pilar-wound Yes Skin Appearance) -Ulcer Cleansing Rinsed/ Irrigated with Saline -Foul Odor after Cleansing No [Edema Assessment] -Right Calf (cm) 37 -Right Ankle (cm) 23 -Left Calf (cm) 45 -Left Ankle (cm) 22.7 WC - Nurse 2 - General Ulcer CM Notes Start: 11/22/18 14:50 Freq: Status: Active Protocol: Activity Type Activity Date Activity User E-Sign Co-Sign Detail Recorded Client Recorded Date Recorded By Document 11/30/18 15:21 DV [id number] 11/30/18 15:32 DV 11/30/18 15:21 Wound Center Nurse 2 [Procedure/Treatment] #4 L Lower Leg -Time 15:26 -Correct Patient Yes -Correct Side, Site, Position Yes -Correct Procedure Yes -Procedure Performed Yes -Type of Procedure Debridement -Clinical Debridement Subcutaneous -Post Debridement Size (cm) - Length 5.4 -Post Debridement Size (cm) - Width 3.5 -Post Debridement Size (cm) - Depth 0.3 -Total Square Cm 18.90 -Wound/Ulcer Outcome Not Healed -Ulcer Cleansing Rinsed/ Irrigated with Saline -Foul Odor after Cleansing No -Bioengineered Tissue No -Bleeding Controlled with Pressure -Offloading No -Treatment Response Procedure Tolerated Well #3 R Heel -Time 15:29 -Correct Patient Yes -Correct Side, Site, Position Yes -Procedure Performed No -Wound/Ulcer Outcome Not Healed [See Physician Procedure note for Specifics] Pain Scale: 0-10 Numeric [Pain] -Is Patient Pain Free? Yes Psych/Mental Status: Normal Affect, Appropriate Debridement Note Post-Debridement Measurements/Treatment WC - Nurse 2 - General Ulcer CM Notes Start: 11/22/18 14:50 Freq: Status: Active Protocol: Activity Type Activity Date Activity User E-Sign Co-Sign Detail Recorded Client Recorded Date Recorded By Document 11/22/18 16:29 DV [id number] 11/22/18 16:36 DV Document 11/30/18 15:21 DV [id number] 11/30/18 15:32 DV 11/22/18 11/30/18 16:29 15:21 Wound Center Nurse 2 #4 L Lower Leg -Time 16:31 15:26 -Correct Patient Yes Yes -Correct Side, Site, Position Yes Yes -Correct Procedure Yes Yes -Procedure Performed Yes Yes -Type of Procedure Debridement Debridement -Clinical Debridement Subcutaneous Subcutaneous -Post Debridement Size (cm) - Length 5.2 5.4 -Post Debridement Size (cm) - Width 3.2 3.5 -Post Debridement Size (cm) - Depth 0.6 0.3 -Total Square Cm 16.64 18.90 -Wound/Ulcer Outcome Not Healed Not Healed -Ulcer Cleansing Rinsed/ Rinsed/ Irrigated with Irrigated with Saline Saline -Foul Odor after Cleansing No No -Bioengineered Tissue No No -Bleeding Controlled with Pressure Pressure -Offloading No No -Treatment Response Procedure Procedure Tolerated Well Tolerated Well #3 R Heel -Time 16:32 15:29 -Correct Patient Yes Yes -Correct Side, Site, Position Yes Yes -Procedure Performed No No -Post Debridement Size (cm) - Length 1.5 -Post Debridement Size (cm) - Width 0.6 -Post Debridement Size (cm) - Depth 0.1 -Total Square Cm 0.90 -Wound/Ulcer Outcome Not Healed Not Healed -Ulcer Cleansing Rinsed/ Irrigated with Saline -Foul Odor after Cleansing No -Bioengineered Tissue No Pain Scale: 0-10 Numeric Is Patient Pain Free? Yes Wound debrided: left lower leg Laterality: Left Type of Debridement: Excisional debridement Anesthesia Used: 4% Lidocaine Solution, 5% Lidocaine Gel Depth: Down to and including healthy tissue, in the subcutaneous layer Percentage of wound debrided: 100 Instrument Used: 5mm curette Tissue Removed: yellow slough, devitalized tissue Severity: Fat Layer Exposed Amount of bleeding with debridement: Mild Bleeding Controlled with: Compression and gauze Patient tolerated procedure well - Additional Wound Wound debrided: right heel Laterality: Right Operative Diagnosis: no debridement completed - pt. refused Assessment/Plan Active Problems (Last Reviewed 10/05/18 @ 13:14 by Juli Quarles) Traumatic ulcer of left lower leg with fat layer exposed (Chronic) MRSA (methicillin resistant Staphylococcus aureus) infection (Acute) left lower leg Nonhealing ulcer of left lower extremity (Chronic) Ulcer of left lower extremity with fat layer exposed (Chronic) Venous insufficiency (Chronic) Peripheral arterial disease (Chronic) Assessment: Left lower extremity ulcer suspect mixed venous and arterial component with traumatic insult as initial cause. Peripheral arterial disease. Bilateral lower extremity edema. Right heel blister now open ulcer with adherent slough, patient refuses debridement Plan: The patient was seen and examined at the wound center today and was updated on the plan of care. A subcutaneous debridement was performed today. The patient tolerated the procedure well. The patients wound care will consist of: apply santyl to both ulcerations daily and cover with gauze. Double tubigrips for compression. She was advised to discontinue the doxycycline and was given a prescription for ciprofloxacin to start. Patient educated on the importance of diet on wound healing and instructed to increase protein and vitamin C intake. Patient verbalized understanding. Patient will follow up at wound healing center in one week or sooner if needed. Educated on the importance of following up and not missing her wound center appts.
== END 2018-12-06 23:59 ==
LOC: WC 13:45
PROVIDERS: Family Provider Internal Medicine; PCP Internal Medicine; Referring Provider Nurse Practitioner; Visit Provider Nurse Practitioner
DX: I73.9 Peripheral vascular disease, unspecified (principal); L97.822 Non-pressure chronic ulcer of other part of left lower leg with fat layer exposed; E04.9 Nontoxic goiter, unspecified; G62.9 Polyneuropathy, unspecified; Z79.899 Other long term (current) drug therapy; Z79.82 Long term (current) use of aspirin; F17.210 Nicotine dependence, cigarettes, uncomplicated
CPT/HCPCS: 11042; 87070; 87075; 87077; 87186; 87205; 87640; 99213; G0463

== ENCOUNTER → 2018-12-28 16:58 | Outpatient (CLI) | payer MEDICARE, SELFPAY ==
[2018-12-28 16:58] VITALS: BMI 36.1
[2018-12-28 17:16] LABS: Absolute Lymphocyte Count 1.98 X10^3/ul (0.83-4.51); Absolute Neutrophil Count 7.7 X10^3/uL (2.0-7.7); Basophil# 0.05 X10^3/uL; Basophil% 0.5 % (0-1); Eosinophil# 0.13 X10^3/uL; Eosinophils% 1.2 % (0-5); Hematocrit 36.9 % (37-47); Hemoglobin 11.5 g/dl (12.0-15.0); Lymphocyte # 1.98 X10^3/ul (4.0); Lymphocyte % 18.7 % (19-41); Mean Corp Hgb Conc 31.2 g/gl (32-36); Mean Corpuscular Hgb 28.6 pg (27.0-32.0); Mean Corpuscular Volume 91.8 fL (81-99); Mean Platelet Vol. 8.9 fl (6.2-12.0); Monocyte# 0.78 X10^3/uL; Monocyte% 7.4 % (0-10); Neutrophil # 7.65 X10^3/uL (2.7-7.7); Platelet Count 293 K/mm3 (150-450); RBC Distribution Width CV 18.5 % (11.6-14.6); RBC Distribution Width SD 60.5 fl (35.1-43.9); Red Blood Count 4.02 M/mm3 (4.2-5.4); White Blood Count 10.6 K/mm3 (4.4-11.0)
[2018-12-28 17:17] LABS: POSITIVE COUNT NO; POSITIVE DIFFERENTIAL NO; POSITIVE MORPHOLOGY NO
[2018-12-28 17:48] LABS: ALB/GLOB Ratio 0.6 RATIO (0.9-2.4); AST(SGOT) 24 U/L (15-37); Alanine Aminotransfer ALT/SGPT 15 U/L (13-56); Albumin, Serum 2.9 g/dL (3.2-5.0); Alkaline Phosphatase 106 U/L (45-117); Anion Gap 5 (5-15); BUN 9 mg/dL (7-18); BUN/Creat Ratio 15.9 RATIO (10-20); Calcium,Total 8.1 mg/dL (8.5-10.1); Chloride 107 mmol/L (98-107); Cholesterol 132 mg/dL (200); Creatinine, Serum 0.57 mg/dL (0.55-1.02); EST Glomerular Filtration Rate 115 mL/min (>60); Est Glom Filt Rate - Afr Amer 139 mL/min (>60); Globulin 4.8 g/dL (2.2-4.2); Glucose 86 mg/dL (74-106); High Density Lipoprotein 45 mg/dL; Potassium 4.4 mmol/L (3.5-5.1); Protein, Total 7.7 g/dL (6.4-8.2); Sodium Level 137 mmol/L (136-145); T4 Free Direct 0.71 ng/dL (0.76-1.46); Triglycerides 128 mg/dL; Very Low Density Lipoprotein 26 mg/dL (5-40)
== END ==
PROVIDERS: Family Provider Internal Medicine; PCP Internal Medicine; Referring Provider Nurse Practitioner Family; Visit Provider Nurse Practitioner Family
DX: I10 Essential (primary) hypertension (principal); E04.9 Nontoxic goiter, unspecified
CPT/HCPCS: 36415; 80053; 80061; 84439; 84443; 85025

== ENCOUNTER 2019-01-04 14:30 | Outpatient (RCR) | payer MEDICARE, SELFPAY ==
[2018-12-07 00:47] VITALS: BP 169/73; PULSE 82; RESP 18; TEMP 37.4
[2018-12-07 15:08] VITALS: BP 103/60; PULSE 82; RESP 18; TEMP 37.7; BMI 35.4
--- NOTE | 2018-12-07 19:02 | PCM.WC.PN ---
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 Current Visit: Yes Code(s): L97.922 - Non-pressure chronic ulcer of unspecified part of left lower leg with fat layer exposed (2) Nonhealing ulcer of left lower extremity Status: Chronic Current Visit: Yes Qualifiers: Non-pressure ulcer stage: with fat layer exposed Code(s): L97.929 - Non-pressure chronic ulcer of unspecified part of left lower leg with unspecified severity (3) Ulcer of right heel Status: Chronic Current Visit: Yes Qualifiers: Non-pressure ulcer stage: with fat layer exposed Qualified Code(s): L97.412 - Non-pressure chronic ulcer of right heel and midfoot with fat layer exposed Code(s): L97.419 - Non-pressure chronic ulcer of right heel and midfoot with unspecified severity (4) Ulcer of left lower extremity with fat layer exposed Status: Chronic Current Visit: Yes Code(s): L97.922 - Non-pressure chronic ulcer of unspecified part of left lower leg with fat layer exposed Type of Wound Date of Service: 12/07/18 Chief Complaint: Left lower leg ulcer for 5 months History of Wound: Ms. Narayanan is a 62yo who has been seen here at the wound center by Heather Borges CNP and Damon Chu CNP. She has been managed for left lower extremity wound. Unfortunately, due to scheduling conflicts the patient states that she has missed the last 6 weeks of appointments. The ulceration to the left lower anterior extremity appears bigger and deeper at this point with a large amount of slough, the patient has been using antibiotic ointment on this until last week when Santyl was started. Wound culture was positive for MRSA and she was started on doxycycline but has been having severe itching and increased erythema surrounding her wound. She denies any systemic signs of infection at this time. The patient otherwise denies any fever, chills, nausea, vomiting, shortness of breath, chest pain or pressure, palpitations, orthopnea, lower extremity edema, syncope or presyncopal episodes. Progress of Wound: Olivia is here for follow up of nonhealing ulcers of her left lower extremity and right heel. There is very little improvement. Base of left lower extremity ulcer still has significant thick yellow fibrous slough and has been traeted previously with 4 puraply applications. Ulcer of right heel with some yellow slough. She has been using Santyl to the left lower extremity ulcer with changes daily. She completed ciprofloxacin for treatment of positive wound cultures but requests a longer course due to continued erythema and pain. - Physical Exam Vital Signs Temp Pulse Resp BP 99.8 F H 82 18 103/60 12/07/18 15:08 12/07/18 15:08 12/07/18 15:08 12/07/18 15:08 General: Alert, Oriented x3, Cooperative, No apparent distress HEENT: Atraumatic, Normocephalic Oral: Moist Mucosa Abdomen: Obese Extremities: Edema Skin: Ulcer/ Wound Wound Measurements and Assessment WC - Nurse 1 - General Ulcer Measurement Start: 12/07/18 15:08 Freq: Status: Active Protocol: Activity Type Activity Date Activity User E-Sign Co-Sign Detail Recorded Client Recorded Date Recorded By Document 12/07/18 15:08 VA [id number] 12/07/18 15:19 VA 12/07/18 15:08 Wound Center Nurse 1 [Ulcer Assessment] #4 L Lower Leg -Combined with other wound No -Current Size (cm) - Length 5.4 -Current Size (cm) - Width 4 -Current Size (cm) - Depth 0.2 -Total Square Cm 21.6 -Photo Taken No -Tunneling No -Undermining/Tunneling No -Exudate Amt Medium -Exudate Type Serosanguineous -Wound Margin Thickened & Rolled Under -Granulation Amt None Present (0 %) -Slough/Fibrin Yes -Necrosis Amt Large (67-100%) -Necrotic Tissue Type Adherent Slough -Structure Exposed N/A -Texture (Pilar-wound Skin Appearance) Assessed -Moisture (Pilar-wound Skin Appearance Assessed ) -Color (Pilar-wound Skin Appearance) Erythema -Temperature (Pilar-wound Skin No Abnormality Appearance) (Pt Warm) -Tenderness on Palpation (Pilar-wound No Skin Appearance) -Ulcer Cleansing Wound Cleanser -Foul Odor after Cleansing No -Anesthetic Used 5% Lidocaine Gel #3 R Heel -Combined with other wound No -Current Size (cm) - Length 0.7 -Current Size (cm) - Width 0.7 -Current Size (cm) - Depth 0.1 -Total Square Cm 0.49 -Photo Taken No -Tunneling No -Undermining/Tunneling No -Circular Undermining No -Exudate Amt None Present -Granulation Amt Medium (34-66%) -Granulation Quality [place] -Slough/Fibrin Yes -Necrosis Amt Medium (34-66%) -Necrotic Tissue Type Adherent Slough -Structure Exposed N/A -Texture (Pilar-wound Skin Appearance) Assessed -Moisture (Pilar-wound Skin Appearance Assessed ) -Color (Pilar-wound Skin Appearance) Assessed Erythema -Temperature (Pilar-wound Skin No Abnormality Appearance) (Pt Warm) -Tenderness on Palpation (Pilar-wound No Skin Appearance) -Ulcer Cleansing Wound Cleanser -Foul Odor after Cleansing No -Anesthetic Used 5% Lidocaine Gel [Edema Assessment] -Lower Limb Edema Present Yes -Right Calf (cm) 40 -Right Ankle (cm) 24 -Left Calf (cm) 45.5 -Left Ankle (cm) 21.7 WC - Nurse 2 - General Ulcer CM Notes Start: 12/07/18 15:08 Freq: Status: Active Protocol: Activity Type Activity Date Activity User E-Sign Co-Sign Detail Recorded Client Recorded Date Recorded By Document 12/07/18 16:30 DV [id number] 12/07/18 16:33 DV 12/07/18 16:30 Wound Center Nurse 2 [Procedure/Treatment] #4 L Lower Leg -Time 16:32 -Correct Patient Yes -Correct Side, Site, Position Yes -Correct Procedure Yes -Procedure Performed Yes -Type of Procedure Debridement -Clinical Debridement Subcutaneous -Post Debridement Size (cm) - Length 5.3 -Post Debridement Size (cm) - Width 3.6 -Post Debridement Size (cm) - Depth 0.2 -Total Square Cm 19.08 -Wound/Ulcer Outcome Not Healed -Ulcer Cleansing Rinsed/ Irrigated with Saline -Foul Odor after Cleansing No -Bioengineered Tissue No -Bleeding Controlled with Pressure -Offloading No -Treatment Response Procedure Tolerated Well #3 R Heel -Time 16:32 -Correct Patient Yes -Correct Side, Site, Position Yes -Correct Procedure Yes -Procedure Performed Yes -Type of Procedure Debridement -Clinical Debridement Subcutaneous -Post Debridement Size (cm) - Length 0.7 -Post Debridement Size (cm) - Width 0.6 -Post Debridement Size (cm) - Depth 0.1 -Total Square Cm 0.42 -Wound/Ulcer Outcome Not Healed -Ulcer Cleansing Rinsed/ Irrigated with Saline -Foul Odor after Cleansing No -Bioengineered Tissue No -Bleeding Controlled with Pressure -Offloading No -Treatment Response Procedure Tolerated Well [See Physician Procedure note for Specifics] Pain Scale: 0-10 Numeric [Pain] -Is Patient Pain Free? Yes Psych/Mental Status: Normal Affect, Appropriate Debridement Note Post-Debridement Measurements/Treatment WC - Nurse 2 - General Ulcer CM Notes Start: 12/07/18 15:08 Freq: Status: Active Protocol: Activity Type Activity Date Activity User E-Sign Co-Sign Detail Recorded Client Recorded Date Recorded By Document 12/07/18 16:30 DV [id number] 12/07/18 16:33 DV 12/07/18 16:30 Wound Center Nurse 2 #4 L Lower Leg -Time 16:32 -Correct Patient Yes -Correct Side, Site, Position Yes -Correct Procedure Yes -Procedure Performed Yes -Type of Procedure Debridement -Clinical Debridement Subcutaneous -Post Debridement Size (cm) - Length 5.3 -Post Debridement Size (cm) - Width 3.6 -Post Debridement Size (cm) - Depth 0.2 -Total Square Cm 19.08 -Wound/Ulcer Outcome Not Healed -Ulcer Cleansing Rinsed/ Irrigated with Saline -Foul Odor after Cleansing No -Bioengineered Tissue No -Bleeding Controlled with Pressure -Offloading No -Treatment Response Procedure Tolerated Well #3 R Heel -Time 16:32 -Correct Patient Yes -Correct Side, Site, Position Yes -Correct Procedure Yes -Procedure Performed Yes -Type of Procedure Debridement -Clinical Debridement Subcutaneous -Post Debridement Size (cm) - Length 0.7 -Post Debridement Size (cm) - Width 0.6 -Post Debridement Size (cm) - Depth 0.1 -Total Square Cm 0.42 -Wound/Ulcer Outcome Not Healed -Ulcer Cleansing Rinsed/ Irrigated with Saline -Foul Odor after Cleansing No -Bioengineered Tissue No -Bleeding Controlled with Pressure -Offloading No -Treatment Response Procedure Tolerated Well Pain Scale: 0-10 Numeric Is Patient Pain Free? Yes Wound debrided: left lower leg Laterality: Left Type of Debridement: Excisional debridement Anesthesia Used: 4% Lidocaine Solution, 5% Lidocaine Gel Depth: Down to and including healthy tissue, in the subcutaneous layer Percentage of wound debrided: 100 Instrument Used: 5mm curette Tissue Removed: yellow slough, devitalized tissue Severity: Fat Layer Exposed Amount of bleeding with debridement: Mild Bleeding Controlled with: Compression and gauze Patient tolerated procedure well - Additional Wound Wound debrided: right heel Laterality: Right Type of Debridement: Excisional debridement Anesthesia Used: 4% Lidocaine Solution, 5% Lidocaine Gel Depth: Down to and including healthy tissue, in the subcutaneous layer Percentage of wound debrided: 100 Instrument Used: 5mm curette Tissue Removed: yellow slough, devitalized tissue Severity: Fat Layer Exposed Amount of bleeding with debridement: Mild Bleeding Controlled with: Compression and gauze Patient tolerated procedure: Patient tolerated procedure well Assessment/Plan Active Problems (Last Reviewed 10/05/18 @ 13:14 by Juli Quarles) Traumatic ulcer of left lower leg with fat layer exposed (Chronic) Nonhealing ulcer of left lower extremity (Chronic) Ulcer of right heel (Chronic) Ulcer of left lower extremity with fat layer exposed (Chronic) Assessment: Left lower extremity ulcer suspect mixed venous and arterial component with traumatic insult as initial cause. Peripheral arterial disease. Bilateral lower extremity edema. Right heel blister now open ulcer with adherent slough Plan: The patient was seen and examined at the wound center today and was updated on the plan of care. A subcutaneous debridement was performed today. The patient tolerated the procedure well. Will continue to have her apply santyl to both ulcerations daily and cover with adaptic and gauze. Double layer tubigrips for compression. Ciprofloxacin was extended for another 10 days. Due to the length of time it is taking for her wound to heal and her co-morbidities she would benefit from advanced wound care treatment to help heal her wound such as theraskin or Apligraf. Patient educated on the importance of diet on wound healing and instructed to increase protein and vitamin C intake. Patient verbalized understanding. Patient will follow up at wound healing center in one week or sooner if needed. Educated on the importance of following up and not missing her wound center appts.
[2018-12-21 15:48] VITALS: BP 179/83; PULSE 79; RESP 18; TEMP 37.2; BMI 35.4
--- NOTE | 2018-12-21 18:23 | PN.PCM_ITS ---
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 Current Visit: Yes Code(s): L97.922 - Non-pressure chronic ulcer of unspecified part of left lower leg with fat layer exposed (2) Nonhealing ulcer of left lower extremity Status: Chronic Current Visit: Yes Qualifiers: Non-pressure ulcer stage: with fat layer exposed Code(s): L97.929 - Non-pressure chronic ulcer of unspecified part of left lower leg with unspecified severity (3) Ulcer of right heel Status: Resolved Current Visit: Yes Qualifiers: Non-pressure ulcer stage: with fat layer exposed Qualified Code(s): L97.412 - Non-pressure chronic ulcer of right heel and midfoot with fat layer exposed Code(s): L97.419 - Non-pressure chronic ulcer of right heel and midfoot with unspecified severity (4) Ulcer of left lower extremity with fat layer exposed Status: Chronic Current Visit: Yes Code(s): L97.922 - Non-pressure chronic ulcer of unspecified part of left lower leg with fat layer exposed Type of Wound Date of Service: 12/21/18 Chief Complaint: Left lower leg ulcer for 5 months History of Wound: Ms. Narayanan is a 62yo who has been seen here at the wound center by Heather Borges CNP and Damon Chu CNP. She has been managed for left lower extremity wound. Unfortunately, due to scheduling conflicts the patient states that she has missed the last 6 weeks of appointments. The ulceration to the left lower anterior extremity appears bigger and deeper at this point with a large amount of slough, the patient has been using antibiotic ointment on this until last week when Santyl was started. Wound culture was positive for MRSA and she was started on doxycycline but has been having severe itching and increased erythema surrounding her wound. She denies any systemic signs of infection at this time. The patient otherwise denies any fever, chills, nausea, vomiting, shortness of breath, chest pain or pressure, palpitations, orthopnea, lower extremity edema, syncope or presyncopal episodes. Progress of Wound: Olivia is here for follow up of nonhealing ulcers of her left lower extremity and right heel. There is very little improvement to her ulcer of her left lower extremity. The right heel is healed. Base of left lower extremity ulcer still has significant thick yellow fibrous slough and has been treated previously with 4 puraply applications. She has been using Santyl to the left lower extremity ulcer with changes daily. She completed ciprofloxacin for treatment of positive wound cultures but has increased erythema and drainage of left lower leg. - Physical Exam Vital Signs Temp Pulse Resp BP 98.9 F 79 18 179/83 H 12/21/18 15:48 12/21/18 15:48 12/21/18 15:48 12/21/18 15:48 General: Alert, Oriented x3, Cooperative, No apparent distress HEENT: Atraumatic, Normocephalic Oral: Moist Mucosa Abdomen: Obese Extremities: Edema Skin: Ulcer/ Wound Wound Measurements and Assessment WC - Nurse 1 - General Ulcer Measurement Start: 12/07/18 15:08 Freq: Status: Active Protocol: Activity Type Activity Date Activity User E-Sign Co-Sign Detail Recorded Client Recorded Date Recorded By Document 12/21/18 15:48 AN [id number] 12/21/18 16:00 AN 12/21/18 15:48 Wound Center Nurse 1 [Ulcer Assessment] #4 L Lower Leg -Combined with other wound No -Current Size (cm) - Length 5 -Current Size (cm) - Width 3.2 -Current Size (cm) - Depth 0.3 -Total Square Cm 16.0 -Date of Last Picture (Recall this 12/21/18 field) -Photo Taken Yes -Epithelialization None Present -Tunneling No -Undermining/Tunneling No -Circular Undermining No -Exudate Amt Small -Exudate Type Serosanguineous -Wound Margin Thickened -Granulation Amt Small (1-33%) -Granulation Quality [place] -Slough/Fibrin Yes -Necrosis Amt Large (67-100%) -Necrotic Tissue Type Adherent Slough -Texture (Pilar-wound Skin Appearance) Scarring -Moisture (Pilar-wound Skin Appearance Assessed ) -Color (Pilar-wound Skin Appearance) Erythema -Temperature (Pilar-wound Skin Hot Appearance) -Tenderness on Palpation (Pilar-wound Yes Skin Appearance) -Ulcer Cleansing Rinsed/ Irrigated with Saline -Foul Odor after Cleansing No -Anesthetic Used 5% Lidocaine Gel #3 R Heel -Combined with other wound No -Current Size (cm) - Length 0.1 -Current Size (cm) - Width 0.1 -Current Size (cm) - Depth 0.1 -Total Square Cm 0.01 -Date of Last Picture (Recall this 12/21/18 field) -Photo Taken Yes -Epithelialization Large 67-100% -Tunneling No -Undermining/Tunneling No -Circular Undermining No -Texture (Pilar-wound Skin Appearance) Scarring -Moisture (Pilar-wound Skin Appearance Dry/Scaly ) -Temperature (Pilar-wound Skin No Abnormality Appearance) (Pt Warm) -Tenderness on Palpation (Pilar-wound No Skin Appearance) -Ulcer Cleansing Rinsed/ Irrigated with Saline -Foul Odor after Cleansing No [Edema Assessment] -Lower Limb Edema Present Yes -Right Calf (cm) 36.5 -Right Ankle (cm) 22.5 -Left Calf (cm) 41.3 -Left Ankle (cm) 21.5 WC - Nurse 2 - General Ulcer CM Notes Start: 12/07/18 15:08 Freq: Status: Active Protocol: Activity Type Activity Date Activity User E-Sign Co-Sign Detail Recorded Client Recorded Date Recorded By Document 12/21/18 16:20 DV [id number] 12/21/18 16:31 DV 12/21/18 16:20 Wound Center Nurse 2 [Procedure/Treatment] #4 L Lower Leg -Post Debridement Size (cm) - Length 5.2 -Post Debridement Size (cm) - Width 3.7 -Post Debridement Size (cm) - Depth 0.3 -Total Square Cm 19.24 -Wound/Ulcer Outcome Not Healed -Ulcer Cleansing Rinsed/ Irrigated with Saline -Foul Odor after Cleansing No -Bioengineered Tissue No -Bleeding Controlled with Pressure -Offloading No -Treatment Response Procedure Tolerated Well #3 R Heel -Time 16:24 -Correct Patient Yes -Correct Side, Site, Position Yes -Procedure Performed No -Post Debridement Size (cm) - Length 0 -Post Debridement Size (cm) - Width 0 -Post Debridement Size (cm) - Depth 0 -Total Square Cm 0 -Wound/Ulcer Outcome Healed- Epithelialized [See Physician Procedure note for Specifics] Pain Scale: 0-10 Numeric [Pain] -Is Patient Pain Free? Yes Psych/Mental Status: Normal Affect, Appropriate Debridement Note Post-Debridement Measurements/Treatment ANUP - Nurse 2 - General Ulcer CM Notes Start: 12/07/18 15:08 Freq: Status: Active Protocol: Activity Type Activity Date Activity User E-Sign Co-Sign Detail Recorded Client Recorded Date Recorded By Document 12/07/18 16:30 DV [id number] 12/07/18 16:33 DV Document 12/21/18 16:20 DV [id number] 12/21/18 16:31 DV 12/07/18 12/21/18 16:30 16:20 Wound Center Nurse 2 #4 L Lower Leg -Time 16:32 -Correct Patient Yes -Correct Side, Site, Position Yes -Correct Procedure Yes -Procedure Performed Yes -Type of Procedure Debridement -Clinical Debridement Subcutaneous -Post Debridement Size (cm) - Length 5.3 5.2 -Post Debridement Size (cm) - Width 3.6 3.7 -Post Debridement Size (cm) - Depth 0.2 0.3 -Total Square Cm 19.08 19.24 -Wound/Ulcer Outcome Not Healed Not Healed -Ulcer Cleansing Rinsed/ Rinsed/ Irrigated with Irrigated with Saline Saline -Foul Odor after Cleansing No No -Bioengineered Tissue No No -Bleeding Controlled with Pressure Pressure -Offloading No No -Treatment Response Procedure Procedure Tolerated Well Tolerated Well #3 R Heel -Time 16:32 16:24 -Correct Patient Yes Yes -Correct Side, Site, Position Yes Yes -Correct Procedure Yes -Procedure Performed Yes No -Type of Procedure Debridement -Clinical Debridement Subcutaneous -Post Debridement Size (cm) - Length 0.7 0 -Post Debridement Size (cm) - Width 0.6 0 -Post Debridement Size (cm) - Depth 0.1 0 -Total Square Cm 0.42 0 -Wound/Ulcer Outcome Not Healed Healed- Epithelialized -Ulcer Cleansing Rinsed/ Irrigated with Saline -Foul Odor after Cleansing No -Bioengineered Tissue No -Bleeding Controlled with Pressure -Offloading No -Treatment Response Procedure Tolerated Well Pain Scale: 0-10 Numeric Is Patient Pain Free? Yes Yes Wound debrided: right heel Laterality: Right No debridement was completed today - ulcer is healed - Additional Wound Wound debrided: left lower extremity Laterality: Left Type of Debridement: Excisional debridement Anesthesia Used: 4% Lidocaine Solution, 5% Lidocaine Gel Depth: Down to and including healthy tissue, in the subcutaneous layer Percentage of wound debrided: 100 Instrument Used: 5mm curette Tissue Removed: yellow slough, devitalized tissue Severity: Fat Layer Exposed Amount of bleeding with debridement: Mild Bleeding Controlled with: Compression and gauze Patient tolerated procedure: Patient tolerated procedure well Assessment/Plan Active Problems (Last Reviewed 10/05/18 @ 13:14 by Juli Quarles) Traumatic ulcer of left lower leg with fat layer exposed (Chronic) Nonhealing ulcer of left lower extremity (Chronic) Ulcer of left lower extremity with fat layer exposed (Chronic) Assessment: Left lower extremity ulcer suspect mixed venous and arterial component with traumatic insult as initial cause. Peripheral arterial disease. Bilateral lower extremity edema. Right heel blister now open ulcer with adherent slough Plan: The patient was seen and examined at the wound center today and was updated on the plan of care. A subcutaneous debridement was performed today of the left lower extremity. The patient tolerated the procedure well. A wound culture was taken today and will treat based on the results. Will continue to have her apply santyl daily and cover with adaptic and gauze. Double layer tubigrips for compression. Due to the length of time it is taking for her wound to heal and her co-morbidities she would benefit from advanced wound care treatment to help heal her wound such as theraskin or Apligraf. Patient educated on the importance of diet on wound healing and instructed to increase protein and vitamin C intake. Patient verbalized understanding. Patient will follow up at wound healing center in one week or sooner if needed. Educated on the importance of following up and not missing her wound center appts. F/U in 1 week.
[2018-12-21 18:56] LABS: M R Staph aureus DNA By PCR Negative (Negative); Probe Check PASS; Specimen Processing Control PASS; Staph aureus DNA By PCR NEGATIVE (Negative)
[2018-12-28 15:48] VITALS: BP 144/85; PULSE 83; RESP 20; TEMP 36.9; BMI 35.4
--- NOTE | 2018-12-28 18:16 | PCM.WC.PN ---
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 Current Visit: Yes Code(s): L97.922 - Non-pressure chronic ulcer of unspecified part of left lower leg with fat layer exposed (2) Nonhealing ulcer of left lower extremity Status: Chronic Current Visit: Yes Qualifiers: Non-pressure ulcer stage: with fat layer exposed Code(s): L97.929 - Non-pressure chronic ulcer of unspecified part of left lower leg with unspecified severity (3) Ulcer of right heel Status: Resolved Current Visit: Yes Qualifiers: Non-pressure ulcer stage: with fat layer exposed Qualified Code(s): L97.412 - Non-pressure chronic ulcer of right heel and midfoot with fat layer exposed Code(s): L97.419 - Non-pressure chronic ulcer of right heel and midfoot with unspecified severity (4) Ulcer of left lower extremity with fat layer exposed Status: Chronic Current Visit: Yes Code(s): L97.922 - Non-pressure chronic ulcer of unspecified part of left lower leg with fat layer exposed Type of Wound Date of Service: 12/28/18 Chief Complaint: Left lower leg ulcer for 5 months History of Wound: Ms. Narayanan is a 62yo who has been seen here at the wound center by Heather Borges CNP and Damon Chu CNP. She has been managed for left lower extremity wound. Unfortunately, due to scheduling conflicts the patient states that she has missed the last 6 weeks of appointments. The ulceration to the left lower anterior extremity appears bigger and deeper at this point with a large amount of slough, the patient has been using antibiotic ointment on this until last week when Santyl was started. Wound culture was positive for MRSA and she was started on doxycycline but has been having severe itching and increased erythema surrounding her wound. She denies any systemic signs of infection at this time. The patient otherwise denies any fever, chills, nausea, vomiting, shortness of breath, chest pain or pressure, palpitations, orthopnea, lower extremity edema, syncope or presyncopal episodes. Progress of Wound: Olivia is here for follow up of nonhealing ulcers of her left lower extremity. There is very little improvement to her ulcer of her left lower extremity. Base of left lower extremity ulcer still does not show granulation. She has been treated previously with 4 puraply applications. She has been using Santyl to the left lower extremity ulcer with changes daily but there is very little granulation. - Physical Exam Vital Signs Temp Pulse Resp BP 98.4 F 83 20 H 144/85 H 12/28/18 15:48 12/28/18 15:48 12/28/18 15:48 12/28/18 15:48 General: Alert, Oriented x3, Cooperative, No apparent distress HEENT: Atraumatic, Normocephalic Oral: Moist Mucosa Abdomen: Obese Extremities: Edema Skin: Ulcer/ Wound Wound Measurements and Assessment WC - Nurse 1 - General Ulcer Measurement Start: 12/07/18 15:08 Freq: Status: Active Protocol: Activity Type Activity Date Activity User E-Sign Co-Sign Detail Recorded Client Recorded Date Recorded By Document 12/28/18 15:48 [facility] [id number] 12/28/18 15:58 BMF 12/28/18 15:48 Wound Center Nurse 1 [Ulcer Assessment] #4 L Lower Leg -Combined with other wound No -Current Size (cm) - Length 4.8 -Current Size (cm) - Width 3.8 -Current Size (cm) - Depth 0.3 -Total Square Cm 18.24 -Photo Taken No -Epithelialization None Present -Tunneling No -Undermining/Tunneling No -Circular Undermining No -Exudate Amt Medium -Exudate Type Serosanguineous -Wound Margin Thickened -Granulation Amt Small (1-33%) -Granulation Quality [place] -Slough/Fibrin Yes -Necrosis Amt Large (67-100%) -Necrotic Tissue Type Adherent Slough -Texture (Pilar-wound Skin Appearance) Scarring -Moisture (Pilar-wound Skin Appearance Assessed ) -Color (Pilar-wound Skin Appearance) Assessed -Temperature (Pilar-wound Skin No Abnormality Appearance) (Pt Warm) -Tenderness on Palpation (Pilar-wound No Skin Appearance) -Ulcer Cleansing Rinsed/ Irrigated with Saline -Foul Odor after Cleansing No -Anesthetic Used 5% Lidocaine Gel [Edema Assessment] -Lower Limb Edema Present Yes -Left Calf (cm) 41.5 -Left Ankle (cm) 21.9 WC - Nurse 2 - General Ulcer CM Notes Start: 12/07/18 15:08 Freq: Status: Active Protocol: Activity Type Activity Date Activity User E-Sign Co-Sign Detail Recorded Client Recorded Date Recorded By Document 12/28/18 16:23 DV [id number] 12/28/18 16:29 DV 12/28/18 16:23 Wound Center Nurse 2 [Procedure/Treatment] #4 L Lower Leg -Time 16:23 -Correct Patient Yes -Correct Side, Site, Position Yes -Correct Procedure Yes -Procedure Performed Yes -Type of Procedure Debridement -Clinical Debridement Subcutaneous -Post Debridement Size (cm) - Length 5.0 -Post Debridement Size (cm) - Width 3.5 -Post Debridement Size (cm) - Depth 0.4 -Total Square Cm 17.50 -Wound/Ulcer Outcome Not Healed -Ulcer Cleansing Rinsed/ Irrigated with Saline -Foul Odor after Cleansing No -Bioengineered Tissue No -Bleeding Controlled with Pressure -Offloading No -Treatment Response Procedure Tolerated Well [See Physician Procedure note for Specifics] Pain Scale: 0-10 Numeric [Pain] -Is Patient Pain Free? Yes Psych/Mental Status: Normal Affect, Appropriate Debridement Note Post-Debridement Measurements/Treatment WC - Nurse 2 - General Ulcer CM Notes Start: 12/07/18 15:08 Freq: Status: Active Protocol: Activity Type Activity Date Activity User E-Sign Co-Sign Detail Recorded Client Recorded Date Recorded By Document 12/07/18 16:30 DV [id number] 12/07/18 16:33 DV Document 12/21/18 16:20 DV [id number] 12/21/18 16:31 DV Document 12/28/18 16:23 DV [id number] 12/28/18 16:29 DV 12/07/18 12/21/18 12/28/18 16:30 16:20 16:23 Wound Center Nurse 2 #4 L Lower Leg -Time 16:32 16:23 -Correct Patient Yes Yes -Correct Side, Site, Position Yes Yes -Correct Procedure Yes Yes -Procedure Performed Yes Yes -Type of Procedure Debridement Debridement -Clinical Debridement Subcutaneous Subcutaneous -Post Debridement Size (cm) - Length 5.3 5.2 5.0 -Post Debridement Size (cm) - Width 3.6 3.7 3.5 -Post Debridement Size (cm) - Depth 0.2 0.3 0.4 -Total Square Cm 19.08 19.24 17.50 -Wound/Ulcer Outcome Not Healed Not Healed Not Healed -Ulcer Cleansing Rinsed/ Rinsed/ Rinsed/ Irrigated with Irrigated with Irrigated with Saline Saline Saline -Foul Odor after Cleansing No No No -Bioengineered Tissue No No No -Bleeding Controlled with Pressure Pressure Pressure -Offloading No No No -Treatment Response Procedure Procedure Procedure Tolerated Well Tolerated Well Tolerated Well #3 R Heel -Time 16:32 16:24 -Correct Patient Yes Yes -Correct Side, Site, Position Yes Yes -Correct Procedure Yes -Procedure Performed Yes No -Type of Procedure Debridement -Clinical Debridement Subcutaneous -Post Debridement Size (cm) - Length 0.7 0 -Post Debridement Size (cm) - Width 0.6 0 -Post Debridement Size (cm) - Depth 0.1 0 -Total Square Cm 0.42 0 -Wound/Ulcer Outcome Not Healed Healed- Epithelialized -Ulcer Cleansing Rinsed/ Irrigated with Saline -Foul Odor after Cleansing No -Bioengineered Tissue No -Bleeding Controlled with Pressure -Offloading No -Treatment Response Procedure Tolerated Well Pain Scale: 0-10 Numeric Is Patient Pain Free? Yes Yes Yes Wound debrided: left lower leg Laterality: Left Type of Debridement: Excisional debridement Anesthesia Used: 4% Lidocaine Solution, 5% Lidocaine Gel Depth: Down to and including healthy tissue, in the subcutaneous layer Percentage of wound debrided: 100 Instrument Used: 5mm curette Tissue Removed: yellow slough, devitalized tissue Severity: Fat Layer Exposed Amount of bleeding with debridement: Mild Bleeding Controlled with: Compression and gauze Patient tolerated procedure well Assessment/Plan Active Problems (Last Reviewed 12/26/18 @ 13:12 by Juli Quarles) Traumatic ulcer of left lower leg with fat layer exposed (Chronic) Nonhealing ulcer of left lower extremity (Chronic) Ulcer of left lower extremity with fat layer exposed (Chronic) Assessment: Left lower extremity ulcer suspect mixed venous and arterial component with traumatic insult as initial cause. Peripheral arterial disease. Bilateral lower extremity edema. Right heel blister now open ulcer with adherent slough Plan: The patient was seen and examined at the wound center today and was updated on the plan of care. A subcutaneous debridement was performed today of the left lower extremity. The patient tolerated the procedure well. Will change her dressing to Triad cream and adaptic. She would benefit from application of a skin substitute such as theraskin to heal her wound. Continue double layer tubigrips for compression. Due to the length of time it is taking for her wound to heal and her co-morbidities she would benefit from advanced wound care treatment to help heal her wound such as theraskin or Apligraf. Patient educated on the importance of diet on wound healing and instructed to increase protein and vitamin C intake. Patient verbalized understanding. Patient will follow up at wound healing center in one week or sooner if needed. Educated on the importance of following up and not missing her wound center appts. F/U in 1 week.
== END 2019-01-06 23:59 ==
LOC: WC 14:30
PROVIDERS: Family Provider Internal Medicine; PCP Internal Medicine; Visit Provider Family Medicine
DX: I73.9 Peripheral vascular disease, unspecified (principal); L97.822 Non-pressure chronic ulcer of other part of left lower leg with fat layer exposed; F41.9 Anxiety disorder, unspecified; R60.0 Localized edema; Z86.14 Personal history of Methicillin resistant Staphylococcus aureus infection; L97.412 Non-pressure chronic ulcer of right heel and midfoot with fat layer exposed
CPT/HCPCS: 11042; 87070; 87075; 87205; 87640

== ENCOUNTER 2019-01-25 15:15 | Outpatient (RCR) | payer MEDICARE, SELFPAY ==
[2019-01-07 00:43] VITALS: BP 144/85; PULSE 83; RESP 20; TEMP 36.9; BMI 35.4
[2019-01-18 14:44] VITALS: BP 158/91; PULSE 98; RESP 20; TEMP 37; BMI 35.4
--- NOTE | 2019-01-18 17:04 | PCM.WC.PN ---
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 Current Visit: Yes Code(s): L97.922 - Non-pressure chronic ulcer of unspecified part of left lower leg with fat layer exposed (2) Nonhealing ulcer of left lower extremity Status: Chronic Current Visit: Yes Qualifiers: Non-pressure ulcer stage: with fat layer exposed Code(s): L97.929 - Non-pressure chronic ulcer of unspecified part of left lower leg with unspecified severity (3) Ulcer of left lower extremity with fat layer exposed Status: Chronic Current Visit: Yes Code(s): L97.922 - Non-pressure chronic ulcer of unspecified part of left lower leg with fat layer exposed (4) Venous insufficiency Status: Chronic Current Visit: Yes Code(s): I87.2 - Venous insufficiency (chronic) (peripheral) (5) Tobacco abuse Status: Chronic Current Visit: Yes Code(s): Z72.0 - Tobacco use Type of Wound Date of Service: 01/18/19 Chief Complaint: Left lower leg ulcer for 5 months History of Wound: Ms. Narayanan is a 62yo who has been seen here at the wound center by Heather Borges CNP and Damon Chu CNP. She has been managed for left lower extremity wound. Unfortunately, due to scheduling conflicts the patient states that she has missed the last 6 weeks of appointments. The ulceration to the left lower anterior extremity appears bigger and deeper at this point with a large amount of slough, the patient has been using antibiotic ointment on this until last week when Santyl was started. Wound culture was positive for MRSA and she was started on doxycycline but has been having severe itching and increased erythema surrounding her wound. She denies any systemic signs of infection at this time. The patient otherwise denies any fever, chills, nausea, vomiting, shortness of breath, chest pain or pressure, palpitations, orthopnea, lower extremity edema, syncope or presyncopal episodes. Progress of Wound: Olivia is here for follow up of nonhealing ulcer of her left lower extremity that was initially due to trauma but is complicated by venous insufficiency and has become a venous ulcer. There is improvement to her ulcer of her left lower extremity. She tolerated Santyl and there is some granulation to her wound bed. She has been treated previously with 4 puraply applications. She has been using Santyl to the left lower extremity ulcer with changes daily but there is very little granulation. - Physical Exam Vital Signs Temp Pulse Resp BP 98.6 F 98 20 H 158/91 H 01/18/19 14:44 01/18/19 14:44 01/18/19 14:44 01/18/19 14:44 General: Alert, Oriented x3, Cooperative, No apparent distress HEENT: Atraumatic, Normocephalic Oral: Moist Mucosa Abdomen: Obese Extremities: Edema Skin: Ulcer/ Wound Wound Measurements and Assessment WC - Nurse 1 - General Ulcer Measurement Start: 01/18/19 14:44 Freq: Status: Active Protocol: Activity Type Activity Date Activity User E-Sign Co-Sign Detail Recorded Client Recorded Date Recorded By Document 01/18/19 14:44 AN [id number] 01/18/19 14:52 AN 01/18/19 14:44 Wound Center Nurse 1 [Ulcer Assessment] #4 L Lower Leg -Current Size (cm) - Length 4.6 -Current Size (cm) - Width 3.0 -Current Size (cm) - Depth 0.3 -Total Square Cm 13.80 -Date of Last Picture (Recall this 01/18/19 field) -Photo Taken Yes -Classification - Thickness Full Thickness without Exposed Support Structure -Exudate Amt Medium -Exudate Type Serosanguineous -Wound Margin Distinct, Outline Attached -Granulation Amt Medium (34-66%) -Granulation Quality Red -Slough/Fibrin Yes -Necrosis Amt Medium (34-66%) -Necrotic Tissue Type Adherent Slough -Structure Exposed None/Limited to Skin Breakdown -Texture (Pilar-wound Skin Appearance) Assessed Localized Edema Rash -Moisture (Pilar-wound Skin Appearance Assessed ) -Color (Pilar-wound Skin Appearance) Assessed Erythema -Temperature (Pilar-wound Skin Hot Appearance) -Tenderness on Palpation (Pilar-wound Yes Skin Appearance) -Ulcer Cleansing Rinsed/ Irrigated with Saline -Foul Odor after Cleansing No -Anesthetic Used 5% Lidocaine Gel [Edema Assessment] -Left Calf (cm) 38.3 -Left Ankle (cm) 21.6 WC - Nurse 2 - General Ulcer CM Notes Start: 01/18/19 14:44 Freq: Status: Active Protocol: Activity Type Activity Date Activity User E-Sign Co-Sign Detail Recorded Client Recorded Date Recorded By Document 01/18/19 15:09 AN [id number] 01/18/19 15:25 AN 01/18/19 15:09 Wound Center Nurse 2 [Procedure/Treatment] #4 L Lower Leg -Time 15:09 -Correct Patient Yes -Correct Side, Site, Position Yes -Correct Procedure Yes -Procedure Performed Yes -Type of Procedure Debridement -Clinical Debridement Subcutaneous -Post Debridement Size (cm) - Length 4.2 -Post Debridement Size (cm) - Width 2.9 -Post Debridement Size (cm) - Depth 0.2 -Total Square Cm 12.18 -Wound/Ulcer Outcome Not Healed -Ulcer Cleansing Rinsed/ Irrigated with Saline -Foul Odor after Cleansing No -Bioengineered Tissue Yes -Type of bioengineered Tissue EPIFIX -Expiration Date 05/09/23 -Product Lot Number [id number] -Percent Used 100 -Saline Lot Number [id number] -Topical Lidocaine (%) 5 -Bleeding Controlled with Pressure -Offloading No -Treatment Response Procedure Tolerated Well [See Physician Procedure note for Specifics] Pain Scale: 0-10 Numeric [Pain] -Is Patient Pain Free? Yes Psych/Mental Status: Normal Affect, Appropriate Debridement Note Post-Debridement Measurements/Treatment WC - Nurse 2 - General Ulcer CM Notes Start: 01/18/19 14:44 Freq: Status: Active Protocol: Activity Type Activity Date Activity User E-Sign Co-Sign Detail Recorded Client Recorded Date Recorded By Document 01/18/19 15:09 AN [id number] 01/18/19 15:25 AN 01/18/19 15:09 Wound Center Nurse 2 #4 L Lower Leg -Time 15:09 -Correct Patient Yes -Correct Side, Site, Position Yes -Correct Procedure Yes -Procedure Performed Yes -Type of Procedure Debridement -Clinical Debridement Subcutaneous -Post Debridement Size (cm) - Length 4.2 -Post Debridement Size (cm) - Width 2.9 -Post Debridement Size (cm) - Depth 0.2 -Total Square Cm 12.18 -Wound/Ulcer Outcome Not Healed -Ulcer Cleansing Rinsed/ Irrigated with Saline -Foul Odor after Cleansing No -Bioengineered Tissue Yes -Type of bioengineered Tissue EPIFIX -Expiration Date 05/09/23 -Product Lot Number [id number] -Percent Used 100 -Saline Lot Number [id number] -Topical Lidocaine (%) 5 -Bleeding Controlled with Pressure -Offloading No -Treatment Response Procedure Tolerated Well Pain Scale: 0-10 Numeric Is Patient Pain Free? Yes Wound debrided: left lower leg Laterality: Left Type of Debridement: Excisional debridement Anesthesia Used: 4% Lidocaine Solution, 5% Lidocaine Gel Depth: Down to and including healthy tissue, in the subcutaneous layer Percentage of wound debrided: 100 Instrument Used: 5mm curette Tissue Removed: yellow slough, devitalized tissue Severity: Fat Layer Exposed Amount of bleeding with debridement: Mild Bleeding Controlled with: Compression and gauze Patient tolerated procedure well Assessment/Plan Active Problems (Last Reviewed 12/26/18 @ 13:12 by Juli Quarles) Traumatic ulcer of left lower leg with fat layer exposed (Chronic) Nonhealing ulcer of left lower extremity (Chronic) Ulcer of left lower extremity with fat layer exposed (Chronic) Venous insufficiency (Chronic) Tobacco abuse (Chronic) Assessment: Left lower extremity ulcer suspect mixed venous and arterial component with traumatic insult as initial cause. Peripheral arterial disease. Bilateral lower extremity edema. Right heel - healed Plan: The patient was seen and examined today. A subcutaneous debridement was performed today of the left lower extremity. The patient tolerated the procedure well. She was approved for Epifix. Epifix #1 was applied to her wound per service rig operator [employer] and rehydrated with saline. A wound veil was applied over this and secured with steri-strips. She was advised to avoid disturbing the dressings and only change the secondary dressing of gauze/ABD. Continue double layer tubigrips for compression. Patient educated on the importance of diet on wound healing and instructed to increase protein and vitamin C intake. Patient verbalized understanding. Patient will follow up at wound healing center in one week or sooner if needed. Educated on the importance of following up and not missing her wound center appts. F/U in 1 week.
--- NOTE | 2019-01-18 17:10 | PN.PCM_ITS ---
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 Current Visit: Yes Code(s): L97.922 - Non-pressure chronic ulcer of unspecified part of left lower leg with fat layer exposed (2) Nonhealing ulcer of left lower extremity Status: Chronic Current Visit: Yes Qualifiers: Non-pressure ulcer stage: with fat layer exposed Code(s): L97.929 - Non-pressure chronic ulcer of unspecified part of left lower leg with unspecified severity (3) Ulcer of left lower extremity with fat layer exposed Status: Chronic Current Visit: Yes Code(s): L97.922 - Non-pressure chronic ulcer of unspecified part of left lower leg with fat layer exposed (4) Venous insufficiency Status: Chronic Current Visit: Yes Code(s): I87.2 - Venous insufficiency (chronic) (peripheral) (5) Tobacco abuse Status: Chronic Current Visit: Yes Code(s): Z72.0 - Tobacco use Type of Wound Date of Service: 01/18/19 Chief Complaint: Left lower leg ulcer for 5 months History of Wound: Ms. Narayanan is a 62yo who has been seen here at the wound center by Heather Borges CNP and Damon Chu CNP. She has been managed for left lower extremity wound. Unfortunately, due to scheduling conflicts the patient states that she has missed the last 6 weeks of appointments. The ulceration to the left lower anterior extremity appears bigger and deeper at this point with a large amount of slough, the patient has been using antibiotic ointment on this until last week when Santyl was started. Wound culture was positive for MRSA and she was started on doxycycline but has been having severe itching and increased erythema surrounding her wound. She denies any systemic signs of infection at this time. The patient otherwise denies any fever, chills, nausea, vomiting, shortness of breath, chest pain or pressure, palpitations, orthopnea, lower extremity edema, syncope or presyncopal episodes. Progress of Wound: Olivia is here for follow up of nonhealing ulcer of her left lower extremity that was initially due to trauma but is complicated by venous insufficiency and has become a venous ulcer. There is improvement to her ulcer of her left lower extremity. She tolerated Santyl and there is some granulation to her wound bed. She has been treated previously with 4 puraply applications. She has been using Santyl to the left lower extremity ulcer with changes daily but there is very little granulation. - Physical Exam Vital Signs Temp Pulse Resp BP 98.6 F 98 20 H 158/91 H 01/18/19 14:44 01/18/19 14:44 01/18/19 14:44 01/18/19 14:44 General: Alert, Oriented x3, Cooperative, No apparent distress HEENT: Atraumatic, Normocephalic Oral: Moist Mucosa Abdomen: Obese Extremities: Edema Skin: Ulcer/ Wound Wound Measurements and Assessment WC - Nurse 1 - General Ulcer Measurement Start: 01/18/19 14:44 Freq: Status: Active Protocol: Activity Type Activity Date Activity User E-Sign Co-Sign Detail Recorded Client Recorded Date Recorded By Document 01/18/19 14:44 AN [id number] 01/18/19 14:52 AN 01/18/19 14:44 Wound Center Nurse 1 [Ulcer Assessment] #4 L Lower Leg -Current Size (cm) - Length 4.6 -Current Size (cm) - Width 3.0 -Current Size (cm) - Depth 0.3 -Total Square Cm 13.80 -Date of Last Picture (Recall this 01/18/19 field) -Photo Taken Yes -Classification - Thickness Full Thickness without Exposed Support Structure -Exudate Amt Medium -Exudate Type Serosanguineous -Wound Margin Distinct, Outline Attached -Granulation Amt Medium (34-66%) -Granulation Quality Red -Slough/Fibrin Yes -Necrosis Amt Medium (34-66%) -Necrotic Tissue Type Adherent Slough -Structure Exposed None/Limited to Skin Breakdown -Texture (Pilar-wound Skin Appearance) Assessed Localized Edema Rash -Moisture (Pilar-wound Skin Appearance Assessed ) -Color (Pilar-wound Skin Appearance) Assessed Erythema -Temperature (Pilar-wound Skin Hot Appearance) -Tenderness on Palpation (Pilar-wound Yes Skin Appearance) -Ulcer Cleansing Rinsed/ Irrigated with Saline -Foul Odor after Cleansing No -Anesthetic Used 5% Lidocaine Gel [Edema Assessment] -Left Calf (cm) 38.3 -Left Ankle (cm) 21.6 WC - Nurse 2 - General Ulcer CM Notes Start: 01/18/19 14:44 Freq: Status: Active Protocol: Activity Type Activity Date Activity User E-Sign Co-Sign Detail Recorded Client Recorded Date Recorded By Document 01/18/19 15:09 AN [id number] 01/18/19 15:25 AN 01/18/19 15:09 Wound Center Nurse 2 [Procedure/Treatment] #4 L Lower Leg -Time 15:09 -Correct Patient Yes -Correct Side, Site, Position Yes -Correct Procedure Yes -Procedure Performed Yes -Type of Procedure Debridement -Clinical Debridement Subcutaneous -Post Debridement Size (cm) - Length 4.2 -Post Debridement Size (cm) - Width 2.9 -Post Debridement Size (cm) - Depth 0.2 -Total Square Cm 12.18 -Wound/Ulcer Outcome Not Healed -Ulcer Cleansing Rinsed/ Irrigated with Saline -Foul Odor after Cleansing No -Bioengineered Tissue Yes -Type of bioengineered Tissue EPIFIX -Expiration Date 05/09/23 -Product Lot Number [id number] -Percent Used 100 -Saline Lot Number [id number] -Topical Lidocaine (%) 5 -Bleeding Controlled with Pressure -Offloading No -Treatment Response Procedure Tolerated Well [See Physician Procedure note for Specifics] Pain Scale: 0-10 Numeric [Pain] -Is Patient Pain Free? Yes Psych/Mental Status: Normal Affect, Appropriate Debridement Note Post-Debridement Measurements/Treatment WC - Nurse 2 - General Ulcer CM Notes Start: 01/18/19 14:44 Freq: Status: Active Protocol: Activity Type Activity Date Activity User E-Sign Co-Sign Detail Recorded Client Recorded Date Recorded By Document 01/18/19 15:09 AN [id number] 01/18/19 15:25 AN 01/18/19 15:09 Wound Center Nurse 2 #4 L Lower Leg -Time 15:09 -Correct Patient Yes -Correct Side, Site, Position Yes -Correct Procedure Yes -Procedure Performed Yes -Type of Procedure Debridement -Clinical Debridement Subcutaneous -Post Debridement Size (cm) - Length 4.2 -Post Debridement Size (cm) - Width 2.9 -Post Debridement Size (cm) - Depth 0.2 -Total Square Cm 12.18 -Wound/Ulcer Outcome Not Healed -Ulcer Cleansing Rinsed/ Irrigated with Saline -Foul Odor after Cleansing No -Bioengineered Tissue Yes -Type of bioengineered Tissue EPIFIX -Expiration Date 05/09/23 -Product Lot Number [id number] -Percent Used 100 -Saline Lot Number [id number] -Topical Lidocaine (%) 5 -Bleeding Controlled with Pressure -Offloading No -Treatment Response Procedure Tolerated Well Pain Scale: 0-10 Numeric Is Patient Pain Free? Yes Wound debrided: left lower leg Laterality: Left Type of Debridement: Excisional debridement Anesthesia Used: 4% Lidocaine Solution, 5% Lidocaine Gel Depth: Down to and including healthy tissue, in the subcutaneous layer Percentage of wound debrided: 100 Instrument Used: 5mm curette Tissue Removed: yellow slough, devitalized tissue Severity: Fat Layer Exposed Amount of bleeding with debridement: Mild Bleeding Controlled with: Compression and gauze Patient tolerated procedure well Assessment/Plan Active Problems (Last Reviewed 12/26/18 @ 13:12 by Juli Quarles) Traumatic ulcer of left lower leg with fat layer exposed (Chronic) Nonhealing ulcer of left lower extremity (Chronic) Ulcer of left lower extremity with fat layer exposed (Chronic) Venous insufficiency (Chronic) Tobacco abuse (Chronic) Assessment: Left lower extremity ulcer suspect mixed venous and arterial component with traumatic insult as initial cause. Peripheral arterial disease. Bilateral lower extremity edema. Right heel - healed Plan: The patient was seen and examined today. A subcutaneous debridement was performed today of the left lower extremity. The patient tolerated the procedure well. She was approved for Epifix. Epifix #1 was applied to her wound per environmental services floor tech [employer] and rehydrated with saline. A wound veil was applied over this and secured with steri-strips. She was advised to avoid disturbing the dressings and only change the secondary dressing of gauze/ABD. Continue double layer tubigrips for compression. Patient educated on the importance of diet on wound healing and instructed to increase protein and vitamin C intake. Patient verbalized understanding. Patient will follow up at wound healing center in one week or sooner if needed. Educated on the importance of following up and not missing her wound center appts. F/U in 1 week.
[2019-01-25 15:18] VITALS: BP 145/116; PULSE 90; RESP 20; TEMP 36.4; BMI 35.4
--- NOTE | 2019-01-25 18:24 | PCM.WC.PN ---
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 Current Visit: Yes Code(s): L97.922 - Non-pressure chronic ulcer of unspecified part of left lower leg with fat layer exposed (2) Nonhealing ulcer of left lower extremity Status: Chronic Current Visit: Yes Qualifiers: Non-pressure ulcer stage: with fat layer exposed Code(s): L97.929 - Non-pressure chronic ulcer of unspecified part of left lower leg with unspecified severity (3) Ulcer of left lower extremity with fat layer exposed Status: Chronic Current Visit: Yes Code(s): L97.922 - Non-pressure chronic ulcer of unspecified part of left lower leg with fat layer exposed (4) Venous insufficiency Status: Chronic Current Visit: Yes Code(s): I87.2 - Venous insufficiency (chronic) (peripheral) (5) Tobacco abuse Status: Chronic Current Visit: Yes Code(s): Z72.0 - Tobacco use Type of Wound Date of Service: 01/25/19 Chief Complaint: Left lower leg ulcer for 5 months History of Wound: Ms. Narayanan is a 62yo who has been seen here at the wound center by Heather Borges CNP and Damon Chu CNP. She has been managed for left lower extremity wound. Unfortunately, due to scheduling conflicts the patient states that she has missed the last 6 weeks of appointments. The ulceration to the left lower anterior extremity appears bigger and deeper at this point with a large amount of slough, the patient has been using antibiotic ointment on this until last week when Santyl was started. Wound culture was positive for MRSA and she was started on doxycycline but has been having severe itching and increased erythema surrounding her wound. She denies any systemic signs of infection at this time. The patient otherwise denies any fever, chills, nausea, vomiting, shortness of breath, chest pain or pressure, palpitations, orthopnea, lower extremity edema, syncope or presyncopal episodes. Progress of Wound: Olivia is here for follow up of nonhealing ulcer of her left lower extremity that was initially due to trauma but is complicated by venous insufficiency and has become a venous ulcer. There is improvement to her ulcer of her left lower extremity. She tolerated Epifix #1 application. She has been treated previously with 4 puraply applications. - Physical Exam Vital Signs Temp Pulse Resp BP 97.6 F L 90 20 H 145/116 H 01/25/19 15:18 01/25/19 15:18 01/25/19 15:18 01/25/19 15:18 General: Alert, Oriented x3, Cooperative, No apparent distress HEENT: Atraumatic, Normocephalic Oral: Moist Mucosa Abdomen: Obese Extremities: Edema Skin: Ulcer/ Wound Wound Measurements and Assessment WC - Nurse 1 - General Ulcer Measurement Start: 01/18/19 14:44 Freq: Status: Active Protocol: Activity Type Activity Date Activity User E-Sign Co-Sign Detail Recorded Client Recorded Date Recorded By Document 01/25/19 15:18 DL [id number] 01/25/19 15:30 DL 01/25/19 15:18 Wound Center Nurse 1 [Ulcer Assessment] #4 L Lower Leg -Combined with other wound No -Current Size (cm) - Length 4.7 -Current Size (cm) - Width 2.7 -Current Size (cm) - Depth 0.6 -Total Square Cm 12.69 -Photo Taken No -Epithelialization None Present -Tunneling No -Undermining/Tunneling No -Circular Undermining No -Exudate Amt Medium -Exudate Type Serosanguineous -Wound Margin Thickened -Granulation Amt Large (67-100%) -Granulation Quality Pale [place] -Slough/Fibrin Yes -Necrosis Amt Small (1-33%) -Necrotic Tissue Type Adherent Slough -Texture (Pilar-wound Skin Appearance) Assessed Scarring -Moisture (Pilar-wound Skin Appearance Assessed ) Dry/Scaly -Color (Pilar-wound Skin Appearance) Assessed Erythema -Temperature (Pilar-wound Skin No Abnormality Appearance) (Pt Warm) -Tenderness on Palpation (Pilar-wound Yes Skin Appearance) -Ulcer Cleansing Wound Cleanser -Foul Odor after Cleansing No -Anesthetic Used 5% Lidocaine Gel [Edema Assessment] -Lower Limb Edema Present Yes -Left Calf (cm) 37 -Left Ankle (cm) 19.5 WC - Nurse 2 - General Ulcer CM Notes Start: 01/18/19 14:44 Freq: Status: Active Protocol: Activity Type Activity Date Activity User E-Sign Co-Sign Detail Recorded Client Recorded Date Recorded By Document 01/25/19 16:37 DV [id number] 01/25/19 16:46 DV 01/25/19 16:37 Wound Center Nurse 2 [Procedure/Treatment] #4 L Lower Leg -Time 16:43 -Correct Patient Yes -Correct Side, Site, Position Yes -Correct Procedure Yes -Procedure Performed Yes -Type of Procedure Debridement -Clinical Debridement Subcutaneous -Post Debridement Size (cm) - Length 4.2 -Post Debridement Size (cm) - Width 2.9 -Post Debridement Size (cm) - Depth 0.2 -Total Square Cm 12.18 -Wound/Ulcer Outcome Not Healed -Ulcer Cleansing Rinsed/ Irrigated with Saline -Foul Odor after Cleansing No -Bioengineered Tissue Yes -Type of bioengineered Tissue EPIFIX -Expiration Date 05/09/23 -Product Lot Number [id number] -Percent Used 100 -Topical Lidocaine (%) 4 -Bleeding Controlled with Pressure -Offloading No -Treatment Response Procedure Tolerated Well [See Physician Procedure note for Specifics] Pain Scale: 0-10 Numeric [Pain] -Is Patient Pain Free? Yes Psych/Mental Status: Normal Affect, Appropriate Debridement Note Post-Debridement Measurements/Treatment WC - Nurse 2 - General Ulcer CM Notes Start: 01/18/19 14:44 Freq: Status: Active Protocol: Activity Type Activity Date Activity User E-Sign Co-Sign Detail Recorded Client Recorded Date Recorded By Document 01/18/19 15:09 AN [id number] 01/18/19 15:25 AN Document 01/25/19 16:37 DV [id number] 01/25/19 16:46 DV 01/18/19 01/25/19 15:09 16:37 Wound Center Nurse 2 #4 L Lower Leg -Time 15:09 16:43 -Correct Patient Yes Yes -Correct Side, Site, Position Yes Yes -Correct Procedure Yes Yes -Procedure Performed Yes Yes -Type of Procedure Debridement Debridement -Clinical Debridement Subcutaneous Subcutaneous -Post Debridement Size (cm) - Length 4.2 4.2 -Post Debridement Size (cm) - Width 2.9 2.9 -Post Debridement Size (cm) - Depth 0.2 0.2 -Total Square Cm 12.18 12.18 -Wound/Ulcer Outcome Not Healed Not Healed -Ulcer Cleansing Rinsed/ Rinsed/ Irrigated with Irrigated with Saline Saline -Foul Odor after Cleansing No No -Bioengineered Tissue Yes Yes -Type of bioengineered Tissue EPIFIX EPIFIX -Expiration Date 05/09/23 05/09/23 -Product Lot Number [id number] -Percent Used 100 100 -Saline Lot Number [id number] -Topical Lidocaine (%) 5 4 -Bleeding Controlled with Pressure Pressure -Offloading No No -Treatment Response Procedure Procedure Tolerated Well Tolerated Well Pain Scale: 0-10 Numeric Is Patient Pain Free? Yes Yes Wound debrided: left LE Laterality: Left Type of Debridement: Excisional debridement Anesthesia Used: 4% Lidocaine Solution, 5% Lidocaine Gel Depth: Down to and including healthy tissue, in the subcutaneous layer Percentage of wound debrided: 100 Instrument Used: 5mm curette Tissue Removed: yellow slough, devitalized tissue Severity: Fat Layer Exposed Amount of bleeding with debridement: Mild Bleeding Controlled with: Compression and gauze Patient tolerated procedure well Assessment/Plan Active Problems (Last Reviewed 12/26/18 @ 13:12 by Juli Quarles) Traumatic ulcer of left lower leg with fat layer exposed (Chronic) Nonhealing ulcer of left lower extremity (Chronic) Ulcer of left lower extremity with fat layer exposed (Chronic) Venous insufficiency (Chronic) Tobacco abuse (Chronic) Assessment: Left lower extremity ulcer suspect mixed venous and arterial component with traumatic insult as initial cause. Peripheral arterial disease. Bilateral lower extremity edema. Right heel - healed Plan: The patient was seen and examined today. A subcutaneous debridement was performed today of the left lower extremity. The patient tolerated the procedure well. Epifix #2 was applied to her wound per entry level receptionist [employer] and rehydrated with hydrogel. A wound veil was applied over this and secured with steri-strips. She was advised to avoid disturbing the dressings and only change the secondary dressing of gauze/ABD. Continue double layer tubigrips for compression. Patient educated on the importance of diet on wound healing and instructed to increase protein and vitamin C intake. Patient verbalized understanding. Patient will follow up at wound healing center in one week or sooner if needed. Educated on the importance of following up and not missing her wound center appts. F/U in 2 weeks.
--- NOTE | 2019-01-25 18:29 | PN.PCM_ITS ---
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 Current Visit: Yes Code(s): L97.922 - Non-pressure chronic ulcer of unspecified part of left lower leg with fat layer exposed (2) Nonhealing ulcer of left lower extremity Status: Chronic Current Visit: Yes Qualifiers: Non-pressure ulcer stage: with fat layer exposed Code(s): L97.929 - Non-pressure chronic ulcer of unspecified part of left lower leg with unspecified severity (3) Ulcer of left lower extremity with fat layer exposed Status: Chronic Current Visit: Yes Code(s): L97.922 - Non-pressure chronic ulcer of unspecified part of left lower leg with fat layer exposed (4) Venous insufficiency Status: Chronic Current Visit: Yes Code(s): I87.2 - Venous insufficiency (chronic) (peripheral) (5) Tobacco abuse Status: Chronic Current Visit: Yes Code(s): Z72.0 - Tobacco use Type of Wound Date of Service: 01/25/19 Chief Complaint: Left lower leg ulcer for 5 months History of Wound: Ms. Narayanan is a 62yo who has been seen here at the wound center by Heather Borges CNP and Damon Chu CNP. She has been managed for left lower extremity wound. Unfortunately, due to scheduling conflicts the patient states that she has missed the last 6 weeks of appointments. The ulceration to the left lower anterior extremity appears bigger and deeper at this point with a large amount of slough, the patient has been using antibiotic ointment on this until last week when Santyl was started. Wound culture was positive for MRSA and she was started on doxycycline but has been having severe itching and increased erythema surrounding her wound. She denies any systemic signs of infection at this time. The patient otherwise denies any fever, chills, nausea, vomiting, shortness of breath, chest pain or pressure, palpitations, orthopnea, lower extremity edema, syncope or presyncopal episodes. Progress of Wound: Olivia is here for follow up of nonhealing ulcer of her left lower extremity that was initially due to trauma but is complicated by venous insufficiency and has become a venous ulcer. There is improvement to her ulcer of her left lower extremity. She tolerated Epifix #1 application. She has been treated previously with 4 puraply applications. - Physical Exam Vital Signs Temp Pulse Resp BP 97.6 F L 90 20 H 145/116 H 01/25/19 15:18 01/25/19 15:18 01/25/19 15:18 01/25/19 15:18 General: Alert, Oriented x3, Cooperative, No apparent distress HEENT: Atraumatic, Normocephalic Oral: Moist Mucosa Abdomen: Obese Extremities: Edema Skin: Ulcer/ Wound Wound Measurements and Assessment WC - Nurse 1 - General Ulcer Measurement Start: 01/18/19 14:44 Freq: Status: Active Protocol: Activity Type Activity Date Activity User E-Sign Co-Sign Detail Recorded Client Recorded Date Recorded By Document 01/25/19 15:18 DL [id number] 01/25/19 15:30 DL 01/25/19 15:18 Wound Center Nurse 1 [Ulcer Assessment] #4 L Lower Leg -Combined with other wound No -Current Size (cm) - Length 4.7 -Current Size (cm) - Width 2.7 -Current Size (cm) - Depth 0.6 -Total Square Cm 12.69 -Photo Taken No -Epithelialization None Present -Tunneling No -Undermining/Tunneling No -Circular Undermining No -Exudate Amt Medium -Exudate Type Serosanguineous -Wound Margin Thickened -Granulation Amt Large (67-100%) -Granulation Quality Pale [place] -Slough/Fibrin Yes -Necrosis Amt Small (1-33%) -Necrotic Tissue Type Adherent Slough -Texture (Pilar-wound Skin Appearance) Assessed Scarring -Moisture (Pilar-wound Skin Appearance Assessed ) Dry/Scaly -Color (Pilar-wound Skin Appearance) Assessed Erythema -Temperature (Pilar-wound Skin No Abnormality Appearance) (Pt Warm) -Tenderness on Palpation (Pilar-wound Yes Skin Appearance) -Ulcer Cleansing Wound Cleanser -Foul Odor after Cleansing No -Anesthetic Used 5% Lidocaine Gel [Edema Assessment] -Lower Limb Edema Present Yes -Left Calf (cm) 37 -Left Ankle (cm) 19.5 WC - Nurse 2 - General Ulcer CM Notes Start: 01/18/19 14:44 Freq: Status: Active Protocol: Activity Type Activity Date Activity User E-Sign Co-Sign Detail Recorded Client Recorded Date Recorded By Document 01/25/19 16:37 DV [id number] 01/25/19 16:46 DV 01/25/19 16:37 Wound Center Nurse 2 [Procedure/Treatment] #4 L Lower Leg -Time 16:43 -Correct Patient Yes -Correct Side, Site, Position Yes -Correct Procedure Yes -Procedure Performed Yes -Type of Procedure Debridement -Clinical Debridement Subcutaneous -Post Debridement Size (cm) - Length 4.2 -Post Debridement Size (cm) - Width 2.9 -Post Debridement Size (cm) - Depth 0.2 -Total Square Cm 12.18 -Wound/Ulcer Outcome Not Healed -Ulcer Cleansing Rinsed/ Irrigated with Saline -Foul Odor after Cleansing No -Bioengineered Tissue Yes -Type of bioengineered Tissue EPIFIX -Expiration Date 05/09/23 -Product Lot Number [id number] -Percent Used 100 -Topical Lidocaine (%) 4 -Bleeding Controlled with Pressure -Offloading No -Treatment Response Procedure Tolerated Well [See Physician Procedure note for Specifics] Pain Scale: 0-10 Numeric [Pain] -Is Patient Pain Free? Yes Psych/Mental Status: Normal Affect, Appropriate Debridement Note Post-Debridement Measurements/Treatment WC - Nurse 2 - General Ulcer CM Notes Start: 01/18/19 14:44 Freq: Status: Active Protocol: Activity Type Activity Date Activity User E-Sign Co-Sign Detail Recorded Client Recorded Date Recorded By Document 01/18/19 15:09 AN [id number] 01/18/19 15:25 AN Document 01/25/19 16:37 DV [id number] 01/25/19 16:46 DV 01/18/19 01/25/19 15:09 16:37 Wound Center Nurse 2 #4 L Lower Leg -Time 15:09 16:43 -Correct Patient Yes Yes -Correct Side, Site, Position Yes Yes -Correct Procedure Yes Yes -Procedure Performed Yes Yes -Type of Procedure Debridement Debridement -Clinical Debridement Subcutaneous Subcutaneous -Post Debridement Size (cm) - Length 4.2 4.2 -Post Debridement Size (cm) - Width 2.9 2.9 -Post Debridement Size (cm) - Depth 0.2 0.2 -Total Square Cm 12.18 12.18 -Wound/Ulcer Outcome Not Healed Not Healed -Ulcer Cleansing Rinsed/ Rinsed/ Irrigated with Irrigated with Saline Saline -Foul Odor after Cleansing No No -Bioengineered Tissue Yes Yes -Type of bioengineered Tissue EPIFIX EPIFIX -Expiration Date 05/09/23 05/09/23 -Product Lot Number [id number] -Percent Used 100 100 -Saline Lot Number [id number] -Topical Lidocaine (%) 5 4 -Bleeding Controlled with Pressure Pressure -Offloading No No -Treatment Response Procedure Procedure Tolerated Well Tolerated Well Pain Scale: 0-10 Numeric Is Patient Pain Free? Yes Yes Wound debrided: left LE Laterality: Left Type of Debridement: Excisional debridement Anesthesia Used: 4% Lidocaine Solution, 5% Lidocaine Gel Depth: Down to and including healthy tissue, in the subcutaneous layer Percentage of wound debrided: 100 Instrument Used: 5mm curette Tissue Removed: yellow slough, devitalized tissue Severity: Fat Layer Exposed Amount of bleeding with debridement: Mild Bleeding Controlled with: Compression and gauze Patient tolerated procedure well Assessment/Plan Active Problems (Last Reviewed 12/26/18 @ 13:12 by Juli Quarles) Traumatic ulcer of left lower leg with fat layer exposed (Chronic) Nonhealing ulcer of left lower extremity (Chronic) Ulcer of left lower extremity with fat layer exposed (Chronic) Venous insufficiency (Chronic) Tobacco abuse (Chronic) Assessment: Left lower extremity ulcer suspect mixed venous and arterial component with traumatic insult as initial cause. Peripheral arterial disease. Bilateral lower extremity edema. Right heel - healed Plan: The patient was seen and examined today. A subcutaneous debridement was performed today of the left lower extremity. The patient tolerated the procedure well. Epifix #2 was applied to her wound per [place] [employer] and rehydrated with hydrogel. A wound veil was applied over this and secured with steri-strips. She was advised to avoid disturbing the dressings and only change the secondary dressing of gauze/ABD. Continue double layer tubigrips for compression. Patient educated on the importance of diet on wound healing and instructed to increase protein and vitamin C intake. Patient verbalized understanding. Patient will follow up at wound healing center in one week or sooner if needed. Educated on the importance of following up and not missing her wound center appts. F/U in 2 weeks.
== END 2019-02-05 23:59 ==
LOC: WC 15:15
PROVIDERS: Family Provider Internal Medicine; PCP Internal Medicine; Visit Provider Family Medicine
DX: I73.9 Peripheral vascular disease, unspecified (principal); I87.2 Venous insufficiency (chronic) (peripheral); L97.822 Non-pressure chronic ulcer of other part of left lower leg with fat layer exposed; Z72.0 Tobacco use; R60.0 Localized edema
CPT/HCPCS: 15271; Q4186

== ENCOUNTER 2019-03-01 15:15 | Outpatient (RCR) | payer MEDICARE, SELFPAY ==
[2019-02-06 00:54] VITALS: BP 145/116; PULSE 90; RESP 20; TEMP 36.4
[2019-02-22 14:55] VITALS: BP 178/99; PULSE 101; RESP 18; TEMP 37; BMI 35.4
--- NOTE | 2019-02-22 19:46 | PCM.WC.PN ---
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 Narayanan is a 62yo who has been seen here at the wound center by Heather Borges CNP and Damon Chu CNP. She has been managed for left lower extremity wound. Unfortunately, due to scheduling conflicts the patient states that she has missed the last 6 weeks of appointments. The ulceration to the left lower anterior extremity appears bigger and deeper at this point with a large amount of slough, the patient has been using antibiotic ointment on this until last week when Santyl was started. Wound culture was positive for MRSA and she was started on doxycycline but has been having severe itching and increased erythema surrounding her wound. She denies any systemic signs of infection at this time. The patient otherwise denies any fever, chills, nausea, vomiting, shortness of breath, chest pain or pressure, palpitations, orthopnea, lower extremity edema, syncope or presyncopal episodes. Progress of Wound: Olivia is here for follow up of nonhealing ulcer of her left lower extremity that was initially due to trauma but is complicated by venous insufficiency and has become a venous ulcer. There is improvement to her ulcer of her left lower extremity. She tolerated Epifix #2 application but unfortunately has not been seen for 3 weeks. She has been using Santyl and adaptic for the last 2 weeks. She has been treated previously with 4 puraply applications. - Physical Exam Vital Signs Temp Pulse Resp BP 98.6 F 101 H 18 178/99 H 02/22/19 14:55 02/22/19 14:55 02/22/19 14:55 02/22/19 14:55 General: Alert, Oriented x3, Cooperative, No apparent distress HEENT: Atraumatic, Normocephalic Oral: Moist Mucosa Abdomen: Obese Skin: Ulcer/ Wound Wound Measurements and Assessment WC - Nurse 1 - General Ulcer Measurement Start: 02/18/19 17:59 Freq: Status: Active Protocol: Activity Type Activity Date Activity User E-Sign Co-Sign Detail Recorded Client Recorded Date Recorded By Document 02/22/19 14:55 MW [id number] 02/22/19 14:59 MW 02/22/19 14:55 Wound Center Nurse 1 [Ulcer Assessment] #4 L Lower Leg -Combined with other wound No -Current Size (cm) - Length 3.4 -Current Size (cm) - Width 2.6 -Current Size (cm) - Depth 0.5 -Total Square Cm 8.84 -Date of Last Picture (Recall this 02/22/19 field) -Photo Taken Yes -Epithelialization None Present -Tunneling No -Undermining/Tunneling No -Circular Undermining No -Exudate Amt Medium -Exudate Type Serous -Wound Margin Flat & Intact -Granulation Amt None Present (0 %) -Granulation Quality N/A -Slough/Fibrin Yes -Necrosis Amt Large (67-100%) -Necrotic Tissue Type Adherent Slough -Structure Exposed N/A -Texture (Pilar-wound Skin Appearance) Assessed Localized Edema -Moisture (Pilar-wound Skin Appearance Assessed ) Dry/Scaly -Color (Pilar-wound Skin Appearance) Assessed Rubor -Temperature (Pilar-wound Skin No Abnormality Appearance) (Pt Warm) -Tenderness on Palpation (Pilar-wound Yes Skin Appearance) -Ulcer Cleansing Rinsed/ Irrigated with Saline -Foul Odor after Cleansing No -Anesthetic Used 4% Lidocaine Solution 5% Lidocaine Gel [Edema Assessment] -Lower Limb Edema Present Yes -Left Calf (cm) 42.5 -Left Ankle (cm) 23.2 WC - Nurse 2 - General Ulcer CM Notes Start: 02/18/19 17:59 Freq: Status: Active Protocol: Activity Type Activity Date Activity User E-Sign Co-Sign Detail Recorded Client Recorded Date Recorded By Document 02/22/19 15:52 DV [id number] 02/22/19 16:03 DV 02/22/19 15:52 Wound Center Nurse 2 [Procedure/Treatment] #4 L Lower Leg -Time 15:57 -Correct Patient Yes -Correct Side, Site, Position Yes -Correct Procedure Yes -Procedure Performed Yes -Type of Procedure Debridement -Clinical Debridement Subcutaneous -Post Debridement Size (cm) - Length 4.5 -Post Debridement Size (cm) - Width 3.6 -Post Debridement Size (cm) - Depth 0.5 -Total Square Cm 16.20 -Wound/Ulcer Outcome Not Healed -Ulcer Cleansing Rinsed/ Irrigated with Saline -Foul Odor after Cleansing No -Bioengineered Tissue No -Bleeding Controlled with Pressure -Offloading No -Treatment Response Procedure Tolerated Well [See Physician Procedure note for Specifics] Pain Scale: 0-10 Numeric [Pain] -Is Patient Pain Free? Yes Psych/Mental Status: Normal Affect, Appropriate Debridement Note Post-Debridement Measurements/Treatment WC - Nurse 2 - General Ulcer CM Notes Start: 02/18/19 17:59 Freq: Status: Active Protocol: Activity Type Activity Date Activity User E-Sign Co-Sign Detail Recorded Client Recorded Date Recorded By Document 02/22/19 15:52 DV [id number] 02/22/19 16:03 DV 02/22/19 15:52 Wound Center Nurse 2 #4 L Lower Leg -Time 15:57 -Correct Patient Yes -Correct Side, Site, Position Yes -Correct Procedure Yes -Procedure Performed Yes -Type of Procedure Debridement -Clinical Debridement Subcutaneous -Post Debridement Size (cm) - Length 4.5 -Post Debridement Size (cm) - Width 3.6 -Post Debridement Size (cm) - Depth 0.5 -Total Square Cm 16.20 -Wound/Ulcer Outcome Not Healed -Ulcer Cleansing Rinsed/ Irrigated with Saline -Foul Odor after Cleansing No -Bioengineered Tissue No -Bleeding Controlled with Pressure -Offloading No -Treatment Response Procedure Tolerated Well Pain Scale: 0-10 Numeric Is Patient Pain Free? Yes Wound debrided: left lower leg Laterality: Left Type of Debridement: Excisional debridement Anesthesia Used: 4% Lidocaine Solution, 5% Lidocaine Gel Depth: Down to and including healthy tissue, in the subcutaneous layer Percentage of wound debrided: 100 Instrument Used: 5mm curette Tissue Removed: yellow slough, devitalized tissue Severity: Fat Layer Exposed Amount of bleeding with debridement: Mild Bleeding Controlled with: Compression and gauze Patient tolerated procedure well Assessment/Plan Active Problems (Last Reviewed 12/26/18 @ 13:12 by Juli Quarles) Traumatic ulcer of left lower leg with fat layer exposed (Chronic) Ulcer of left lower extremity with fat layer exposed (Chronic) Venous insufficiency (Chronic) Assessment: Left lower extremity ulcer suspect mixed venous and arterial component with traumatic insult as initial cause. Peripheral arterial disease. Bilateral lower extremity edema. Right heel - healed Plan: The patient was seen and examined today. A subcutaneous debridement was performed today of the left lower extremity. The patient tolerated the procedure well. Wound culture was taken today due to pilar-ulcer erythema and increased pain. Ciprofloxacin prescribed. Will have her continue Santyl and adaptic. Continue double layer tubigrips for compression. Patient educated on the importance of diet on wound healing and instructed to increase protein and vitamin C intake. Patient verbalized understanding. Patient will follow up at wound healing center in one week or sooner if needed. Educated on the importance of following up and not missing her wound center appts. F/U in 1 week.
--- NOTE | 2019-02-22 19:50 | PN.PCM_ITS ---
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 Narayanan is a 62yo who has been seen here at the wound center by Heather Borges CNP and Damon Chu CNP. She has been managed for left lower extremity wound. Unfortunately, due to scheduling conflicts the patient states that she has missed the last 6 weeks of appointments. The ulceration to the left lower anterior extremity appears bigger and deeper at this point with a large amount of slough, the patient has been using antibiotic ointment on this until last week when Santyl was started. Wound culture was positive for MRSA and she was started on doxycycline but has been having severe itching and increased erythema surrounding her wound. She denies any systemic signs of infection at this time. The patient otherwise denies any fever, chills, nausea, vomiting, shortness of breath, chest pain or pressure, palpitations, orthopnea, lower extremity edema, syncope or presyncopal episodes. Progress of Wound: Olivia is here for follow up of nonhealing ulcer of her left lower extremity that was initially due to trauma but is complicated by venous insufficiency and has become a venous ulcer. There is improvement to her ulcer of her left lower extremity. She tolerated Epifix #2 application but unfortunately has not been seen for 3 weeks. She has been using Santyl and adaptic for the last 2 weeks. She has been treated previously with 4 puraply a pplications. - Physical Exam Vital Signs Temp Pulse Resp BP 98.6 F 101 H 18 178/99 H 02/22/19 14:55 02/22/19 14:55 02/22/19 14:55 02/22/19 14:55 General: Alert, Oriented x3, Cooperative, No apparent distress HEENT: Atraumatic, Normocephalic Oral: Moist Mucosa Abdomen: Obese Skin: Ulcer/ Wound Wound Measurements and Assessment WC - Nurse 1 - General Ulcer Measurement Start: 02/18/19 17:59 Freq: Status: Active Protocol: Activity Type Activity Date Activity User E-Sign Co-Sign Detail Recorded Client Recorded Date Recorded By Document 02/22/19 14:55 MW [id number] 02/22/19 14:59 MW 02/22/19 14:55 Wound Center Nurse 1 [Ulcer Assessment] #4 L Lower Leg -Combined with other wound No -Current Size (cm) - Length 3.4 -Current Size (cm) - Width 2.6 -Current Size (cm) - Depth 0.5 -Total Square Cm 8.84 -Date of Last Picture (Recall this 02/22/19 field) -Photo Taken Yes -Epithelialization None Present -Tunneling No -Undermining/Tunneling No -Circular Undermining No -Exudate Amt Medium -Exudate Type Serous -Wound Margin Flat & Intact -Granulation Amt None Present (0 %) -Granulation Quality N/A -Slough/Fibrin Yes -Necrosis Amt Large (67-100%) -Necrotic Tissue Type Adherent Slough -Structure Exposed N/A -Texture (Pilar-wound Skin Appearance) Assessed Localized Edema -Moisture (Pilar-wound Skin Appearance Assessed ) Dry/Scaly -Color (Pilar-wound Skin Appearance) Assessed Rubor -Temperature (Pilar-wound Skin No Abnormality Appearance) (Pt Warm) -Tenderness on Palpation (Pilar-wound Yes Skin Appearance) -Ulcer Cleansing Rinsed/ Irrigated with Saline -Foul Odor after Cleansing No -Anesthetic Used 4% Lidocaine Solution 5% Lidocaine Gel [Edema Assessment] -Lower Limb Edema Present Yes -Left Calf (cm) 42.5 -Left Ankle (cm) 23.2 WC - Nurse 2 - General Ulcer CM Notes Start: 02/18/19 17:59 Freq: Status: Active Protocol: Activity Type Activity Date Activity User E-Sign Co-Sign Detail Recorded Client Recorded Date Recorded By Document 02/22/19 15:52 DV [id number] 02/22/19 16:03 DV 02/22/19 15:52 Wound Center Nurse 2 [Procedure/Treatment] #4 L Lower Leg -Time 15:57 -Correct Patient Yes -Correct Side, Site, Position Yes -Correct Procedure Yes -Procedure Performed Yes -Type of Procedure Debridement -Clinical Debridement Subcutaneous -Post Debridement Size (cm) - Length 4.5 -Post Debridement Size (cm) - Width 3.6 -Post Debridement Size (cm) - Depth 0.5 -Total Square Cm 16.20 -Wound/Ulcer Outcome Not Healed -Ulcer Cleansing Rinsed/ Irrigated with Saline -Foul Odor after Cleansing No -Bioengineered Tissue No -Bleeding Controlled with Pressure -Offloading No -Treatment Response Procedure Tolerated Well [See Physician Procedure note for Specifics] Pain Scale: 0-10 Numeric [Pain] -Is Patient Pain Free? Yes Psych/Mental Status: Normal Affect, Appropriate Debridement Note Post-Debridement Measurements/Treatment WC - Nurse 2 - General Ulcer CM Notes Start: 02/18/19 17:59 Freq: Status: Active Protocol: Activity Type Activity Date Activity User E-Sign Co-Sign Detail Recorded Client Recorded Date Recorded By Document 02/22/19 15:52 DV [id number] 02/22/19 16:03 DV 02/22/19 15:52 Wound Center Nurse 2 #4 L Lower Leg -Time 15:57 -Correct Patient Yes -Correct Side, Site, Position Yes -Correct Procedure Yes -Procedure Performed Yes -Type of Procedure Debridement -Clinical Debridement Subcutaneous -Post Debridement Size (cm) - Length 4.5 -Post Debridement Size (cm) - Width 3.6 -Post Debridement Size (cm) - Depth 0.5 -Total Square Cm 16.20 -Wound/Ulcer Outcome Not Healed -Ulcer Cleansing Rinsed/ Irrigated with Saline -Foul Odor after Cleansing No -Bioengineered Tissue No -Bleeding Controlled with Pressure -Offloading No -Treatment Response Procedure Tolerated Well Pain Scale: 0-10 Numeric Is Patient Pain Free? Yes Wound debrided: left lower leg Laterality: Left Type of Debridement: Excisional debridement Anesthesia Used: 4% Lidocaine Solution, 5% Lidocaine Gel Depth: Down to and including healthy tissue, in the subcutaneous layer Percentage of wound debrided: 100 Instrument Used: 5mm curette Tissue Removed: yellow slough, devitalized tissue Severity: Fat Layer Exposed Amount of bleeding with debridement: Mild Bleeding Controlled with: Compression and gauze Patient tolerated procedure well Assessment/Plan Active Problems (Last Reviewed 12/26/18 @ 13:12 by Juli Quarles) Traumatic ulcer of left lower leg with fat layer exposed (Chronic) Ulcer of left lower extremity with fat layer exposed (Chronic) Venous insufficiency (Chronic) Assessment: Left lower extremity ulcer suspect mixed venous and arterial component with traumatic insult as initial cause. Peripheral arterial disease. Bilateral lower extremity edema. Right heel - healed Plan: The patient was seen and examined today. A subcutaneous debridement was performed today of the left lower extremity. The patient tolerated the procedure well. Wound culture was taken today due to pilar-ulcer erythema and increased pain. Ciprofloxacin prescribed. Will have her continue Santyl and adaptic. Continue double layer tubigrips for compression. Patient educated on the importance of diet on wound healing and instructed to increase protein and vitamin C intake. Patient verbalized understanding. Patient will follow up at wound healing center in one week or sooner if needed. Educated on the importance of following up and not missing her wound center appts. F/U in 1 week.
== END 2019-03-08 23:59 ==
LOC: WC 15:15
PROVIDERS: Family Provider Internal Medicine; PCP Internal Medicine; Referring Provider Family Medicine; Visit Provider Family Medicine
DX: I87.2 Venous insufficiency (chronic) (peripheral) (principal); L97.822 Non-pressure chronic ulcer of other part of left lower leg with fat layer exposed; R60.0 Localized edema; Z86.14 Personal history of Methicillin resistant Staphylococcus aureus infection; I73.9 Peripheral vascular disease, unspecified
CPT/HCPCS: 11042; 87070; 87075; 87077; 87186; 87205

== ENCOUNTER → 2019-04-29 16:51 | Outpatient (CLI) | payer MEDICARE, SELFPAY ==
[2019-02-22 14:55] VITALS: BMI 35.4
--- NOTE | 2019-04-29 16:55 | RAD_ITS ---
STUDY: X-RAY - PELVIS AND RIGHT HIP REASON FOR EXAM: Female, 63 years old. Pain TECHNIQUE: 3 views of the pelvis and hip. COMPARISON: None. FINDINGS: There is a non-specific bowel gas pattern. Normal visualized soft tissue structures. Normal bilateral iliac wings, sacroiliac joints and visualized sacrum. Normal bilateral superior and inferior pubic rami. Normal pubic symphysis. Normal bilateral ischial tuberosities. There is suspicion for an impacted fracture at the subcapital region of the right femur. Normal acetabulum. Mild degenerative changes of slight narrowing at the hip joint. RAD/HIP, UNI W/ Pelvis 2-3 Views IMPRESSION: Possible subcapital impacted fracture of the right femur. Electronically Signed: Kendall Lopez DO at 21:39 EDT Tel [phone], Service support ,
== END ==
PROVIDERS: Family Provider Internal Medicine; PCP Internal Medicine; Referring Provider Anesthesiology Pain Medicine; Visit Provider Anesthesiology Pain Medicine
DX: M25.551 Pain in right hip (principal)
CPT/HCPCS: 73502

== ENCOUNTER 2019-05-02 14:36 | Emergency (ER) | payer MEDICARE, SELFPAY ==
[2019-02-22 14:55] VITALS: BMI 35.4
[2019-05-02 14:38] VITALS: BP 163/114; PULSE 109; RESP 18; TEMP 36.2; O2SAT 99; BMI 35.4
[2019-05-02 15:26] VITALS: BP 175/92; PULSE 85; RESP 16; O2SAT 98
--- NOTE | 2019-05-02 15:29 | CT_ITS ---
STUDY: CT RIGHT HIP WITHOUT CONTRAST REASON FOR EXAM: Female, 63 years old. Right hip pain. Suspected fracture. RADIATION DOSAGE (If Supplied By Facility): CTDIvol = ( 26.96 ) mGy, DLP = ( 783.59 ) mGycm TECHNIQUE: Transaxial imaging of the right hip was performed without oral contrast, and without intravenous administration of contrast material. Multiplanar coronal and sagittal images were reformatted. Individualized dose optimization techniques were used for this CT. COMPARISON: None. FINDINGS: Normal urinary bladder. Normal visualized uterus and ovaries. Normal visualized small intestine. Normal visualized colon. There is no pelvic fluid. There is no pelvic mass lesion or lymphadenopathy. There is diffuse atherosclerotic calcification of the pelvic arteries. There is a femorofemoral bypass graft across the lower abdominal wall. There is a small right inguinal hernia with omental fat. Normal visualized sacrum, right sacroiliac joint and right iliac wing. Normal right acetabulum. Normal right superior and inferior pubic rami and initial tuberosity. There is marked osteophyte formation about the femoral head with mild sclerosis. There is evidence of defects in the articular surface of the femoral head suggesting AVN. Normal right acetabulum. There is marked narrowing of the right hip joint. No visualized fracture is noted. CT/Extremity Lower without Contra IMPRESSION: 1. No evidence of right femoral fracture is suspected on the plain film. 2. Findings suggestive of AVN of the right femoral head with degenerative changes right hip. 3. Femorofemoral bypass graft. Electronically Signed: Ander Reynolds DO at 16:23 EDT Tel [phone], Service support ,
[2019-05-02] MEDS: HYDROcodone Bitartrate/Apap 5/325 Tablet PO (15:43)
--- NOTE | 2019-05-02 16:44 | ED.VIS.LOWEX ---
History of Present Illness Chief Complaint: Lower Extremity Injury Informant: Patient Occurred: Month(s) - several Onset: Month(s) Context: Gradual Onset Timing: Continuous Quality of Pain: Aching Location: right hip Current Severity: Moderate Maximum Severity: Moderate Worsened by: thigh flexing Relieved by: remaining still Associated Symptoms: Negative for: Parasthesia, Weakness, Loss of Funtion - Past Medical History (1) MRSA (methicillin resistant Staphylococcus aureus) infection Status: Chronic Comment: left lower leg (2) Anxiety Status: Chronic (3) Degeneration of lumbar intervertebral disc Status: Chronic (4) Goiter Status: Chronic (5) Hypertension Status: Chronic (6) Peripheral arterial disease Status: Chronic (7) Peripheral neuropathy Status: Chronic (8) Tricompartmental knee joint arthritis Status: Chronic (9) Venous insufficiency Status: Chronic Past Medical History - Allergies and Home Meds Allergies/Adverse Reactions: Allergies doxycycline Allergy (Severe, Verified 05/02/19 14:37) Rash Primary Care Physician: Isidro Brian MD [Primary Care Provider] - Surgical History: - - fem-fem bypass Smoking Status: Current every day smoker - Family History Maternal Family History: Family History (Last Reviewed 12/26/18 @ 13:12 by Juli Quarles) Mother Heart disease Myocardial infarction Hypertension Father Cancer Family History: Reports: Heart Disease Paternal Family History: Family History (Last Reviewed 12/26/18 @ 13:12 by Juli Quarles) Mother Heart disease Myocardial infarction Hypertension Father Cancer Family History: Reports: No pertinent history Review of Systems General: Denies: Chills, Fever Musculoskeletal: Reports: Back pain - chronic, Extremity Pain. Denies: Swelling Neurological: Reports: Numbness - due to neuropathy BLE. Denies: Headache, Weakness Physical Exam Vital Signs/Narrative: Vital Signs Temp Pulse Resp BP Pulse Ox 05/02/19 15:26 85 16 175/92 H 98 05/02/19 14:38 97.2 F L 109 H 18 163/114 H 99 Inital Vital Signs reviewed: Yes - Extremity Exam Right Hip: Negative for: Limited ROM - FROM, pain w/ hip flexion no pain w/ log roll at rest. RLE not shortened c/w the left. no deformities. General: Well nourished, Well developed Head: Normocephalic, Atraumatic Skin: Normal color, No rash, No Trauma Neurological: Alert, Oriented x3, Cranial nerves II-XII grossly intact, Normal Strength, Normal Sensation Psychological: Normal affect, Normal Mood Diagnostic/Tx/Re-eval Clinical Impression(s) from Imaging Studies Lower Extremity CT 05/02/19 15:29 IMPRESSION: 1. No evidence of right femoral fracture is suspected on the plain film. 2. Findings suggestive of AVN of the right femoral head with degenerative changes right hip. 3. Femorofemoral bypass graft. Electronically Signed: Ander ReynoldsDO at 16:23 EDT Tel [phone], Service support , - Medical Decision Making CT was performed for further evaluation given the x-ray result of possible subcapital femoral neck fracture. 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 She has been able to walk on it. I discussed with orthopedics Dr. Molina, who advised her getting a walker for both pain control and safety, and following up closely in the office for further evaluation. She was given a dose of oxycodone here at her request for something for pain, but she is in pain management and no prescriptions will be written except for a walker. ED Disposition - Plan for ED Patient: Disposition: Home or Assisted Living Diagnosis: Avascular necrosis of bone of right hip Instructions: [id number] Disease Referrals: Isidro Brian MD [Primary Care Provider] - Nilton Molina MD [STAFF PHYSICIAN] - As soon as possible (Call for appointment) Additional Instructions: The following discharge instructions are for children, but the idea is the same, see the above diagnosis. You do not have a fracture. You may need a hip replacement for this, or there may be other conservative treatments. Talk with orthopedics at the appointment. Use a walker, see the enclosed prescription.
[2019-05-02 17:07] VITALS: BP 179/76; PULSE 73; RESP 16; O2SAT 99
[2019-05-02 17:13] VITALS: BP 179/76; PULSE 73; RESP 16; O2SAT 99
== END 2019-05-02 17:14 | disposition home or self-care (01) ==
PROVIDERS: Emergency Provider Emergency Medicine; Family Provider Internal Medicine; PCP Internal Medicine
DX: M87.851 Other osteonecrosis, right femur (principal); I10 Essential (primary) hypertension; I87.2 Venous insufficiency (chronic) (peripheral); G62.9 Polyneuropathy, unspecified; F17.200 Nicotine dependence, unspecified, uncomplicated; Z79.82 Long term (current) use of aspirin; Z79.899 Other long term (current) drug therapy
CPT/HCPCS: 73700; 99283

== ENCOUNTER → 2020-12-17 10:03 | Outpatient (CLI) | payer MEDICARE, SELFPAY ==
[2020-12-17 10:55] LABS: Amphetamine Urine VISTA NEGATIVE (<1000 ng/mL); Barbiturate Urine VISTA NEGATIVE (< 200 ng/mL); Benzodiazepine Urine VISTA NEGATIVE (< 200 ng/mL); Cocaine Urine VISTA NEGATIVE (< 300 ng/mL); Ecstacy Urine VISTA NEGATIVE (< 500 ng/mL); Methadone Urine VISTA NEGATIVE (< 300 ng/mL); PCP Urine VISTA NEGATIVE (< 25 ng/mL); THC Urine VISTA POSITIVE (< 50 ng/mL); Vista UDS pH Range 7
== END ==
PROVIDERS: PCP Internal Medicine; Referring Provider Anesthesiology Pain Medicine; Visit Provider Anesthesiology Pain Medicine
DX: F11.20 Opioid dependence, uncomplicated (principal)
CPT/HCPCS: 80307

== ENCOUNTER 2021-01-03 19:23 | Emergency (ER) | payer MEDICARE, SELFPAY ==
[2021-01-03 19:24] VITALS: BP 188/94; PULSE 91; RESP 20; TEMP 36.2; O2SAT 96; BMI 26.3
--- NOTE | 2021-01-03 19:31 | ED.RN ---
PT DOES NOT KNOW HOME MEDICATIONS
--- NOTE | 2021-01-03 19:44 | EKG12_ITS ---
Test Reason : LOWER EXTREMETY Blood Pressure : / mmHG Vent. Rate : 086 BPM Atrial Rate : 086 BPM P-R Int : 142 ms QRS Dur : 082 ms QT Int : 382 ms P-R-T Axes : 057 082 074 degrees QTc Int : 457 ms Normal sinus rhythm ST & T wave abnormality, consider anterolateral and inferior ischemia Abnormal ECG Confirmed by SHAVON ESCOBAR, AURORA ([id number]), editor & co founder AVILA SAUNDERS ([id number]) on 01/07/2021 9:27:49 AM Referred By: GISELL Confirmed By:AURORA SANDS MD
[2021-01-03] MEDS: Morphine 4 MG/ML Syringe IV ×2 (20:07→22:10)
[2021-01-03] MEDS: Ondansetron 4 MG/2 ML Vial IV (20:07)
--- NOTE | 2021-01-03 20:11 | CT_ITS ---
STUDY: CTA OF THE ABDOMINAL AORTA AND BILATERAL LOWER EXTREMITIES REASON FOR EXAM: Female, 65 years old. Ischemic foot RADIATION DOSAGE (If Supplied By Facility): CTDIvol = ( 8.29 ) mGy, DLP = ( 1056.64 ) mGycm TECHNIQUE: Axial CT angiography multi-detector data acquisition was obtained from the lung bases to the ankle following intravenous administration of IV 100ML ISOVUE 370. Axial images and MIP images were reconstructed from the axial data set. Post-processing of the angiographic images was performed, with multiplanar reformation and 3D reconstruction. Individualized dose optimization techniques were used for this CT. TECHNICAL QUALITY: Good COMPARISON: None. Descriptors of Narrowing: None (0%) Mild (< 50%) Moderate (50-70%) Severe (70-90%) Subtotal/Total Occlusion (90-100%) Non-Evaluable (technically non-diagnostic FINDINGS: Abdominal aorta: Occluded below the renal arteries. Celiac and superior mesenteric arteries: There is severe narrowing. Inferior mesenteric artery: There is severe narrowing. Right renal artery(arteries): There is severe narrowing. Left renal artery(arteries): There is moderate narrowing. Right common iliac artery: Occluded. Right external iliac artery: Occluded. Right internal iliac artery: There is severe diffuse narrowing. Left common iliac artery: Occluded. Left external iliac artery: Occluded. Left internal iliac artery: There is severe diffuse narrowing. RIGHT LOWER EXTREMITY Right common femoral artery: There is severe diffuse narrowing. Right profundus femoris: There is mild diffuse narrowing. Right superficial femoral: There is severe diffuse narrowing. Right popliteal artery: There is severe diffuse narrowing. Right tibioperoneal trunk: There is mild diffuse narrowing. Right anterior tibial artery: There is mild diffuse narrowing, with visualization of the vessel to the distal calf. Right posterior tibial artery: There is mild diffuse narrowing, with visualization of the vessel to the distal calf. Right peroneal artery: There is mild diffuse narrowing, with visualization of the vessel to the distal calf. LEFT LOWER EXTREMITY Left common femoral artery: There is severe diffuse narrowing. Left profundus femoris: There is mild diffuse narrowing, with visualization of the vessel to the proximal calf. Left superficial femoral: Occluded at the origin. Left popliteal artery: Occluded. Left tibioperoneal trunk: There is severe diffuse narrowing. Left anterior tibial artery: There is severe diffuse narrowing, with visualization of the vessel to the distal calf. Left posterior tibial artery: There is severe diffuse narrowing, with visualization of the vessel to the distal calf. Left peroneal artery: Occluded at the origin. There is a left cyst measures 2 cm. There is prominent mucosal enhancement with wall thickening of a few distal ileal loops may represent inflammatory or ischemic changes. CT/CTA Abd w/Runoff W/WO Contrast IMPRESSION: Occlusion of the infrarenal abdominal aorta. Occlusion of the right and left common iliac and bilateral external iliac arteries. Occlusion of femorofemoral bypass graft. Severe atherosclerotic changes with multiple areas of moderate to severe stenosis in the right common femoral artery, right superficial femoral artery and right popliteal artery. The right peroneal artery is followed down into the ankle. Right anterior tibial and posterior tibial arteries are occluded in the distal calf. Severe atherosclerotic disease in the left common femoral artery. There is occlusion of the left superficial femoral artery at its origin. There is reconstitution of the iliotibial trunk. The left peroneal artery is occluded at its origin. The left anterior tibial artery is occluded in the proximal calf. Left posterior tibial artery is occluded in the distal calf. There is prominent mucosal enhancement with wall thickening of a few distal ileal loops may represent inflammatory or ischemic changes. Electronically Signed: Dany Banuelos MD at 22:19 EDT Tel , Service support ,
[2021-01-03] MEDS: 0.9% Normal Saline 1,000 ML 150 ML IV (20:13)
[2021-01-03 20:52] LABS: Absolute Lymphocyte Count 1.06 X10^3/uL (0.83-4.51); Absolute Neutrophil Count 35.5 X10^3/uL (2.0-7.7); Basophil# 0.07 X10^3/uL; Basophil% 0.2 % (0-1); Hematocrit 39.4 % (37-47); Hemoglobin 12.6 g/dL (12.0-15.0); Lymphocyte # 1.06 X10^3/ul (4.0); Lymphocyte % 2.8 % (19-41); Mean Corpuscular Hgb 28.4 pg (27.0-32.0); Mean Corpuscular Volume 88.9 fL (81-99); Mean Platelet Vol. 11.2 fl (6.2-12.0); Monocyte# 1.22 X10^3/uL; Monocyte% 3.2 % (0-10); NRBC Flagged by Analyzer 0 % (0-5); Neutrophil # 35.46 X10^3/uL (2.7-7.7); Neutrophil % 92.7 % (47-70); POSITIVE COUNT YES; POSITIVE DIFFERENTIAL YES; Platelet Count 429 K/mm3 (150-450); RBC Distribution Width CV 17.4 % (11.6-14.6); RBC Distribution Width SD 56.2 fl (35.1-43.9); Red Blood Count 4.43 M/mm3 (4.2-5.4)
[2021-01-03 20:54] LABS: ALB/GLOB Ratio 0.5 RATIO (0.9-2.4); AST(SGOT) 17 U/L (15-37); Alanine Aminotransfer ALT/SGPT 12 U/L (13-56); Albumin, Serum 2.6 g/dL (3.2-5.0); Alkaline Phosphatase 167 U/L (45-117); Anion Gap 9 (5-15); BUN 8 mg/dL (7-18); BUN/Creat Ratio 12.9 RATIO (10-20); Calcium,Total 8.5 mg/dL (8.5-10.1); Chloride 102 mmol/L (98-107); Creatinine, Serum 0.62 mg/dL (0.55-1.02); EST Glomerular Filtration Rate 103 mL/min (>60); Est Glom Filt Rate - Afr Amer 125 mL/min (>60); Estimated Creatinine Clearance 84.69 ml/min; Globulin 5.1 g/dL (2.2-4.2); Glucose 127 mg/dL (74-106); Protein, Total 7.7 g/dL (6.4-8.2); Sodium Level 137 mmol/L (136-145)
[2021-01-03 20:56] LABS: International Normalized Ratio 1.3; Prothrombin Time (Protime)PT. 15.5 SECONDS (11.7-14.9)
[2021-01-03 20:57] LABS: Partial Thromboplast Time 35.1 Seconds (24.1-36.2); White Blood Count 38.2 K/mm3 (4.4-11.0)
[2021-01-03] MEDS: Heparin Injection (Vial) 5,000 UNIT/ML VIAL 5000 UNIT IV (20:59)
[2021-01-03] MEDS: HEPARIN/D5w 25,000 UNITS 25,000 UNITS/250 ML IV.SOLN. 11 UNITS IV (21:00)
[2021-01-03 21:02] LABS: CPK Total, Creatine Kinase 183 U/L (26-192)
[2021-01-03 21:09] LABS: Mucous, Urine 0 SEEN /hpf (<or=2+); Red Blood Cells-Urine 0 SEEN /hpf (0-5); Squamous Epithelial Cells - UA 0 SEEN /hpf (5-10)
--- NOTE | 2021-01-03 21:15 | RAD_ITS ---
STUDY: X-RAY CHEST REASON FOR EXAM: Female, 65 years old. Weakness TECHNIQUE: Single AP portable view of the chest. COMPARISON: None. FINDINGS: The lungs are clear and expanded. There is no demonstrated pleural abnormality. Normal size heart. Normal mediastinum and brigida. Normal visualized pulmonary arteries. Normal visualized aortic arch and descending thoracic aorta. Normal visualized thoracic spine. Normal visualized ribs, clavicles, and shoulders. There is no demonstrated abnormality of the visualized soft tissue structures of the upper abdomen. RAD/Chest 1 View (Portable) IMPRESSION: Normal x-ray examination of the chest. Electronically Signed: Dany Banuelos MD at 22:24 EDT Tel , Service support ,
[2021-01-03 21:17] LABS: Color, Urine Amber (Yellow); Glucose, Dipstick Normal (Normal); Ketone-Dipstick 15 mg/dl (Negative); Leukocyte Esterase-Dipstick 500 /ul (Negative); Nitrite-Dipstick Negative (Negative); Occult Blood-Urine 25 /ul (Negative); Protein-Dipstick 30 mg/dl (Negative); Specific Gravity, Urine 1.015 (1.002-1.030); Urine Clarity Cloudy (Clear); Urine Urobilinogen 4 mg/dl (Normal)
[2021-01-03 21:18] VITALS: BP 139/60; PULSE 84; RESP 18; TEMP 36.7; O2SAT 97
[2021-01-03 21:19] LABS: Urine Bilirubin Dipstick 1 mg/dL (Negative)
[2021-01-03 21:22] LABS: Differential Comment SCANNED
[2021-01-03 21:24] LABS: Bacteria 4+ /hpf (None Seen); White Blood Cells 10-25 SEEN /hpf (0-5)
[2021-01-03] MEDS: Potassium Chloride Oral Soln 20 MEQ/15 ML UDC 40 MEQ PO (21:34)
[2021-01-03 21:36] LABS: Lactic Acid 2.5 mmol/L (0.4-1.9)
[2021-01-03 22:00] VITALS: TEMP 36.6
[2021-01-03] MEDS: Vancomycin IV 1,000 MG/200 ML BAG 200 MG IV (22:10)
[2021-01-03 22:11] VITALS: BP 175/68; PULSE 84; RESP 18; TEMP 36.8; O2SAT 94
--- NOTE | 2021-01-03 22:30 | ED.VISSUMM ---
- ER Visit Summary Date of Service: 01/03/21 Chief Complaint: Legs numb History of Present Illness: The patient is a [address] Brian and Dr. Bautista. She has a history of diabetic neuropathy. However, she reports that she has not been able to feel her legs at all for the past 3 days. She has been sitting in a chair this whole time and unable to move. She reports that she has been having diarrhea and not been able to get up as well. Patient complains of sharp pain to her legs is 10 of 10 in severity for the past 3 days. Is worsened by touching it. She is taking Ultram and gabapentin without relief. On review of systems patient reports that she is short of breath from pain. She states that she is having diarrhea once a day. She does report that her stool has been black. She had dysuria for the past 3 days. She complains of generalized weakness. Physical Examination: Vitals: Stable. Afebrile. General: Well-nourished and well-developed. Head: Normocephalic atraumatic. Neck: Supple, no lymphadenopathy. No JVD. Nontender. Cardiovascular: Regular rate and rhythm. No murmurs. Respiratory: No respiratory distress. Clear to auscultation bilaterally. Abdominal: Soft, nontender, nondistended, normal bowel sounds. No guarding, rebound, or peritoneal signs. Back: Nontender. Extremities: I am unable to palpate a femoral or dorsalis pedis pulse bilaterally. Her left foot is white. Both feet are cold. Skin: Dime sized ulcer on the right buttock. There is violaceous bruising to her perianal area proximal left thigh and up into her vaginal area. She has a scabbed chronic ulcer that is 4 cm x 1.5 cm anterior left leg.. Neurologic: Alert and oriented ?3. Cranial nerves II through XII are intact. Normal strength and sensation. Psych: Normal affect. Test Results: EKG is sinus [address] depression. This is a change from 2018. Troponin is negative. Lactic acid is 2.5. CPK is 183. UA shows 10-25 white blood cells with 4+ bacteria. LFTs show an albumin of 2.6, globulin 3.1, alk phos 167, AST of 12. INR is 1.3. PTT is 35.1. Chem-7 shows a potassium of 3.0 and glucose 127. CBC shows a white count of 38.2 with 93 segmented neutrophils and 3 lymphocytes. Clinical Impression(s) from Imaging Studies Abdomen/Pelvis CTA 01/03/21 20:11 IMPRESSION: Occlusion of the infrarenal abdominal aorta. Occlusion of the right and left common iliac and bilateral external iliac arteries. Occlusion of femorofemoral bypass graft. Severe atherosclerotic changes with multiple areas of moderate to severe stenosis in the right common femoral artery, right superficial femoral artery and right popliteal artery. The right peroneal artery is followed down into the ankle. Right anterior tibial and posterior tibial arteries are occluded in the distal calf. Severe atherosclerotic disease in the left common femoral artery. There is occlusion of the left superficial femoral artery at its origin. There is reconstitution of the iliotibial trunk. The left peroneal artery is occluded at its origin. The left anterior tibial artery is occluded in the proximal calf. Left posterior tibial artery is occluded in the distal calf. There is prominent mucosal enhancement with wall thickening of a few distal ileal loops may represent inflammatory or ischemic changes. Electronically Signed: Dany Banuelos MD at 22:19 EDT Tel , Service support , Chest X-Ray 01/03/21 21:15 IMPRESSION: Normal x-ray examination of the chest. Electronically Signed: Dany Banuelos MD at 22:24 EDT Tel , Service support , Emergency Department Course and Treatment: Patient had an IV placed. She was given 2 L normal saline. She was started on a heparin drip with a bolus. She was given morphine and Zofran IV. She was given potassium p.o. She was given Zosyn and vancomycin IV. She is resting more comfortably. Treatment Plan: Patient was discussed with Dr. Reich, the vascular surgeon at [facility], who given the timeframe and the patient's infection does not want to take her to the operating room emergently. She was discussed with Dr. Lala who has accepted her to the ICU. Disposition: Transferred in critical condition. Impression: 1. Infrarenal abdominal aorta occlusion. 2. UTI. 3. Decubitus ulcer. 4. Hypokalemia. 5. Severe sepsis. 6. Critical care time 45 minutes. This note was generated with [employer] dictation software. It may contain incorrect words, spelling, and punctuation that were not noted in review of the chart prior to signing ED Disposition - Plan for ED Patient: Referrals: Isidro Brian MD [Primary Care Provider] -
[2021-01-03 23:00] VITALS: BP 175/68; PULSE 85; RESP 19; TEMP 36.6; O2SAT 96
[2021-01-03 23:11] VITALS: BP 175/68; PULSE 85; RESP 19; TEMP 36.6; O2SAT 96
[2021-01-03] MEDS: 0.9% Normal Saline 1,000 ML 999 ML IV (23:33)
[2021-01-04] VITALS: BP 187/71; PULSE 84; RESP 19; TEMP 36.6; O2SAT 95
[2021-01-04 00:23] VITALS: BP 187/161; PULSE 77; O2SAT 97
[2021-01-04] MEDS: Morphine 4 MG/ML Syringe IV (00:24)
[2021-01-04 00:30] LABS: Reflex Lactate? Y
[2021-01-04 13:47] LABS: Pathologist Review Reviewed
== END 2021-01-04 00:42 | disposition short-term general hospital (02) ==
LOC: ED 19:58
PROVIDERS: Emergency Provider Emergency Medicine; PCP Internal Medicine
DX: I74.09 Other arterial embolism and thrombosis of abdominal aorta (principal); N39.0 Urinary tract infection, site not specified; E87.6 Hypokalemia; R65.20 Severe sepsis without septic shock; I10 Essential (primary) hypertension; E11.40 Type 2 diabetes mellitus with diabetic neuropathy, unspecified; Z72.0 Tobacco use; Z79.82 Long term (current) use of aspirin; Z79.84 Long term (current) use of oral hypoglycemic drugs; Z79.899 Other long term (current) drug therapy
CPT/HCPCS: 71045; 75635; 80053; 81001; 82550; 83605; 84484; 85025; 85610; 85730; 87040; 87077; 87086; 87088; 87186; 87426; 93005; 96365; 96366; 96367; 96375; 96376; 99285; J7030; J7050; Q9967; A4216; J2405